=== PATIENT | female | born 1990 | race Caucasian/White ===

== ENCOUNTER → 2018-03-14 18:53 | Outpatient (CLI) | payer OTHER, SELFPAY ==
[2018-03-19 12:16] LABS: HPV Reflexed? NOT INDICATED
== END ==
PROVIDERS: Referring Provider Obstetrics & Gynecology; Visit Provider Obstetrics & Gynecology
DX: Z12.4 Encounter for screening for malignant neoplasm of cervix (principal)
CPT/HCPCS: 88175; G0145

== ENCOUNTER → 2019-03-18 11:25 | Outpatient (CLI) | payer OTHER, SELFPAY ==
--- NOTE | 2019-03-18 11:29 | RAD_ITS ---
STUDY: X-RAY - RIGHT SHOULDER REASON FOR EXAM: Female, 28 years old. Shoulder pain, no trauma TECHNIQUE: 4 view(s) of the shoulder. COMPARISON: None. FINDINGS: Normal glenohumeral articulation. Normal acromioclavicular joint. Normal acromion. Normal humeral head and visualized proximal humerus. The soft tissue structures are unremarkable. There is no demonstrated fracture. Normal visualized pulmonary apex. RAD/Shoulder min 2 Views IMPRESSION: Normal x-ray examination of the shoulder. Electronically Signed: Errol Ni MD at 23:02 EST , Service support ,
== END ==
PROVIDERS: Family Provider Family Medicine; PCP Family Medicine; Referring Provider Family Medicine; Visit Provider Family Medicine
DX: M25.511 Pain in right shoulder (principal)
CPT/HCPCS: 73030

== ENCOUNTER → 2020-12-25 | Outpatient (CLI) | payer OTHER, SELFPAY ==
[2020-12-31 16:53] LABS: HPV APTIMA, High Risk Negative (Negative)
== END | disposition home or self-care (01) ==
LOC: LABSPEC 14:07
PROVIDERS: PCP Family Medicine; Visit Provider Student in an Organized Health Care Education/Training Program
DX: Z12.4 Encounter for screening for malignant neoplasm of cervix (principal)
CPT/HCPCS: 87624; 88175; G0145

== ENCOUNTER → 2022-07-28 | Outpatient (CLI) | payer OTHER, SELFPAY ==
[2022-07-28 14:58] LABS: Hematocrit 35.5 % (37-47); Hemoglobin 12.5 g/dL (12.0-15.0); Mean Corp Hgb Conc 35.2 g/dL (32-36); Mean Corpuscular Hgb 32.9 pg (27.0-32.0); Mean Corpuscular Volume 93.4 fL (81-99); Mean Platelet Vol. 10.8 fl (6.2-12.0); Platelet Count 305 K/mm3 (150-450); RBC Distribution Width SD 41.3 fl (35.1-43.9)
[2022-07-28 15:16] LABS: Progesterone Level 0.27 ng/mL (See Comment)
[2022-07-28 16:12] LABS: Estradiol 137.7 pg/mL; Follicle Stimulating Hormone 2.7 mIU/mL; Luteinizing Hormone 5.7 mIU/mL; Prolactin 8.5 ng/mL; T4 Free Direct 0.91 ng/dL (0.76-1.46); Thyroid Stim Hormone (TSH) 1.77 uIU/mL (0.358-3.74)
[2022-08-04 12:09] LABS: Testosterone, % Free 1.46 % (0.50-2.80); Testosterone, Free 0.31 ng/dL (0.10-0.85); Testosterone, Total 21 ng/dL (8-60)
== END | disposition home or self-care (01) ==
LOC: WOBLAB 13:24
PROVIDERS: PCP Family Medicine; Visit Provider Student in an Organized Health Care Education/Training Program
DX: N92.6 Irregular menstruation, unspecified (principal)
CPT/HCPCS: 36415; 82627; 82670; 83001; 83002; 84144; 84146; 84402; 84403; 84439; 84443; 85027; 82626

== ENCOUNTER 2023-08-02 12:54 | Emergency (ER) | payer OTHER, SELFPAY ==
[2023-08-02 12:55] VITALS: BP 131/93; PULSE 66; RESP 14; TEMP 36.1; O2SAT 97; BMI 25.9
--- NOTE | 2023-08-02 13:22 | EKG12_ITS ---
Test Reason : CP Blood Pressure : / mmHG Vent. Rate : 070 BPM Atrial Rate : 070 BPM P-R Int : 162 ms QRS Dur : 072 ms QT Int : 382 ms P-R-T Axes : 017 045 050 degrees QTc Int : 412 ms Normal sinus rhythm with sinus arrhythmia Normal ECG No previous ECGs available Confirmed by DAVID DANIEL, SHERWIN ([id number]), purchase request editor SLY WAHL ([id number]) on 08/08/2023 6:13:25 AM Referred By: JESÚS/XAVIER Confirmed By:SHERWIN HERNANDEZ MD
[2023-08-02 13:29] VITALS: O2SAT 97
[2023-08-02] MEDS: Aspirin 81 MG TAB.CHEW 324 MG PO (13:32)
--- NOTE | 2023-08-02 13:39 | ED.VIS.CHEST ---
HPI History of Present Illness Chief Complaint: Chest Pain Informant: patient Onset/Context/Timing Onset: Today Activity at onset: sudden Timing: Continuous Quality: Positive for Sharp Location: Substernal Worsened By: Nothing Relieved By: - (Hot bath) Associated Symptoms: Positive for Nausea and Vomiting; Negative for Diaphoresis, Dyspnea, Cough, Fever, Lightheadedness, Acid Reflux or Palpitations Narrative Narrative: Patient presents with chest pain that began today. Patient states it began earlier this morning. Patient states it began rather suddenly. Patient describes it as sharp pain over her lower sternum and tightness around her lower chest. Patient states it got somewhat better after taking a hot bath. Patient admits to an episode of nausea and vomiting. Patient denies any shortness of breath or diaphoresis. Patient denies any lightheadedness or dizziness. Patient denies any cough or fever. CVD Risk Factors: Negative for Hypertension, Diabetes, Hypercholesterolemia, Family History 1' </=55 or Smoking PE Risk Factors: Negative for Recent Travel/Surgery, Recent Immobilization, Prior DVT or PE or Cancer PFSH PFSH Medical History no medical history no medical history Home Medications ?Medication ?Instructions ?Recorded ?Last Taken ?Type omeprazole 20 mg capsule,delayed 20 mg PO DAILY #30 CAPSULES 08/02/23 Unknown Rx release Allergy/AdvReac Type Severity Reaction Status Date / Time No Known Allergies Allergy Verified 08/02/23 12:57 Surgical History no surgical history no surgical history Social History Smoking Status: Never smoker ROS ROS ED Constitutional Constitutional ED: Reports chills; Denies fever(s) Eyes Eyes: Denies blurry vision or change in vision ENT ENT ED: Denies rhinorrhea or sore throat Cardiovascular Cardiovascular: Reports chest pain; Denies palpitations Respiratory/Chest Respiratory/Chest: Denies cough or dyspnea Gastrointestinal Gastrointestinal: Reports nausea and vomiting; Denies abdominal pain Genitourinary Genitourinary ED: Denies dysuria or hematuria Musculoskeletal Musculoskeletal: Reports back pain; Denies neck pain Integumentary Denies abscess or rash Neurologic Neurologic: Denies headache(s) or weakness Allergic/Immunologic Allergic/Immunologic ED: Denies mouth swelling or urticaria EXAM Physical Exam Const Vital Signs: 08/02/23 12:55 08/02/23 13:29 08/02/23 13:55 Temperature 96.9 F L Temperature Source Temporal Pulse Rate 66 74 Respiratory Rate 14 18 Blood Pressure 131/93 H 135/92 H Blood Pressure Mean 105 106 Pulse Ox 97 97 98 Oxygen Delivery Method Room Air Room Air Room Air 08/02/23 14:00 Temperature 97.8 F Temperature Source Temporal Pulse Rate 97 Respiratory Rate 16 Blood Pressure 135/92 H Blood Pressure Mean 106 Pulse Ox 96 Oxygen Delivery Method Room Air Positive well nourished and well developed General Appearance ED: well developed and NAD HEENT Reports moist mucous membranes Neck supple and no JVD Chest Wall Chest Narrative: There is reproducible tenderness over the lower sternum. There is no bony crepitance or step-off noted. There is no subcutaneous emphysema noted. Resp normal respiratory effort and clear to auscultation bilaterally Cardio regular rate and regular rhythm GI soft to palpation, non-tender and non-distended Extremity normal to inspection Neuro oriented x3, CN's II-XII intact bilaterally and no sensory deficits noted Sensorium / Orientation: awake and alert Motor Exam: strength 5/5 throughout Psych mental status grossly normal Heart Score History: Moderately Suspicious ECG: Normal Age: </= 45 years Risk Factors: No Risk Factors Troponin: </= Normal Limit Score: 1 MDM MDM MDM Narrative Medical decision making narrative: Differential diagnosis includes cardiac dysrhythmia, cardiac ischemia, pulmonary embolism, pneumonia, pneumothorax, electrolyte abnormality, GERD, and anxiety. EKG will be obtained to assess for cardiac dysrhythmia and cardiac ischemia. Chest x-ray will be obtained to assess for pneumonia and pneumothorax. CBC will be obtained to assess for leukocytosis and anemia. Basic metabolic profile will be obtained to assess for electrolyte abnormality and renal function. High-sensitivity troponin will be obtained to assess for cardiac ischemia. D-dimer will be obtained to assess for pulmonary embolism. Lab Data Attestation: I reviewed the patient's lab results. Lab results narrative: CBC was reviewed. There is a mild leukocytosis of 16.1. The remainder was within normal limits. Basic metabolic profile was reviewed and was within normal limits. High-sensitivity troponin was reviewed and was normal at 3. D-dimer was reviewed and was elevated at 0.65. Serum hCG was reviewed and was negative. Labs: Laboratory Results - last 24 hr 08/02/23 08/02/23 13:20 14:13 WBC 16.1 H RBC 4.29 Hgb 13.5 Hct 39.6 MCV 92.3 MCH 31.5 MCHC 34.1 RDW Std Deviation 40.5 RDW Coeff of Remigio 12.0 Plt Count 349 MPV 11.5 Immature Gran % (Auto) 0.600 Neut % (Auto) 82.6 H Lymph % (Auto) 9.8 L [place] % (Auto) 6.9 Eos % (Auto) 0.0 Baso % (Auto) 0.1 Absolute Neuts (auto) 13.3 H Absolute Lymphs (auto) 1.58 Nucleated RBC % 0 D-Dimer Quant (PE/DVT) 0.65 H* Sodium 135 L Potassium 3.8 Chloride 101 Carbon Dioxide 25.0 Anion Gap 9 BUN 11 Creatinine 0.79 Estim Creat Clear Calc 96.29 Est GFR (MDRD) Af Amer 108 Est GFR (MDRD) Non-Af 89 BUN/Creatinine Ratio 13.9 Glucose 115 H Calcium 9.7 Troponin I High Sens 3 Serum , Qual NEGATIVE Radiography Chest X-Ray - ED: 2 View, Read by ED Physician, Read by Radiologist and No Acute Disease Diagnostic Testing: Clinical Impression(s) from Imaging Studies Chest X-Ray 08/02/23 13:44 IMPRESSION: Scattered calcified granulomas. No acute abnormality is seen. Electronically Signed: Ryder Diamond MD at 14:01 EDT , Chest CTA 08/02/23 14:45 IMPRESSION: Normal CTA chest examination, without a demonstrated pulmonary embolism or arterial dissection. Electronically Signed: Ryder Diamond MD at 15:09 EDT , PA and lateral chest x-ray was obtained. There are 2 views. On my independent interpretation, lung hood are clear. There is normal cardiac silhouette. Bony thorax is normal. There is no acute process noted. Radiologist also interpreted the x-ray and agrees. Because of the elevated D-dimer, CTA of the chest was obtained. There is no evidence of pulmonary embolism or aortic dissection. Was interpreted by the radiologist was also independently reviewed by myself. EKG Initial EKG: Attestation: I personally reviewed and interpreted this EKG as follows: Interpretation: Sinus Rhythm (70) and No Acute Injury Pattern Comments: EKG was obtained. On my independent interpretation, it showed a normal sinus rhythm with a rate of 70. OH interval, QRS interval, and QTc intervals were all normal. [place] was normal. There are no acute ST or T wave changes. Prior EKG tracings: not available for review Prior: No Prior Treatment and Re-Evaluation :: Patient was given aspirin here. Patient was advised of her findings. Patient has a HEART score of 1. Patient was advised that this is low risk for acute cardiac event. Patient is feeling better on reevaluation. Patient was given a prescription for omeprazole. Patient was instructed to follow-up with her primary care physician in 5 to 7 days. Patient was instructed to return if worse in any way. Patient understood and was agreeable with the plan. All questions were answered. Discharge Plan Triage Chief Complaint: Chest Pain ED Provider: Mina Tate Dx/Rx/DC Orders Clinical Impression: Chest pain of uncertain etiology, GERD (gastroesophageal reflux disease) Instructions: ED Chest Pain, Uncertain Cause Prescriptions: New omeprazole 20 mg capsule,delayed release(DR/EC) 20 mg PO DAILY Qty: 30 0RF Primary Care Provider: Naman Wilkerson Referrals: Naman Wilkerson MD [Primary Care Provider] - 5-7 Days Print Language: Macedonian Disposition Disposition: Home, Self Care
[2023-08-02 13:41] LABS: Absolute Lymphocyte Count 1.58 X10^3/uL (0.83-4.51); Absolute Neutrophil Count 13.3 X10^3/uL (2.0-7.7); Basophil# 0.02 X10^3/uL; Basophil% 0.1 % (0-1); Hematocrit 39.6 % (37-47); Hemoglobin 13.5 g/dL (12.0-15.0); Lymphocyte # 1.58 X10^3/ul (0.83-4.51); Lymphocyte % 9.8 % (19-41); Mean Corp Hgb Conc 34.1 g/dL (32-36); Mean Corpuscular Hgb 31.5 pg (27.0-32.0); Mean Corpuscular Volume 92.3 fL (81-99); Mean Platelet Vol. 11.5 fl (6.2-12.0); Monocyte# 1.11 X10^3/uL; Monocyte% 6.9 % (0-10); NRBC Flagged by Analyzer 0 % (0-5); Neutrophil # 13.27 X10^3/uL (2.7-7.7); Neutrophil % 82.6 % (47-70); Platelet Count 349 K/mm3 (150-450); RBC Distribution Width SD 40.5 fl (35.1-43.9); Red Blood Count 4.29 M/mm3 (4.2-5.4); White Blood Count 16.1 K/mm3 (4.4-11.0)
--- NOTE | 2023-08-02 13:44 | RAD_ITS ---
STUDY: X-RAY CHEST REASON FOR EXAM: Female, 33 years old. Chest pain TECHNIQUE: PA and lateral views of the chest. COMPARISON: None. FINDINGS: EKG electrodes are seen. Scattered calcified granulomas. The lungs are clear. There is no demonstrated pleural abnormality. Normal size heart. Calcified bilateral hilar lymph nodes. Normal visualized pulmonary arteries. Normal visualized aortic arch and descending thoracic aorta. Normal visualized thoracic spine. Normal visualized ribs, clavicles, and shoulders. There is no demonstrated abnormality of the visualized soft tissue structures of the upper abdomen. RAD/Chest PA and Lateral IMPRESSION: Scattered calcified granulomas. No acute abnormality is seen. Electronically Signed: Ryder Diamond MD at 14:01 EDT ,
[2023-08-02 13:47] LABS: Anion Gap 9 (5-15); BUN 11 mg/dL (7-18); BUN/Creat Ratio 13.9 RATIO (10-20); Calcium,Total 9.7 mg/dL (8.5-10.1); Chloride 101 mmol/L (98-107); Creatinine, Serum 0.79 mg/dL (0.55-1.02); EST Glomerular Filtration Rate 89 mL/min (>60); Est Glom Filt Rate - Afr Amer 108 mL/min (>60); Estimated Creatinine Clearance 96.29 ml/min; Glucose 115 mg/dL (74-106); Potassium 3.8 mmol/L (3.5-5.1); Sodium Level 135 mmol/L (136-145); Troponin-I HS 3 pg/mL (3.0-54.0)
[2023-08-02 13:51] LABS: D-Dimer Quantitative (DVT/PE) 0.65 FEU/ug/m (0.27-0.49)
[2023-08-02 13:55] VITALS: BP 135/92; PULSE 74; RESP 18; O2SAT 98
[2023-08-02 14:00] VITALS: BP 135/92; PULSE 97; RESP 16; TEMP 36.6; O2SAT 96
[2023-08-02 14:35] LABS: Internal QC Validated? YES +Cl - CLEAR BKGD; Pregnancy, Serum, hCG Quali. NEGATIVE Negative
--- NOTE | 2023-08-02 14:45 | CT_ITS ---
STUDY: CTA CHEST REASON FOR EXAM: Female, 33 years old. Elevated D-dimer RADIATION DOSAGE (If Supplied By Facility): CTDIvol = ( 7.38 ) mGy, DLP = ( 260.84 ) mGycm TECHNIQUE: The examination was performed with the intravenous administration of IV 100mL Isovue-370. Post-processing of the angiographic images was performed, with multiplanar reformation and 3D reconstruction. Individualized dose optimization techniques were used for this CT. COMPARISON: Comparison is made with prior chest radiograph done earlier today. FINDINGS: Normal enhancement of the main pulmonary artery and right and left pulmonary arteries. Normal enhancement of the bilateral peripheral pulmonary arteries. There is no demonstrated pulmonary embolism. Normal thoracic aorta and visualized great vessels. There is no demonstrated aortic dissection. Normal heart and pericardium. Normal mediastinum. Normal hilar regions. Normal visualized trachea and bronchi. The lungs are well expanded. Normal pulmonary parenchyma. Normal pleura. Normal chest wall structures. Normal osseous structures. Normal visualized upper abdomen. CT/CTA Chest W/WO Contrast IMPRESSION: Normal CTA chest examination, without a demonstrated pulmonary embolism or arterial dissection. Electronically Signed: Ryder Diamond MD at 15:09 EDT ,
[2023-08-02 15:00] VITALS: BP 102/77; PULSE 72; RESP 18; O2SAT 98
[2023-08-02 15:30] VITALS: BP 102/77; PULSE 68; RESP 15; TEMP 36.3; O2SAT 100
== END 2023-08-02 15:30 | disposition home or self-care (01) ==
PROVIDERS: Emergency Provider Emergency Medicine; PCP Family Medicine; Visit Provider Emergency Medicine
DX: R07.9 Chest pain, unspecified (principal); K21.9 Gastro-esophageal reflux disease without esophagitis; R11.2 Nausea with vomiting, unspecified; M54.9 Dorsalgia, unspecified
CPT/HCPCS: 71046; 71275; 80048; 84484; 84703; 85025; 85379; 93005; 99284; Q9967; A4216

== ENCOUNTER 2023-12-13 13:55 | Inpatient (IN) | payer OTHER, SELFPAY ==
[2023-12-13] VITALS (7 sets, daily range): BP systolic 126–141; BP diastolic 84–99; PULSE 76–91; RESP 16–18; TEMP 36.7–36.9; O2SAT 97–100; BMI 24.5; BMI 28.9
--- NOTE | 2023-12-13 14:13 | CT_ITS ---
STUDY: CT ABDOMEN AND PELVIS WITH CONTRAST REASON FOR EXAM: Female, 33 years old. Upper abd pain RADIATION DOSAGE (If Supplied By Facility): CTDIvol = ( 15.80 ) mGy, DLP = ( 588.95 ) mGycm TECHNIQUE: Transaxial images were obtained from the dome of the diaphragm to the symphysis pubis without oral contrast. IV 75mL Isovue-370 was administered. Sagittal and coronal images were reconstructed. Individualized dose optimization techniques were used for this CT. COMPARISON: None. FINDINGS: The visualized lung bases are unremarkable. The visualized portions of the heart are within normal limits. Intrahepatic biliary ductal dilatation. The gallbladder is distended. Mild degree of bladder wall thickening. Dilatation of the common bile duct down to the head of the pancreas. No definite choledocholithiasis seen. Endoscopic correlation to rule out possible sphincter of Oddi abnormality recommend Normal spleen. Normal pancreas. Normal bilateral adrenal glands. Normal right kidney. Normal left kidney. Normal visualized stomach. Normal small intestine. Normal colon. The appendix is visualized and appears normal. Normal abdominal aorta. Normal inferior vena cava. Normal retroperitoneum. Normal urinary bladder. Normal abdominal wall. Normal osseous structures. Loss of the normal lumbar lordosis. CT/Abdomen/Pelvis W IV Cont ONLY IMPRESSION: Gallbladder is distended with dilated intrahepatic biliary ducts as well as dilated common bile duct down to the level of the ampulla of Vater. Correlation with ultrasound is recommended for further evaluation. A lesion in the region of the ampulla of Vater should be removed. Electronically Signed: Ryder Diamond MD at 14:54 EDT ,
--- NOTE | 2023-12-13 14:15 | ED.VIS.GI ---
HPI HPI - GI History of Present Illness Chief Complaint: Chest Pain Detail of Chief Complaint: Epigastric abdominal pain radiating in the chest. Informant: patient Abdominal Pain/Flank Pain Onset: Weeks Context: Gradual Onset Timing: Continuous Quality: Aching and Burning Location: Epigastric and See Diagram (Radiates into chest and back.) Current Severity: Mild Maximum Severity: Moderate Worsened by: Food Relieved by: Nothing Nausea/Vomiting/Emesis GI Symptom: Positive for Nausea and Vomiting Onset: Days Severity: Mild Diarrhea/Melena/Hematochezia GI Symptom: Negative for Diarrhea, Melena or Hematochezia Associated Symptoms Associated Symptoms: Negative for Dysuria, Frequency, Hematuria or Urgency LMP: 3 weeks ago Narrative Narrative: 33-year-old healthy female no seen past medical history. No seen prior abdominal surgeries. States 2 weeks ago started in epigastric Randy pain radiating her chest and back. Primary care physician's office started her on omeprazole twice a day, Carafate 4 times a day and Zofran. Sincerity she has had nausea vomiting with difficulty keeping anything down. No diarrhea. No dysuria. She has had low-grade fevers of 100 201. Denies any vaginal bleeding or discharge. Last menstrual period was about 3 weeks ago. She has had a recent workup for chest pain and it was negative. Prior similar symptoms: No Recent Illness/Hospitalization: No PFSH PFSH Medical History Gastric ulcer Medical History no medical history no medical history Home Medications ?Medication ?Instructions ?Recorded ?Last Taken ?Type omeprazole 20 mg capsule,delayed 20 mg PO DAILY #30 CAPSULES 08/02/23 12/13/23 Rx release norethin-ethinyl estradiol-iron 1 tab PO QDAY 12/13/23 12/12/23 History 0.8 mg-25 mcg(24)/75 mg(4) chew tablet ondansetron 8 mg disintegrating 8 mg PO Q8H PRN nausea 12/13/23 12/12/23 History tablet Allergy/AdvReac Type Severity Reaction Status Date / Time No Known Allergies Allergy Verified 12/13/23 13:59 Family History Other Hyperlipidemia Hypertension Social History Smoking Status: Never smoker alcohol intake: current alcohol intake frequency: a few times a week substance use type: does not use frequency: 1-2 times per week ROS ROS ED ROS Narrative Epigastric abdominal pain. Nausea and vomiting. Intermittent fever. Constitutional Constitutional ED: Reports chills and fever(s) ENT ENT ED: Denies ear pain Cardiovascular Cardiovascular: Reports chest pain Respiratory/Chest Respiratory/Chest: Denies cough or dyspnea Gastrointestinal Gastrointestinal: Reports abdominal pain, nausea and vomiting; Denies constipation, diarrhea or melena Genitourinary Genitourinary ED: Denies dysuria or hematuria Musculoskeletal Musculoskeletal: Reports back pain; Denies arthralgias Neurologic Neurologic: Denies headache(s) Psychiatric Psychiatric: Denies anxiety Endocrine Endocrinology: Denies polydipsia Hematologic/Lymphatic Hematologic/Lymphatic: Denies easy bleeding Allergic/Immunologic Allergic/Immunologic ED: Denies mouth swelling EXAM Physical Exam Narrative Exam Narrative: 33-year-old female vital signs stable afebrile. Pulse ox 9% on room air no hypoxia. No distress. Sitting upright in bed. Clinically looks well. H EENT exam unremarkable. Mytrex membranes. Neck nontender no lymphadenopathy. Lungs clear to auscultation bilateral. Heart regular rate and rhythm rate about 80 no murmur. Chest wall ribs nontender. Back nontender. No reproducible pain. Abdomen soft nondistended normal bowel sounds no peritoneal signs. Epigastric reproducible pain. Right upper or right lower quadrant unremarkable. No hernia or mass. No distention or obstruction. Soft. Flat abdomen. Moving all 4 extremities. Nontender no edema. She is awake and alert. No focal motor deficits. Const Vital Signs: 12/13/23 13:57 12/13/23 14:39 12/13/23 14:55 Temperature 98.1 F Temperature Source Oral Pulse Rate 81 76 Respiratory Rate 16 16 Respiratory Effort Normal Non-Labored Blood Pressure 141/94 H 131/85 H Blood Pressure Mean 109 100 Pulse Ox 100 97 Oxygen Delivery Method Room Air Room Air 12/13/23 15:34 Temperature 98.2 F Temperature Source Pulse Rate 91 Respiratory Rate 18 Respiratory Effort Blood Pressure 131/85 H Blood Pressure Mean 100 Pulse Ox 99 Oxygen Delivery Method Positive well nourished and well developed; Negative for obese, cachectic, contractures or unkempt General Appearance ED: well developed and NAD; Negative for unkempt, cachectic, contractures or pallor Nutritional Appearance: Negative for cachectic or obese HEENT Reports moist mucous membranes normocephalic and atraumatic; Negative for trauma or tenderness Eyes PERRL and EOMs intact bilaterally General Eye ED: Negative for pale conjunctiva or scleral icterus Neck no lymphadenopathy, supple and no JVD General: Negative for tenderness Carotids: Negative for other Lymph Lymphatic: Negative for other Resp normal respiratory effort and clear to auscultation bilaterally Auscultation: Negative for rales, rhonchi or wheezes Cardio regular rate, regular rhythm, S1 normal heart sound, S2 normal heart sound and no murmurs Rate: Negative for bradycardia or tachycardic Rhythm: Negative for abnormal rhythm GI non-distended and no masses; Negative for non-tender GI Narrative: Reproducible tenderness epigastric region only. No hernia or mass. No distention. Soft. Auscultation: normoactive bowel sounds Palpation: soft and tender; Negative for guarding, hepatomegaly, splenomegaly, hernia, mass, pulsatile mass or rebound tenderness present Back/Spine no CVA tenderness General Back: Negative for CVA tenderness Cervical Spine: Negative for cervical spine tenderness Thoracic Spine / Upper Back: Negative for thoracic spinal tenderness Lumbar Spine / Lower Back: Negative for lumbar spinal tenderness Coccyx: Negative for other Extremity full ROM General Extremety ED: Negative for edema or tenderness General Extremity: Negative for edema Neuro CN's II-XII intact bilaterally and moves all extremities Sensorium / Orientation: alert, oriented to person, oriented to place and oriented to time; Negative for orientation impaired, confused, lethargic or stuporous Motor Exam: strength 5/5 throughout; Negative for general weakness or strength abnormal Psych mental status grossly normal and thought process normal Appearance: Negative for unkempt Mood & Affect: Negative for depressed, anxious or tearful Skin no wounds General Skin Exam: Negative for jaundice or pallor Lesions: no lesions Rashes: no rashes Trauma: Negative for abrasion Nails: Negative for discolored MDM MDM MDM Narrative Medical decision making narrative: 33-year-old female with epigastric abdominal pain may be reflux versus gastritis versus ulcer or gallbladder disease. Possible bit less likely pancreatitis or gallbladder disease. Patient will be worked up using screening labs for abdominal diagnoses a CT of obtained due to the fever which does not really go along with the rest of that history. Should be treated with Zofran for nausea GI cocktail and Protonix. Repeat exam patient is doing well at 3:30 PM. I spoke to general surgery on-call. Ultrasound will be obtained. I have the hospitalist on page and also GI. Most likely the patient has a stone that is causing obstruction. Will need an ERCP and then decision will be made if needs a cholecystectomy. To be determined. The hospitalist admit the patient. Currently patient is doing well. Abdomen is benign. She and I discussed her test results. History & Record Review Discussion w/independent historian: Patient Additional record(s) reviewed:: Prior inpatient record, Prior outpatient record, Prior ED visit and Prior labs Lab Data Attestation: I reviewed the patient's lab results. Lab results narrative: CBC unremarkable. White count of 9. H&H 13 and 39. Platelets 416. Electrolytes sodium 135. Gap 11. Normal BUN and creatinine of 8 and 0.7. Liver enzymes are elevated including total bilirubin 9.7. AST at 318. ALT of 445. Alk phos of 253. Lipase normal at 70. Serum test negative. UA shows ketones. Positive nitrites but no white or red cells. Only 1+ bacteria. She is having no urinary symptoms. I will not treat that. CAT scan of the abdomen and pelvis shows a dilated gallbladder with dilated intrahepatic biliary ducts. As well as a common bile duct Labs: Laboratory Results - last 24 hr 12/13/23 12/13/23 14:11 14:34 WBC 9.1 RBC 4.19 L Hgb 13.1 Hct 39.3 MCV 93.8 MCH 31.3 MCHC 33.3 RDW Std Deviation 41.0 RDW Coeff of Remigio 11.9 Plt Count 416 MPV 10.8 Immature Gran % (Auto) 0.400 Neut % (Auto) 73.2 H Lymph % (Auto) 16.1 L [place] % (Auto) 9.8 Eos % (Auto) 0.3 Baso % (Auto) 0.2 Absolute Neuts (auto) 6.6 Absolute Lymphs (auto) 1.46 Nucleated RBC % 0 Sodium 135 L Potassium 3.8 Chloride 98 Carbon Dioxide 26.0 Anion Gap 11 BUN 8 Creatinine 0.71 Estim Creat Clear Calc 97.32 Est GFR (MDRD) Af Amer 122 Est GFR (MDRD) Non-Af 101 BUN/Creatinine Ratio 11.3 Glucose 80 Calcium 10.1 Total Bilirubin 9.70 H AST 318 H ALT 445 H Alkaline Phosphatase 253 H Total Protein 8.5 H Albumin 4.1 Globulin 4.4 H Albumin/Globulin Ratio 0.9 Lipase 70 Serum , Qual NEGATIVE Urine Color Yellow Urine Clarity Sl. Cloudy Urine pH 6.5 Ur Specific [place] 1.015 Urine Protein 30 H Urine Glucose (UA) Normal Urine Ketones 150 A* Urine Occult Blood Negative Urine Nitrite Positive H Urine Bilirubin 6 H Urine Urobilinogen 8 H Ur Leukocyte Esterase 25 H Urine RBC 0 SEEN Urine WBC 0-5 SEEN Ur Squamous Epith Cells 0-5 SEEN Urine Bacteria 1+ Urine Mucus 0 SEEN Radiography Diagnostic Testing: Clinical Impression(s) from Imaging Studies Abdomen/Pelvis CT 12/13/23 14:13 IMPRESSION: Gallbladder is distended with dilated intrahepatic biliary ducts as well as dilated common bile duct down to the level of the ampulla of Vater. Correlation with ultrasound is recommended for further evaluation. A lesion in the region of the ampulla of Vater should be removed. Electronically Signed: Ryder Diamond MD at 14:54 EDT , Discharge Plan Dx/Rx/DC Orders Clinical Impression: Abdominal pain, Biliary obstruction, Elevated liver enzymes, Cholelithiasis Disposition Disposition: Acute Care Hospital [facility] Discharge Date/Time: 12/13/23 16:13
[2023-12-13] MEDS: Lidocaine 2% Viscous15 ML UDC 15 ML PO (14:20)
[2023-12-13] MEDS: Ondansetron 4 MG/2 ML Vial IV ×2 (14:20→22:24)
[2023-12-13] MEDS: Mag Hydrox/Al Hydrox/Simeth 30 ML UDC PO (14:20)
[2023-12-13 14:26] LABS: Absolute Lymphocyte Count 1.46 X10^3/uL (0.83-4.51); Absolute Neutrophil Count 6.6 X10^3/uL (2.0-7.7); Basophil# 0.02 X10^3/uL; Basophil% 0.2 % (0-1); Eosinophil# 0.03 X10^3/uL; Eosinophils% 0.3 % (0-5); Hematocrit 39.3 % (37-47); Hemoglobin 13.1 g/dL (12.0-15.0); Lymphocyte # 1.46 X10^3/ul (0.83-4.51); Lymphocyte % 16.1 % (19-41); Mean Corp Hgb Conc 33.3 g/dL (32-36); Mean Corpuscular Hgb 31.3 pg (27.0-32.0); Mean Corpuscular Volume 93.8 fL (81-99); Mean Platelet Vol. 10.8 fl (6.2-12.0); Monocyte# 0.89 X10^3/uL; Monocyte% 9.8 % (0-10); NRBC Flagged by Analyzer 0 % (0-5); Neutrophil # 6.63 X10^3/uL (2.7-7.7); Neutrophil % 73.2 % (47-70); Platelet Count 416 K/mm3 (150-450); RBC Distribution Width CV 11.9 % (11.6-14.6); Red Blood Count 4.19 M/mm3 (4.2-5.4); White Blood Count 9.1 K/mm3 (4.4-11.0)
[2023-12-13 14:37] LABS: Mucous, Urine 0 SEEN /hpf (<or=2+); Red Blood Cells-Urine 0 SEEN /hpf (0-5)
[2023-12-13 14:37] LABS: Internal QC Validated? YES +Cl - CLEAR BKGD; Pregnancy, Serum, hCG Quali. NEGATIVE Negative
[2023-12-13 14:40] LABS: Color, Urine Yellow (Yellow); Glucose, Dipstick Normal (Normal); Leukocyte Esterase-Dipstick 25 /ul (Negative); Nitrite-Dipstick Positive (Negative); Occult Blood-Urine Negative /ul (Negative); Protein-Dipstick 30 mg/dl (Negative); Specific Gravity, Urine 1.015 (1.002-1.030); Urine Clarity Sl. Cloudy (Clear); Urine Urobilinogen 8 mg/dl (Normal); Urine pH 6.5 (5.0 - 8.0)
[2023-12-13 14:41] LABS: Urine Bilirubin Dipstick 6 mg/dL (Negative)
[2023-12-13 14:42] LABS: ALB/GLOB Ratio 0.9 RATIO (0.9-2.4); AST(SGOT) 318 U/L (15-37); Alanine Aminotransfer ALT/SGPT 445 U/L (13-56); Albumin, Serum 4.1 g/dL (3.2-5.0); Alkaline Phosphatase 253 U/L (45-117); Anion Gap 11 (5-15); BUN 8 mg/dL (7-18); BUN/Creat Ratio 11.3 RATIO (10-20); Calcium,Total 10.1 mg/dL (8.5-10.1); Chloride 98 mmol/L (98-107); Creatinine, Serum 0.71 mg/dL (0.55-1.02); EST Glomerular Filtration Rate 101 mL/min (>60); Est Glom Filt Rate - Afr Amer 122 mL/min (>60); Estimated Creatinine Clearance 97.32 ml/min; Globulin 4.4 g/dL (2.2-4.2); Glucose 80 mg/dL (74-106); Lipase 70 U/L (13-75); Potassium 3.8 mmol/L (3.5-5.1); Protein, Total 8.5 g/dL (6.4-8.2); Sodium Level 135 mmol/L (136-145)
[2023-12-13 14:43] LABS: Ketone-Dipstick 150 mg/dl (Negative)
[2023-12-13 14:45] LABS: Squamous Epithelial Cells - UA 0-5 SEEN /hpf (5-10)
[2023-12-13 14:46] LABS: Bacteria 1+ /hpf (None Seen); White Blood Cells 0-5 SEEN /hpf (0-5)
[2023-12-13] MEDS: Pantoprazole Sodium 40 MG in 0.9% Normal Saline (100mL MB+) 100 ML 330 MG IV (14:47)
--- NOTE | 2023-12-13 15:33 | HP.PCM.HOS_ITS ---
HPI - General General Date of Admission: 12/13/23 Date of Service: 12/13/23 Chief Complaint: Epigastric pain HPI Narrative KENNETH BEARDEN, is a 33 F with no significant medical history who presents emergency department with excruciating epigastric pain that radiated to her back. The pain is persistent. She describes the pain as sharp. The pain started about 2 weeks ago. Associated with her symptoms is nausea and vomiting. Also she reports a fever of 101 ?F at home. Patient was started on a PPI and Carafate at home. However his symptoms persisted. As her symptoms progressed she noticed yellowish discoloration of her skin in her eyes. Also her urine has been dark. [facility] Medical History Gastric ulcer Medical History no medical history Home Medications ?Medication ?Instructions ?Recorded ?Last Taken ?Type omeprazole 20 mg capsule,delayed 20 mg PO DAILY #30 CAPSULES 08/02/23 12/13/23 Rx release norethin-ethinyl estradiol-iron 1 tab PO QDAY 12/13/23 12/12/23 History 0.8 mg-25 mcg(24)/75 mg(4) chew tablet ondansetron 8 mg disintegrating 8 mg PO Q8H PRN nausea 12/13/23 12/12/23 History tablet Allergy/AdvReac Type Severity Reaction Status Date / Time No Known Allergies Allergy Verified 12/13/23 13:59 Family History Other Hyperlipidemia Hypertension no surgical history Social History Smoking Status: Never smoker alcohol intake: current alcohol intake frequency: a few times a week substance use type: does not use frequency: 1-2 times per week ROS ROS Narrative Pertinent positives and pertinent negatives as noted in HPI. All other systems were reviewed and are negative Vital Signs Vital Signs Vital Signs: 12/13/23 13:57 12/13/23 14:39 12/13/23 14:55 Temperature 98.1 F Temperature Source Oral Pulse Rate 81 76 Respiratory Rate 16 16 Respiratory Effort Normal Non-Labored Blood Pressure 141/94 H 131/85 H Blood Pressure Mean 109 100 Pulse Ox 100 97 Oxygen Delivery Method Room Air Room Air Weight Weight: 64.864 kg Body Mass Index (BMI) 24.5 Physical Exam Narrative Physical exam: General: Well-nourished, well-developed. Head: Normocephalic, atraumatic, no tenderness Eyes: Scleral icterus. Vision is grossly intact. EOMI ENT, no trauma, moist mucous membranes, no rhinorrhea Neck: Nontender, No thyromegaly. CVS: Regular rate and rhythm. S1-S2 present. No murmur, gallop or rub. Respiratory : clear to auscultation bilaterally, chest wall nontender Abdomen: Soft, nondistended, normal bowel sounds, no masses : Deferred Back: Nontender, no CVA tenderness, no midline spinal tenderness, deformities, step-offs Extremities: Nontender full range of motion, no trauma Skin: Jaundice, no trauma, abrasions Neuro: Alert, oriented, cranial nerves II through XII grossly intact. Psychiatry: Normal mood. Normal affect. Not depressed. Not anxious. Results Lab / Micro Data 12/13/23 14:11 12/13/23 14:11 Labs: Laboratory Results - last 24 hr 12/13/23 14:11: WBC 9.1, RBC 4.19 L, Hgb 13.1, Hct 39.3, MCV 93.8, MCH 31.3, MCHC 33.3, RDW Std Deviation 41.0, RDW Coeff of Remigio 11.9, Plt Count 416, MPV 10.8, Immature Gran % (Auto) 0.400, Neut % (Auto) 73.2 H, Lymph % (Auto) 16.1 L, [place] % (Auto) 9.8, Eos % (Auto) 0.3, Baso % (Auto) 0.2, Absolute Neuts (auto) 6.6, Absolute Lymphs (auto) 1.46, Nucleated RBC % 0, Sodium 135 L, Potassium 3.8, Chloride 98, Carbon Dioxide 26.0, Anion Gap 11, BUN 8, Creatinine 0.71, Estim Creat Clear Calc 97.32, Est GFR (MDRD) Af Amer 122, Est GFR (MDRD) Non-Af 101, BUN/Creatinine Ratio 11.3, Glucose 80, Calcium 10.1, Total Bilirubin 9.70 H , AST 318 H, ALT 445 H, Alkaline Phosphatase 253 H, Total Protein 8.5 H, Albumin 4.1, Globulin 4.4 H, Albumin/Globulin Ratio 0.9, Lipase 70, Serum , Qual NEGATIVE 12/13/23 14:34: Urine Color Yellow, Urine Clarity Sl. Cloudy, Urine pH 6.5, Ur Specific [place] 1.015, Urine Protein 30 H, Urine Glucose (UA) Normal, Urine Ketones 150 A*, Urine Occult Blood Negative, Urine Nitrite Positive H, Urine Bilirubin 6 H, Urine Urobilinogen 8 H, Ur Leukocyte Esterase 25 H, Urine RBC 0 SEEN, Urine WBC 0-5 SEEN, Ur Squamous Epith Cells 0-5 SEEN, Urine Bacteria 1+, Urine Mucus 0 SEEN Imaging Radiology Impression Abdomen/Pelvis CT 12/13/23 14:13 IMPRESSION: Gallbladder is distended with dilated intrahepatic biliary ducts as well as dilated common bile duct down to the level of the ampulla of Vater. Correlation with ultrasound is recommended for further evaluation. A lesion in the region of the ampulla of Vater should be removed. Electronically Signed: Ryder Diamond MD at 14:54 EDT , Assessment & Plan Assessment/Plan (1) Elevated liver enzymes: (2) Biliary obstruction: (3) Abdominal pain: QUALIFIERS: Abdominal location: epigastric Qualified Code(s): R 10.13 - Epigastric pain PLAN: Plan Abdomen and pelvis CT was independently interpreted. Results are : Agrees with delayed interpretation Symptomatic treatment with IV fluids. As needed Zofran for nausea and vomiting. Dilaudid IV as needed for pain NPV for ultrasound and n.p.o. after midnight. In between patient and have clear liquids We will hold off antibiotics for now. If patient has subjective fever consider antibiotics GI consult. General surgery consult. DVT prophylaxis: SCDs ordered Advance care planning: Discussed with patient and family advanced directives as well as CODE STATUS. Explained various CODE STATUS: FULL CODE, DNR CCA, DNR CCA with no intubation, and DNR CC- and what each meant. Patient elected to be a full code with CPR and intubation if warranted. Order was placed. Time spent on discussion 16 minutes. Time spent in the patient's overall evaluation,decision-making process, review of diagnostic data, adjustment of management, discussion with other providers, nursing and ancillary staff involved in patient's care documentation, 75 minutes. Charges/Coding Visit Charges Inpatient E&M: 58394 Init Hosp L3 Procedures Hospitalists Procedures: 40868 Advncd Care Plan 30 Min
--- NOTE | 2023-12-13 15:42 | US_ITS ---
INDICATION: biliary obstruction and pain EXAMINATION: Ultrasound US Abdomen RUQ (limited) TECHNIQUE: Galan-scale and color Doppler imaging was performed of the abdomen. COMPARISON: FINDINGS: LIVER: There is normal echotexture measuring 17.1 cm. No focal hepatic lesion. No intrahepatic biliary ductal dilatation. There is no free fluid. GALLBLADDER AND BILIARY TREE: Cholelithiasis and sludge. No pericholecystic fluid. Borderline gallbladder wall thickening is demonstrated. The proximal common bile duct measures 9 mm, which is dilated.. SONOGRAPHIC GERMAIN''S SIGN: Positive. PANCREAS: No focal abnormality is demonstrated in the pancreas. No pancreatic ductal dilatation. RIGHT KIDNEY: 11.0 x 5.7 x 5.0 cm. The cortex is 15 mm. There is no hydronephrosis. No shadowing calculus, focal lesion, or perinephric collection is demonstrated. VESSELS: Submitted longitudinal images of the intra-abdominal aorta demonstrate no gross abnormalities and are unremarkable. The IVC is patent. US/Gallbladder IMPRESSION: Cholelithiasis with borderline gallbladder wall thickness. Dilated common bile duct. Positive sonographic Germain''s sign. Electronically Signed: Dontrell Alcala DO at 18:28 EDT Reading Location ID and State: [facility] / [place] Tel [phone], Service support ,
--- NOTE | 2023-12-13 15:45 | NURSING ---
MED SURG AGYEPONG ABD PAIN, BILIARY OBSTRUCTION, ELEVATED LIVER ENZYMES
--- NOTE | 2023-12-13 18:29 | EX.PCM.CON.G ---
HPI Consult Data Date of Consult: 12/13/23 HPI Narrative Reason for Consultation: Jaundice, fever and hepatitis HPI Narrative: jorge SMITH as33 F with no significant medical history who presents emergency department with excruciating epigastric pain that radiated to her back. The pain is persistent. She describes the pain as sharp. The pain started about 2 weeks ago. Associated with her symptoms is nausea and vomiting. Also she reports a fever of 101 ?F at home. Patient was started on a PPI and Carafate at home. However his symptoms persisted. As her symptoms progressed she noticed yellowish discoloration of her skin in her eyes. Also her urine has been dark. She was seen in the gastrology clinic today and was told to come over to the ED. She was afebrile in the ED and normotensive with a blood pressure of 138/97 and a pulse of 86, respiratory rate of 18, temperature 98.2 and satting 98% on room air. Labs in the ED : WBC 9.1, RBC 4.19 L, Hgb 13.1, Hct 39.3, MCV 93.8, MCH 31.3, MCHC 33.3, RDW Std Deviation 41.0, RDW Coeff of Remigio 11.9, Plt Count 416 Sodium 135 L, Potassium 3.8, Chloride 98, Carbon Dioxide 26.0, Anion Gap 11, BUN 8, Creatinine 0.71, Glucose 80, Calcium 10.1, Total Bilirubin 9.70 H, AST 318 H, ALT 445 H, Alkaline Phosphatase 253 H, Total Protein 8.5 H, Albumin 4.1, Globulin 4.4 H, Urine Color Yellow, Urine Clarity Sl. Cloudy, Urine pH 6.5, Ur Specific [place] 1.015, Urine Protein 30 H, Urine Glucose (UA) Normal, Urine Ketones 150 A*, Urine Occult Blood Negative, Urine Nitrite Positive H, Urine Bilirubin 6 H, Urine Urobilinogen 8 H, Ur Leukocyte Esterase 25 H, Urine RBC 0 SEEN, Urine WBC 0-5 SEEN, Ur Squamous Epith Cells 0-5 SEEN, Urine Bacteria 1+, Urine Mucus 0 SEEN Ultrasound in the emergency room FINDINGS: LIVER: There is normal echotexture measuring 17.1 cm. No focal hepatic lesion. No intrahepatic biliary ductal dilatation. There is no free fluid. GALLBLADDER AND BILIARY TREE: Cholelithiasis and sludge. No pericholecystic fluid. Borderline gallbladder wall thickening is demonstrated. The proximal common bile duct measures 9 mm, which is dilated.. SONOGRAPHIC GERMAIN''S SIGN: Positive. PANCREAS: No focal abnormality is demonstrated in the pancreas. No pancreatic ductal dilatation. RIGHT KIDNEY: 11.0 x 5.7 x 5.0 cm. The cortex is 15 mm. There is no hydronephrosis. No shadowing calculus, focal lesion, or perinephric collection is demonstrated. VESSELS: Submitted longitudinal images of the intra-abdominal aorta demonstrate no gross abnormalities and are unremarkable. The IVC is patent. US/Gallbladder IMPRESSION: Cholelithiasis with borderline gallbladder wall thickness. Dilated common bile duct. Positive sonographic Germain''s sign. CT scan abdomen pelvis in the ED: FINDINGS: The visualized lung bases are unremarkable. The visualized portions of the heart are within normal limits. Intrahepatic biliary ductal dilatation. The gallbladder is distended. Mild degree of bladder wall thickening. Dilatation of the common bile duct down to the head of the pancreas. No definite choledocholithiasis seen. Endoscopic correlation to rule out possible sphincter of Oddi abnormality recommend Normal spleen. Normal pancreas. Normal bilateral adrenal glands. Normal right kidney. Normal left kidney. Normal visualized stomach. Normal small intestine. Normal colon. The appendix is visualized and appears normal. Normal abdominal aorta. Normal inferior vena cava. Normal retroperitoneum. Normal urinary bladder. Normal abdominal wall. Normal osseous structures. Loss of the normal lumbar lordosis. CT/Abdomen/Pelvis W IV Cont ONLY IMPRESSION: Gallbladder is distended with dilated intrahepatic biliary ducts as well as dilated common bile duct down to the level of the ampulla of Vater. Correlation with ultrasound is recommended for further evaluation. A lesion in the region of the ampulla of Vater should be removed. [facility] Medical History Gastric ulcer Medical History no medical history Home Medications ?Medication ?Instructions ?Recorded ?Last Taken ?Type omeprazole 20 mg capsule,delayed 20 mg PO DAILY #30 CAPSULES 08/02/23 12/13/23 Rx release norethin-ethinyl estradiol-iron 1 tab PO QDAY 12/13/23 12/12/23 History 0.8 mg-25 mcg(24)/75 mg(4) chew tablet ondansetron 8 mg disintegrating 8 mg PO Q8H PRN nausea 12/13/23 12/12/23 History tablet Allergy/AdvReac Type Severity Reaction Status Date / Time No Known Allergies Allergy Verified 12/13/23 13:59 Family History Other Hyperlipidemia Hypertension Surgical History no surgical history Social History Smoking Status: Never smoker alcohol intake: current alcohol intake frequency: a few times a week substance use type: does not use frequency: 1-2 times per week ROS Review of Systems ROS Unobtainable: other Constitutional Constitutional: Denies fatigue, fever(s), poor appetite, weight gain or weight loss ENT HEENT: Denies mouth lesions Cardiovascular Cardiovascular: Denies abdominal bloating, abdominal edema or abdominal pain Respiratory/Chest Respiratory/Chest: Denies change in mental status, change in phlegm color, chest congestion or chest tightness Gastrointestinal Gastrointestinal: Denies belching, bloating, change in bowel habits, change in stool character, chewing difficulty, coffee ground emesis, constipation, cramping, diarrhea, dyspepsia, dysphagia, early satiety, excessive flatus, fecal incontinence, heartburn, hematemesis, hematochezia, hemorrhoids, loose stools, melena, nausea, odynophagia, rectal bleeding, tenesmus, vomiting or weight changes Genitourinary Genitourinary: Denies abdominal discomfort, burning urination or itching Musculoskeletal Musculoskeletal: Reports as per HPI; Denies muscle weakness or myalgias Integumentary Integumentary: Denies jaundice Neurologic Neurologic: Denies lack of coordination or weakness Psychiatric Psychiatric: Denies confusion, depression, memory loss, mood swings, paranoia or suicidal ideation Endocrine Endocrinology: Denies systems reviewed and no addt'l complaints, except as documented Hematologic/Lymphatic Hematologic/Lymphatic: Denies anemia, easy bleeding, easy bruising or lymphadenopathy Allergic/Immunologic Allergic/Immunologic: Denies systems reviewed and no addt'l complaints, except as documented Physical Exam Narrative Physical exam: General: Well-nourished, well-developed. Head: Normocephalic, atraumatic, no tenderness Eyes: Scleral icterus. Vision is grossly intact. EOMI ENT, no trauma, moist mucous membranes, no rhinorrhea Neck: Nontender, No thyromegaly. CVS: Regular rate and rhythm. S1-S2 present. No murmur, gallop or rub. Respiratory : clear to auscultation bilaterally, chest wall nontender Abdomen: Soft, nondistended, normal bowel sounds, no masses : Deferred Back: Nontender, no CVA tenderness, no midline spinal tenderness, deformities, step-offs Extremities: Nontender full range of motion, no trauma Skin: Jaundice, no trauma, abrasions Neuro: Alert, oriented, cranial nerves II through XII grossly intact. Psychiatry: Normal mood. Normal affect. Not depressed. Not anxious. Lab / Micro Data 12/13/23 14:11 12/13/23 14:11 Labs: Laboratory Results - last 24 hr 12/13/23 14:11: WBC 9.1, RBC 4.19 L, Hgb 13.1, Hct 39.3, MCV 93.8, MCH 31.3, MCHC 33.3, RDW Std Deviation 41.0, RDW Coeff of Remigio 11.9, Plt Count 416, MPV 10.8, Immature Gran % (Auto) 0.400, Neut % (Auto) 73.2 H, Lymph % (Auto) 16.1 L, [place] % (Auto) 9.8, Eos % (Auto) 0.3, Baso % (Auto) 0.2, Absolute Neuts (auto) 6.6, Absolute Lymphs (auto) 1.46, Nucleated RBC % 0, Sodium 135 L, Potassium 3.8, Chloride 98, Carbon Dioxide 26.0, Anion Gap 11, BUN 8, Creatinine 0.71, Estim Creat Clear Calc 97.32, Est GFR (MDRD) Af Amer 122, Est GFR (MDRD) Non-Af 101, BUN/Creatinine Ratio 11.3, Glucose 80, Calcium 10.1, Total Bilirubin 9.70 H, AST 318 H, ALT 445 H, Alkaline Phosphatase 253 H, Total Protein 8.5 H, Albumin 4.1, Globulin 4.4 H, Albumin/Globulin Ratio 0.9, Lipase 70, Serum , Qual NEGATIVE 12/13/23 14:34: Urine Color Yellow, Urine Clarity Sl. Cloudy, Urine pH 6.5, Ur Specific [place] 1.015, Urine Protein 30 H, Urine Glucose (UA) Normal, Urine Ketones 150 A*, Urine Occult Blood Negative, Urine Nitrite Positive H, Urine Bilirubin 6 H, Urine Urobilinogen 8 H, Ur Leukocyte Esterase 25 H, Urine RBC 0 SEEN, Urine WBC 0-5 SEEN, Ur Squamous Epith Cells 0-5 SEEN, Urine Bacteria 1+, Urine Mucus 0 SEEN Imaging Radiology Impression Abdomen/Pelvis CT 12/13/23 14:13 IMPRESSION: Gallbladder is distended with dilated intrahepatic biliary ducts as well as dilated common bile duct down to the level of the ampulla of Vater. Correlation with ultrasound is recommended for further evaluation. A lesion in the region of the ampulla of Vater should be removed. Electronically Signed: Ryder Diamond MD at 14:54 EDT , Gallbladder Ultrasound 12/13/23 15:42 IMPRESSION: Cholelithiasis with borderline gallbladder wall thickness. Dilated common bile duct. Positive sonographic Germain''s sign. Electronically Signed: Dontrell Alcala DO at 18:28 EDT , Assessment & Plan Assessment/Plan (1) Elevated liver enzymes: (2) Biliary obstruction: (3) Abdominal pain: QUALIFIERS: Abdominal location: epigastric Qualified Code(s): R10.13 - Epigastric pain PLAN: Plan Very pleasant 33-year-old with no significant past medical history presents with abdominal pain : 1. Cholestatic hepatitis with jaundice likely secondary to choledocholithiasis causing significant hyperbilirubinemia and transaminitis along with increased LFTs. Recommend Zosyn therapy and ERCP because she had fever and severely obstructive jaundice. Abdomen and pelvis CT was independently interpreted. Results are : Agrees with delayed interpretation 2. Cholecystitis. She does not have any stones in her gallbladder but I think she should be seen for cholecystectomy. Charges/Coding Visit Charges Inpatient E&M: 06045 Init Hosp L3
[2023-12-13] MEDS: Piperacil/Tazobactam 3.375 GM in 0.9% Normal Saline (50mL MB+) 50 ML IV (21:59)
[2023-12-13] MEDS: HYDROmorphone 0.5 MG/0.5 ML SYRINGE IV (22:24)
[2023-12-14] VITALS (12 sets, daily range): BP systolic 106–149; BP diastolic 66–92; PULSE 6–110; RESP 16–18; TEMP 36.2–37.1; O2SAT 97–100; BMI 28.9
[2023-12-14] MEDS: 0.9% Normal Saline (1000mL) 1,000 ML 75 ML IV (04:44)
[2023-12-14 06:26] LABS: Absolute Lymphocyte Count 1.28 X10^3/uL (0.83-4.51); Absolute Neutrophil Count 4.3 X10^3/uL (2.0-7.7); Basophil# 0.03 X10^3/uL; Basophil% 0.5 % (0-1); Eosinophil# 0.09 X10^3/uL; Eosinophils% 1.4 % (0-5); Hematocrit 35.1 % (37-47); Hemoglobin 11.8 g/dL (12.0-15.0); Lymphocyte # 1.28 X10^3/ul (0.83-4.51); Lymphocyte % 19.4 % (19-41); Mean Corp Hgb Conc 33.6 g/dL (32-36); Mean Corpuscular Hgb 30.7 pg (27.0-32.0); Mean Corpuscular Volume 91.4 fL (81-99); Mean Platelet Vol. 10.4 fl (6.2-12.0); Monocyte# 0.88 X10^3/uL; Monocyte% 13.3 % (0-10); NRBC Flagged by Analyzer 0 % (0-5); Neutrophil % 64.9 % (47-70); Platelet Count 364 K/mm3 (150-450); RBC Distribution Width CV 11.9 % (11.6-14.6); RBC Distribution Width SD 39.8 fl (35.1-43.9); Red Blood Count 3.84 M/mm3 (4.2-5.4); White Blood Count 6.6 K/mm3 (4.4-11.0)
[2023-12-14 07:22] LABS: ALB/GLOB Ratio 0.9 RATIO (0.9-2.4); AST(SGOT) 427 U/L (15-37); Alanine Aminotransfer ALT/SGPT 573 U/L (13-56); Albumin, Serum 3.5 g/dL (3.2-5.0); Alkaline Phosphatase 235 U/L (45-117); Anion Gap 8 (5-15); BUN 8 mg/dL (7-18); BUN/Creat Ratio 12.4 RATIO (10-20); Calcium,Total 9.4 mg/dL (8.5-10.1); Chloride 102 mmol/L (98-107); Creatinine, Serum 0.64 mg/dL (0.55-1.02); EST Glomerular Filtration Rate 113 mL/min (>60); Est Glom Filt Rate - Afr Amer 136 mL/min (>60); Estimated Creatinine Clearance 106.88 ml/min; Globulin 3.8 g/dL (2.2-4.2); Glucose 97 mg/dL (74-106); Potassium 3.6 mmol/L (3.5-5.1); Protein, Total 7.3 g/dL (6.4-8.2); Sodium Level 137 mmol/L (136-145)
--- NOTE | 2023-12-14 08:18 | EX.PCM.CON.S ---
Assessment & Plan Assessment/Plan (1) Biliary obstruction: PLAN: Patient has biliary obstruction likely due to choledocholithiasis. She is having ERCP today. Dr. Pitt plans on placing a stent. This should preclude any further blockage in the interim and I will plan to remove her gallbladder next week. I discussed the procedure in detail with the patient. I discussed the risks, benefits, and alternatives of the procedure. I discussed the risks including but not limited to bleeding, infection, injury to surrounding organs such as the liver, bile duct, bowels. I did discuss the possibility of having to convert to an open procedure as well as the possibility that if any injuries occurred this may necessitate further surgery at a tertiary care center. Juan Pablo Chawla MD Pager: [facility] [address] [place] [address] [address] [place] [phone] Office: HPI Consult Data Date of Consult: 12/14/23 HPI Narrative HPI Narrative: jorge SMITH a 33 F who presents with fever and epigastric pain radiating to the back. Patient was having nausea and vomiting as well. [facility] Medical History Gastric ulcer Medical History no medical history Home Medications ?Medication ?Instructions ?Recorded ?Last Taken ?Type omeprazole 20 mg capsule,delayed 20 mg PO DAILY #30 CAPSULES 08/02/23 12/13/23 Rx release norethin-ethinyl estradiol-iron 1 tab PO QDAY 12/13/23 12/12/23 History 0.8 mg-25 mcg(24)/75 mg(4) chew tablet ondansetron 8 mg disintegrating 8 mg PO Q8H PRN nausea 12/13/23 12/12/23 History tablet Allergy/AdvReac Type Severity Reaction Status Date / Time No Known Allergies Allergy Verified 12/13/23 13:59 Family History Other Hyperlipidemia Hypertension Surgical History no surgical history Social History Smoking Status: Never smoker alcohol intake: current alcohol intake frequency: a few times a week substance use type: does not use frequency: 1-2 times per week ROS Constitutional Constitutional: Reports anorexia and fever(s); Denies chills or fatigue Eyes Eyes: Denies blurry vision ENT HEENT: Denies abnormal hearing or neck pain Cardiovascular Cardiovascular: Denies chest pain Respiratory/Chest Respiratory/Chest: Denies cough or dyspnea Gastrointestinal Gastrointestinal: Reports abdominal pain, nausea and vomiting; Denies diarrhea or dysphagia Genitourinary Genitourinary: Denies change in urinary stream Musculoskeletal Musculoskeletal: Denies abnormal gait Integumentary Integumentary: Denies jaundice Neurologic Neurologic: Denies abnormal gait Psychiatric Psychiatric: Denies anxiety Endocrine Endocrinology: Denies flushing Hematologic/Lymphatic Hematologic/Lymphatic: Denies easy bleeding Physical Exam Const alert and oriented x3 HEENT normocephalic Eyes PERRL Resp normal respiratory effort Cardio Rate: regular rate Rhythm: regular rhythm GI soft to palpation and non-distended Palpation: tender Extremity normal to inspection Lab / Micro Data 12/14/23 06:15 12/14/23 06:15 Labs: Laboratory Results - last 24 hr 12/13/23 14:11: WBC 9.1, RBC 4.19 L, Hgb 13.1, Hct 39.3, MCV 93.8, MCH 31.3, MCHC 33.3, RDW Std Deviation 41.0, RDW Coeff of Remigio 11.9, Plt Count 416, MPV 10.8, Immature Gran % (Auto) 0.400, Neut % (Auto) 73.2 H, Lymph % (Auto) 16.1 L, [place] % (Auto) 9.8, Eos % (Auto) 0.3, Baso % (Auto) 0.2, Absolute Neuts (auto) 6.6, Absolute Lymphs (auto) 1.46, Nucleated RBC % 0, Sodium 135 L, Potassium 3.8, Chloride 98, Carbon Dioxide 26.0, Anion Gap 11, BUN 8, Creatinine 0.71, Estim Creat Clear Calc 97.32, Est GFR (MDRD) Af Amer 122, Est GFR (MDRD) Non-Af 101, BUN/Creatinine Ratio 11.3, Glucose 80, Calcium 10.1, Total Bilirubin 9.70 H, AST 318 H, ALT 445 H, Alkaline Phosphatase 253 H, Total Protein 8.5 H, Albumin 4.1, Globulin 4.4 H, Albumin/Globulin Ratio 0.9, Lipase 70, Serum , Qual NEGATIVE 12/13/23 14:34: Urine Color Yellow, Urine Clarity Sl. Cloudy, Urine pH 6.5, Ur Specific [place] 1.015, Urine Protein 30 H, Urine Glucose (UA) Normal, Urine Ketones 150 A*, Urine Occult Blood Negative, Urine Nitrite Positive H, Urine Bilirubin 6 H, Urine Urobilinogen 8 H, Ur Leukocyte Esterase 25 H, Urine RBC 0 SEEN, Urine WBC 0-5 SEEN, Ur Squamous Epith Cells 0-5 SEEN, Urine Bacteria 1+, Urine Mucus 0 SEEN 12/14/23 06:15: WBC 6.6, RBC 3.84 L, Hgb 11.8 L, Hct 35.1 L, MCV 91.4, MCH 30.7, MCHC 33.6, RDW Std Deviation 39.8, RDW Coeff of Remigio 11.9, Plt Count 364, MPV 10.4, Immature Gran % (Auto) 0.500, Neut % (Auto) 64.9, Lymph % (Auto) 19.4, [place] % (Auto) 13.3 H, Eos % (Auto) 1.4, Baso % (Auto) 0.5, Absolute Neuts (auto) 4.3, Absolute Lymphs (auto) 1.28, Nucleated RBC % 0, Sodium 137, Potassium 3.6, Chloride 102, Carbon Dioxide 27.0, Anion Gap 8, BUN 8, Creatinine 0.64, Estim Creat Clear Calc 106.88, Est GFR (MDRD) Af Amer 136, Est GFR (MDRD) Non-Af 113, BUN/Creatinine Ratio 12.4, Glucose 97, Calcium 9.4, Total Bilirubin 8.30 H, AST 427 H, ALT 573 H, Alkaline Phosphatase 235 H, Total Protein 7.3, Albumin 3.5, Globulin 3.8, Albumin/Globulin Ratio 0.9 Imaging Radiology Impression Abdomen/Pelvis CT 12/13/23 14:13 IMPRESSION: Gallbladder is distended with dilated intrahepatic biliary ducts as well as dilated common bile duct down to the level of the ampulla of Vater. Correlation with ultrasound is recommended for further evaluation. A lesion in the region of the ampulla of Vater should be removed. Electronically Signed: Ryder Diamond MD at 14:54 EDT , Gallbladder Ultrasound 12/13/23 15:42 IMPRESSION: Cholelithiasis with borderline gallbladder wall thickness. Dilated common bile duct. Positive sonographic Germain''s sign. Electronically Signed: Dontrell Alcala DO at 18:28 EDT ,
[2023-12-14 08:40] LABS: Lipase 89 U/L (13-75)
--- NOTE | 2023-12-14 10:00 | PN.HOSP_ITS ---
Subjective Subjective Doing well, no major issues overnight, continues to have a little bit of central abdominal pain Objective Data Objective Data Vital Signs: Vital Signs Temp Pulse Resp BP Pulse Ox O2 Del Method 97.5 F L 82 16 129/81 H 97 Room Air 12/14/23 07:58 12/14/23 07:58 12/14/23 07:58 12/14/23 07:58 12/14/23 09:20 12/14/23 09:20 Oxygen Delivery Method Room Air Weight: 148 lb Body Mass Index (BMI) 28.9 Intake & Output: Intake and Output for Last 24 Hours 12/13/23 12/14/23 12/15/23 03:59 03:59 03:59 Intake Total 110 / 110 50 / 50 Balance 110 / 110 50 / 50 Lab / Micro Data 12/14/23 06:15 12/14/23 06:15 Labs: Laboratory Results - last 24 hr 12/13/23 14:11: WBC 9.1, RBC 4.19 L, Hgb 13.1, Hct 39.3, MCV 93.8, MCH 31.3, MCHC 33.3, RDW Std Deviation 41.0, RDW Coeff of Remigio 11.9, Plt Count 416, MPV 10.8, Immature Gran % (Auto) 0.400, Neut % (Auto) 73.2 H, Lymph % (Auto) 16.1 L, Calloway % (Auto) 9.8, Eos % (Auto) 0.3, Baso % (Auto) 0.2, Absolute Neuts (auto) 6.6, Absolute Lymphs (auto) 1.46, Nucleated RBC % 0, Sodium 135 L, Potassium 3.8, Chloride 98, Carbon Dioxide 26.0, Anion Gap 11, BUN 8, Creatinine 0.71, Estim Creat Clear Calc 97.32, Est GFR (MDRD) Af Amer 122, Est GFR (MDRD) Non-Af 101, BUN/Creatinine Ratio 11.3, Glucose 80, Calcium 10.1, Total Bilirubin 9.70 H , AST 318 H, ALT 445 H, Alkaline Phosphatase 253 H, Total Protein 8.5 H, Albumin 4.1, Globulin 4.4 H, Albumin/Globulin Ratio 0.9, Lipase 70, Serum , Qual NEGATIVE 12/13/23 14:34: Urine Color Yellow, Urine Clarity Sl. Cloudy, Urine pH 6.5, Ur Specific [place] 1.015, Urine Protein 30 H, Urine Glucose (UA) Normal, Urine Ketones 150 A*, Urine Occult Blood Negative, Urine Nitrite Positive H, Urine Bilirubin 6 H, Urine Urobilinogen 8 H, Ur Leukocyte Esterase 25 H, Urine RBC 0 SEEN, Urine WBC 0-5 SEEN, Ur Squamous Epith Cells 0-5 SEEN, Urine Bacteria 1+, Urine Mucus 0 SEEN 12/14/23 06:15: WBC 6.6, RBC 3.84 L, Hgb 11.8 L, Hct 35.1 L, MCV 91.4, MCH 30.7, MCHC 33.6, RDW Std Deviation 39.8, RDW Coeff of Remigio 11.9, Plt Count 364, MPV 10.4, Immature Gran % (Auto) 0.500, Neut % (Auto) 64.9, Lymph % (Auto) 19.4, M rene % (Auto) 13.3 H, Eos % (Auto) 1.4, Baso % (Auto) 0.5, Absolute Neuts (auto) 4.3, Absolute Lymphs (auto) 1.28, Nucleated RBC % 0, Sodium 137, Potassium 3.6, Chloride 102, Carbon Dioxide 27.0, Anion Gap 8, BUN 8, Creatinine 0.64, Estim Creat Clear Calc 106.88, Est GFR (MDRD) Af Amer 136, Est GFR (MDRD) Non-Af 113, BUN/Creatinine Ratio 12.4, Glucose 97, Calcium 9.4, Total Bilirubin 8.30 H, AST 427 H, ALT 573 H, Alkaline Phosphatase 235 H, Total Protein 7.3, Albumin 3.5, Globulin 3.8, Albumin/Globulin Ratio 0.9, Lipase 89 H Radiography Diagnostic Testing: Radiology Impression Abdomen/Pelvis CT 12/13/23 14:13 IMPRESSION: Gallbladder is distended with dilated intrahepatic biliary ducts as well as dilated common bile duct down to the level of the ampulla of Vater. Correlation with ultrasound is recommended for further evaluation. A lesion in the region of the ampulla of Vater should be removed. Electronically Signed: Ryder Diamond MD at 14:54 EDT , Gallbladder Ultrasound 12/13/23 15:42 IMPRESSION: Cholelithiasis with borderline gallbladder wall thickness. Dilated common bile duct. Positive sonographic Germain''s sign. Electronically Signed: Dontrell Alcala DO at 18:28 EDT Reading Location ID and State: [address] [place] [address] Tel [phone], Service support , Physical Exam Narrative General: Alert, Oriented x3, Cooperative, No apparent distress HEENT: Atraumatic, PERRLA, EOMI, Normocephalic, mild scleral icterus Oral: Moist Mucosa Neck: Supple, No JVD Lungs: Clear to auscultation, Normal air movement, No rhonchi, No wheeze, No rales Cardiovascular: Regular rate, Regular Rhythm, Normal S1, Normal S2, No murmurs Abdomen: Soft, minimally tender, Non-Distended, No Hepato-splenomegaly Extremities: No edema, Capillary Refill Less than 3 Seconds Skin: No rashes, No breakdown, jaundice Musculoskeletal: No Tenderness to Palpation of Joints or Extremities Neurological: No focal neurological deficits, Motor Exam 5/5 strength throughout, Sensory exam intact to light touch and pain Psych/Mental Status: Normal Affect, Appropriate Assessment & Plan Assessment/Plan (1) Elevated liver enzymes: (2) Biliary obstruction: (3) Abdominal pain: QUALIFIERS: Abdominal location: epigastric Qualified Code(s): R 10.13 - Epigastric pain PLAN: Plan 1. Choledocholithiasis with cholelithiasis and borderline gallbladder with hyperbilirubinemia/GERD ? Plan for ERCP today with stent ? Delayed cholecystectomy next week by general surgery ? If she tolerates the procedure well and is able to advance diet can potentially DC later this afternoon ? Continue with n.p.o. until ERCP ? Continue with PPI DVT: SCDs Charges/Coding Visit Charges Inpatient E&M: 26568 Subs Hosp L2
--- NOTE | 2023-12-14 10:35 | CASEMGMT ---
ALESHA BEJARANO Assessment: Face to Face with pt for initial transition planning/care coordination assessment. ALESHA BEJARANO introduced self and role at [facility], pt voices understanding and consents to assessment. Pt is A&O x4 and answers all questions appropriately at this time. Pt sitting up in bed in no distress with at bedside and mother came in in middle of assessment. Pt agreeable to continue with visitors. Care providers, pharmacy, and demographics verified/updated. Admitting Dx: choledocholithiasis Strata Score: 2 PCP:Linda Walden Specialists:Denies Preferred Pharmacy:[facility] Insurance: MMO Prescription Benefit: yes LNOK: Antonio Loo, ; Hillary Muñiz, mother Living Arrangements: Pt lives with and two children in a two story home with 4 steps to enter. Pt reports she is I in ADLs and denies concerns at home. Transportation: Pt drives self and denies concerns with transportation. DME:Denies HHC/SNF: Denies hx of Pt states no concerns with going home at time of dc. Pt states no further concerns/needs. CM to follow. Advised pt to ask CM if any further question/concerns/needs arise, voices understanding. Pt Goal: Home Plan: Home Jing EDUARDO CM
[2023-12-14] MEDS: Piperacil/Tazobactam 3.375 GM in 0.9% Normal Saline (50mL MB+) 50 ML IV (10:39)
--- NOTE | 2023-12-14 11:22 | EKG12_ITS ---
Test Reason : PREOP Blood Pressure : / mmHG Vent. Rate : 080 BPM Atrial Rate : 080 BPM P-R Int : 154 ms QRS Dur : 072 ms QT Int : 360 ms P-R-T Axes : 015 032 033 degrees QTc Int : 415 ms Normal sinus rhythm Normal ECG When compared with ECG of 02-AUG-2023 13:04, No significant change was found Confirmed by Jared Noel ([id number]), supervising film or videotape editor SLY WAHL ([id number]) on 12/20/2023 2:03:26 PM Referred By: Landen Pelaez Confirmed By:Jared Noel
--- NOTE | 2023-12-14 11:53 | PCM.PRE.AN2 ---
ASA Classification* ASA Classification ASA Classification: 2 and E Assessment & Plan Anesthesia* Anesthesia Assessment Anesthesia Assessment: Discussed sedation and/or anesthesia options, risks, benefits, and alternatives with patient/parents/legal guardian/POA. Questions invited. The patient/parents/legal guardian/POA seems to understand and agrees to proceed with anesthesia plan. Reviewed the physical assessment, medical history, allergy history and patient home medications list prior to surgery/procedure/anesthetic and documented any changes. Performed airway and anesthesia risk assessments. Anesthesia Type Anesthesia Type: General History Source History Obtained from:: Patient and Chart Anesthesia Focused Assessment* Temperature: 98.2 F Pulse Rate: 90 Blood Pressure: 149/92 Respiratory Rate: 18 Pulse Ox: 98 Airway Assessment Mouth opens: >3 cm Mallampati Score: II Teeth Condition: Intact Neck Range of motion (ROM): Full ROM Focused Labs Anesthesia Preop lab: CBC WBC 6.6 K/mm3 (4.4-11.0) 12/14/23 06:15 RBC 3.84 M/mm3 (4.2-5.4) L 12/14/23 06:15 Hgb 11.8 g/dL (12.0-15.0) L 12/14/23 06:15 Hct 35.1 % (37-47) L 12/14/23 06:15 Plt Count 364 K/mm3 (150-450) 12/14/23 06:15 CHEMISTRY Potassium 3.6 mmol/L (3.5-5.1) 12/14/23 06:15 Sodium 137 mmol/L (136-145) 12/14/23 06:15 BUN 8 mg/dL (7-18) 12/14/23 06:15 Creatinine 0.64 mg/dL (0.55-1.02) 12/14/23 06:15 Glucose 97 mg/dL (74-106) 12/14/23 06:15 TSH 1.77 uIU/mL (0.358-3.74) 07/28/22 13:26 COAG Pre-Assessment Diagnosis/Proposed Procedure Planned Operative Procedure(s): ERCP Anesthesia History 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 When Was Last Pacemaker Check QUESTION #4 FULL TEXT: You/Your Family Experience fever (hyperthermia) with Anesthesia Last Oral Intake Last Oral intake: Last Oral Intake NPO since 00:00 12/14/23 11:13 Meds taken in AM with sips of water? 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 employee: PONV - office employee Female HX of Motion Sickness HX of N/V After Surgery Non-Smoker Duration of Surgery greater than 60 minutes Number of Risk Factors PONV Score Height & Weight Height & Weight: Anesthesia: Height & Weight Height 5 ft 12/14/23 11:13 Weight: 67.132 kg 12/14/23 11:13 Body Mass Index (BMI) 28.9 12/14/23 11:13 Respiratory Assessment Respiratory Assessment - office employee: Respiratory Tract Infection Hx - office employee Hx Respiratory Tract Infection No 12/14/23 04:53 STOP Sleep Apnea STOP Sleep Apnea - office employee: STOP Sleep Apnea - office employee Hx Hypertension No 12/13/23 16:23 Hx Sleep Apnea No 12/13/23 16:23 CPAP BIPAP Do you snore loudly (louder No 12/13/23 16:23 than talking or can be heard Do you often feel tired/ Yes 12/13/23 16:23 fatigued/ sleepy during daytime? Has anyone observed you stop No 12/13/23 16:23 breathing during sleep? STOP Results Negative 12/13/23 16:23 QUESTION #5 FULL TEXT : Do you snore loudly (louder than talking or can be heard through closed doors)? 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 Specify any problems Hx of Preganancy in last 3 No 12/13/23 16:23 Months Nurse Filling Out Transfusion JOSE ALFREDO 12/13/23 16:23 & Questions: Date: 12/13/23 12/13/23 16:23 Time: 16:30 12/13/23 16:23 Patient unable to answer at this time (ie. confused, unrespo /Reproduction History /Reproductive History - office employee: /Reproductive Hx- office employee Hx Now No 12/14/23 04:53 Gestational Age (in weeks): EDC: Hx Hx Para Hx Section SAB No 12/14/23 04:53 Active Medications Active Medications: Current Medications Generic Name Dose Route Start Last Admin Trade Name Freq PRN Reason Stop Dose Admin Clarify Med Order 0 each 12/13/23 23:00 12/13/23 21:23 Clarify Order NOTE Not Given CLARIFY POWER Hydromorphone HCl 0.5 mg 12/13/23 17:19 12/13/23 22:24 Hydromorphone 0.5 Mg/0.5 Ml Syringe IV 0.5 mg Q3H PRN PRN Administration Pain Score 4-10 Piperacillin Sod/Tazobactam 50 mls @ 12.5 mls/hr 12/13/23 22:00 12/14/23 10:39 Sod 3.375 gm/ Sodium Chloride IV 12.5 mls/hr Q12 POWER Administration Melatonin 3 mg 12/13/23 17:19 Melatonin 3 Mg Tablet PO QHS PRN PRN INSOMNIA Non-Formulary Medication 1 tablet 12/13/23 17:19 Noreth-Ethinyl Estradiol-Iron PO QDAY POWER Ondansetron HCl 4 mg 12/13/23 17:19 12/13/23 22:24 Ondansetron 4 Mg/2 Ml Vial IV 4 mg Q8H PRN PRN Administration NAUSEA/VOMITING Sodium Chloride 10 - 40 ml 12/13/23 16:33 0.9% Saline Lock 10 Ml Syringe IV UD PRN SALINE FLUSH PFSH Medical History Gastric ulcer Medical History no medical history Home Medications ?Medication ?Instructions ?Recorded ?Last Taken ?Type omeprazole 20 mg capsule,delayed 20 mg PO DAILY #30 CAPSULES 08/02/23 12/13/23 Rx release norethin-ethinyl estradiol-iron 1 tab PO QDAY 12/13/23 12/12/23 History 0.8 mg-25 mcg(24)/75 mg(4) chew tablet ondansetron 8 mg disintegrating 8 mg PO Q8H PRN nausea 12/13/23 12/12/23 History tablet Allergy/AdvReac Type Severity Reaction Status Date / Time No Known Allergies Allergy Verified 12/13/23 13:59 Family History Other Hyperlipidemia Hypertension Surgical History no surgical history Social History Smoking Status: Never smoker alcohol intake: current alcohol intake frequency: a few times a week substance use type: does not use frequency: 1-2 times per week Review of Systems (Anesthesia) ROS Narrative System reviewed and no additional complaints, except as documented.
--- NOTE | 2023-12-14 12:35 | RAD_ITS ---
EXAM: FL FLUOROSCOPY < 1 HOUR CLINICAL INDICATION: ERCP TECHNIQUE: 9 images fluoroscopic spot images were obtained. Fluoroscopic guidance was provided. COMPARISON: Abdominal ultrasound 12/13/2023. FINDINGS: Contrast injected into the biliary tree via cannulation of the common bile duct during ERCP. Balloon catheter utilized for removal of any common bile duct stones. Ultimately endobiliary stent catheter was left in place. See operative note for additional information. Total radiation dose of 14.34 mGy. A total of 111 seconds of fluoroscopy utilized. RAD/ERCP Biliary/Pancreas IMPRESSION: As above. Electronically Signed: Cheng Barnett MD at 14:04 EDT ,
--- NOTE | 2023-12-14 13:04 | OP.ERCP_ITS ---
Patient Name: Libby Cinda Procedure Date: 12/14/2023 11:26 AM Date of : 1990 Age: 33 Procedure: ERCP Indications: Abdominal pain of suspected biliary origin, Jaundice, Elevated liver enzymes Providers: Pete Ptit DO Referring MD: David Pelaez MD Medicines: Monitored Anesthesia Care Patient Profile: This is a 33 year old female. Refer to note in patient chart for documentation of history and physical. Patient has symptoms of acute abdominal cramping, acute right upper quadrant abdominal pain and acute jaundice. Complications: No immediate complications. Procedure: Pre-Anesthesia Assessment: - Prior to the procedure, a History and Physical was performed, and patient medications and allergies were reviewed. The patient is competent. The risks and benefits of the procedure and the sedation options and risks were discussed with the patient. All questions were answered and informed consent was obtained. Patient identification and proposed procedure were verified by the physician in the pre-procedure area. Mental Status Examination: alert and oriented. Airway Examination: normal oropharyngeal airway and neck mobility. Respiratory Examination: clear to auscultation. CV Examination: normal. Prophylactic Antibiotics: The patient does not require prophylactic antibiotics. Prior Anticoagulants: The patient has taken no anticoagulant or antiplatelet agents except for NSAID medication. ASA Grade Assessment: II - A patient with mild systemic disease. After reviewing the risks and benefits, the patient was deemed in satisfactory condition to undergo the procedure. The anesthesia plan was to use general anesthesia. Immediately prior to administration of medications, the patient was re-assessed for adequacy to receive sedatives. The heart rate, respiratory rate, oxygen saturations, blood pressure, adequacy of pulmonary ventilation, and response to care were monitored throughout the procedure. The physical status of the patient was re-assessed after the procedure. After obtaining informed consent, the scope was passed under direct vision. Throughout the procedure, the patient's blood pressure, pulse, and oxygen saturations were monitored continuously. The Duodenoscope was introduced through the mouth, and advanced to the duodenum and used to inject contrast into the bile duct and ventral pancreatic duct. The ERCP was accomplished without difficulty. The patient tolerated the procedure well. Scope In: 12:29:30 PM Scope Out: 12:46:48 PM Total Procedure Duration Time 0 hours 17 minutes 18 seconds Findings: The neuropsychiatric aide film was normal. The esophagus was successfully intubated under direct vision. The scope was advanced to a normal major papilla in the descending duodenum without detailed examination of the pharynx, larynx and associated structures, and upper GI tract. The upper GI tract was grossly normal. A long 0.025 inch Jagwire was passed into the biliary tree. The short-nosed traction sphincterotome was passed over the guidewire and the bile duct was then deeply cannulated. Contrast was injected. I personally interpreted the pancreatic duct images. There was brisk flow of contrast through the ducts. Image quality was adequate. Contrast extended to the pancreatic duct. Opacification of the entire opacified area was successful. The maximum diameter of the ducts was 2 mm. The biliary pancreatic junction contained a single localized stenosis 2 mm in length. A 5 mm ventral pancreatic sphincterotomy was made with a traction (standard) sphincterotome using ERBE electrocautery. There was no post-sphincterotomy bleeding. To find object(s) the ventral pancreatic duct was swept with a 6 mm balloon starting at the pancreatic duct in the body of the pancreas. Nothing was found. A long 0.025 inch Jagwire was passed into the biliary tree. The short-nosed traction sphincterotome was passed over the guidewire and the bile duct was then deeply cannulated. Contrast was injected. The lower third of the main bile duct was completely obstructed by what appeared to be a stone. Opacification of the entire biliary tree was successful. The maximum diameter of the ducts was 9 mm. The lower third of the main bile duct contained one stone, which was 6 mm in diameter. The entire biliary tree was diffusely dilated, with a stone causing an obstruction. The largest diameter was 10 mm. A 5 mm biliary sphincterotomy was made with a monofilament traction (standard) sphincterotome using ERBE electrocautery. There was no post-sphincterotomy bleeding. The biliary tree was swept with a 12 mm balloon starting at the bifurcation, left main hepatic duct and right main hepatic duct. One stone was removed. No stones remained. One 10 Fr by 5 cm temporary stent was placed 5 cm into the common bile duct. Bile flowed through the stent. The stent was in good position. Impression: - A single localized biliary stricture was found. The stricture was inflammatory. - The entire biliary tree was dilated, with a stone causing an obstruction. - Choledocholithiasis with an obstruction was found. Complete removal was accomplished by biliary sphincterotomy and balloon extraction. - A pancreatic sphincterotomy was performed. - The ventral pancreatic duct was swept and nothing was found. - A biliary sphincterotomy was performed. - The biliary tree was swept. - One temporary stent was placed into the common bile duct. Procedure Code(s): --- Professional --- 24994, Endoscopic retrograde cholangiopancreatography (ERCP); with placement of endoscopic stent into biliary or pancreatic duct, including pre- and post-dilation and guide wire passage, when performed, including sphincterotomy, when performed, each stent 36270, 51, Endoscopic retrograde cholangiopancreatography (ERCP); with removal of calculi/debris from biliary/pancreatic duct(s) 23177, 59, Endoscopic retrograde cholangiopancreatography (ERCP); with sphincterotomy/papillotomy 66506, 26, Endoscopic catheterization of the pancreatic ductal system, radiological supervision and interpretation CPT copyright 2021 [employer]. All rights reserved. The codes documented in this report are preliminary and upon manager lvn review may be revised to meet current compliance requirements. Pete Pitt DO 12/14/2023 1:04:21 PM This report has been signed electronically. Number of Addenda: 0 Note Initiated On: 12/14/2023 11:26 AM
--- NOTE | 2023-12-14 13:04 | OP.CCLET_ITS ---
12/14/2023 Linda Walden Md Re : ERCP procedure for June [place]s [place] This procedure was performed on December. My impressions and recommendations are as follows: Impressions : - A single localized biliary stricture was found. The stricture was inflammatory. - The entire biliary tree was dilated, with a stone causing an obstruction. - Choledocholithiasis with an obstruction was found. Complete removal was accomplished by biliary sphincterotomy and balloon extraction. - A pancreatic sphincterotomy was performed. - The ventral pancreatic duct was swept and nothing was found. - A biliary sphincterotomy was performed. - The biliary tree was swept. - One temporary stent was placed into the common bile duct. Recommendations : My findings are described in the full procedure note, which is enclosed. If I can be of further assistance, please feel free to contact me at . Sincerely, Pete Pitt, 12/14/2023 1:04:21 PM This report has been signed electronically.
--- NOTE | 2023-12-14 13:04 | PCM.POST.ANE ---
Anesthesia: Postop Eval I Current Vital Signs Temperature: 97.3 F Pulse Rate: 104 Blood Pressure: 113/76 Respiratory Rate: 16 Pulse Ox: 99 Oxygen Delivery Method: Room Air Assessment Airway patent: Yes Spontaneous unlabored respirations: Yes Mental status: Awake and Calm nausea: No Vomiting: No Anesthesia Complication: No Fluid Hydration Crystalloid volume administer (ml): 700 Total IV fluid infused: 700 Progress Note Anesthesia document: Postop Eval 1 completed: Yes
--- NOTE | 2023-12-14 13:57 | PCM.POSTANE2 ---
Anesthesia Postop Eval I Sum Postop Eval Completion status Anesthesia document: Postop Eval 1 completed: Yes Anesthesia Postop Eval I Summary Anesthesia Postop Eval I Summary: Anesthesia Postop Eval I: Assessment Summary Airway patent Yes 12/14/23 13:05 [email or web address] Spontaneous unlabored Yes 12/14/23 13:05 [email or web address] respirations Mental status Awake,Calm 12/14/23 13:05 [email or web address] nausea No 12/14/23 13:05 [email or web address] Vomiting No 12/14/23 13:05 [email or web address] Anesthesia Postop Eval I: Fluid Summary Crystalloid volume administer 700 12/14/23 13:05 [email or web address] (ml) Colloids volume administered ( ml) Blood Product volume administered (ml) Total IV fluid infused 700 12/14/23 13:05 [email or web address] Anesthesia Postop Eval I: Summary Notes Anesthesia Complication No 12/14/23 13:05 [email or web address] Anesthesia Complication Comment: Post-operative progress note Anesthesia: Postop Eval II Evaluation Mental status: Awake Pain Level: 0 nausea: No Vomiting: No
--- NOTE | 2023-12-14 15:47 | DCINST_ITS ---
Discharge Instructions Diet Discharge Diet: No restrictions Activity Discharge Activity: Return to Normal Activity Dressing / Incision Call your doctor if you observe: Fever of 101 or Higher, Shortness of breath, Dizziness, Fainting spells, Swelling in the ankles, Chest pain and Increased palpitations (irregular heartbeat) Follow Up Care Test Results: Test results from this visit will be discussed in further detail at your follow- up appointment, if applicable. Discharge Plan Admission Admit Date/Time: 12/13/23 15:40 Attending Provider: Yang Fink Primary Care Provider: Linda Walden Consulting Providers: Juan Pablo Chawla; Mike Morley Instructions Additional Instructions / Restrictions: Contact your PCP foot to evaluate your liver functions as well as her bilirubin with a CMP in the next couple of days. Discharge Orders/Prescriptions Prescriptions: New amoxicillin-pot clavulanate 875-125 mg tablet 1 tab PO BID Qty: 14 0RF Continued noreth-ethinyl estradiol-iron 0.8mg-25mcg(24) and 75 mg (4) tablet,chewable 1 tab PO QDAY ondansetron 8 mg tablet,disintegrating 8 mg PO Q8H PRN (Reason: nausea) 3 Days Qty: 10 0RF omeprazole 20 mg capsule,delayed release(DR/EC) 20 mg PO DAILY Qty: 30 0RF Referrals / Follow Up: Juan Pablo Chalwa MD [Med Staff - Active Staff] - 12/21/23 1:45 pm (For surgery) Linda Walden MD [Primary Care Provider] - Within 1 Week Naman Wilkerson MD [Med Staff - Active Staff] - Pete Pitt DO [Med Staff - Active Staff] - Within 3 Months (6 weeks) Disposition Disposition (needs filled in before D/C Order can be placed): Home, Self Care
--- NOTE | 2023-12-14 15:56 | DS.PCM_ITS ---
Providers Date of Admission: 12/13/23 Primary Care Physician: Linda Walden MD Consultations 12/13/23 17:19 Consult: Gastroenterology Routine Consulting Provider: [facility] Reason for Consult: Choledocholithiasis EMERGENT Consult: No Notified: Yes Date Notified: 12/13/23 Time Notified: 15:47 Method of Notification: ED Physician Initiated Consult: General Surgery Routine Consulting Provider: Juan Pablo Chawla Reason for Consult: Choledocholithiasis EMERGENT Consult: No Notified: Yes Date Notified: 12/13/23 Time Notified: 15:47 Method of Notification: ED Physician Initiated Reason For Visit: CHOLEDOCHOLITHIASIS Diagnosis Discharge Diagnosis (1) Elevated liver enzymes: Status: Acute Code(s): R74.8 - Abnormal levels of other serum enzymes (2) Biliary obstruction: Status: Acute Code(s): K83.1 - Obstruction of bile duct (3) Abdominal pain: Status: Acute Code(s): R10.9 - Unspecified abdominal pain Qualifiers: Abdominal location: epigastric Qualified Code(s): R10.13 - Epigastric pain Medications at Discharge Home Medications omeprazole 20 mg capsule,delayed release 20 mg PO DAILY #30 CAPSULES 08/02/23 norethin-ethinyl estradiol-iron 0.8 mg-25 mcg(24)/75 mg(4) chew tablet 1 tab PO QDAY 12/13/23 amoxicillin 875 mg-potassium clavulanate 125 mg tablet 1 tab PO BID #14 tabs 12/14/23 ondansetron 8 mg disintegrating tablet 8 mg PO Q8H PRN nausea 3 days #10 tabs 12/14/23 Hospital Course Operations ERCP Procedures None Summary of Care Provided Minutes Spent on Discharge: 33 Hospital Course: Per HPI: KENNETH SULEIMAN, jorge a 33 F with no significant medical history who presents emergency department with excruciating epigastric pain that radiated to her back. The pain is persistent. She describes the pain as sharp. The pain started about 2 weeks ago. Associated with her symptoms is nausea and vomiting. Also she reports a fever of 101 ?F at home. Patient was started on a PPI and Carafate at home. However his symptoms persisted. As her symptoms progressed she noticed yellowish discoloration of her skin in her eyes. Also her urine has been dark. Hospital Course: 1. Choledocholithiasis with cholelithiasis and borderline gallbladder with hyperbilirubinemia/GERD?33-year-old female presented to the hospital with several months of epigastric abdominal pain. Initially thought that it was GERD she was started on a PPI however she had some spiral icterus and jaundice and her bilirubin was elevated on evaluation in the ER here. She was found to have biliary dilatation on imaging and she had an ERCP today that demonstrated choledocholithiasis with inflammatory stricture. The ducts were swept and a stent was placed and she is feeling significantly better this afternoon. I discussed the case with gastroenterology who felt that she would be safe for discharge today, I discussed with her the plan for possible discharge today she expressed understanding of the risks and benefits to going home and would like to go home today. She will be given 7 days of Augmentin and she will follow-up on , 12/21/2023 for cholecystectomy. In the meantime I recommended she follow-up with her PCP in 3 to 5 days and obtain a CMP to monitor her bilirubin and her liver function test. Will provide her with some Zofran as well and I recommend probiotic on discharge given the antibiotics that she will be prescribed. Weight / BMI Weight Weight: 148 lb Body Mass Index (BMI) 28.9 ABG / Lab / Microbiology Data 12/14/23 06:15 12/14/23 06:15 Laboratory: Laboratory Results - last 24 hr 12/14/23 06:15: WBC 6.6, RBC 3.84 L, Hgb 11.8 L, Hct 35.1 L, MCV 91.4, MCH 30.7, MCHC 33.6, RDW Std Deviation 39.8, RDW Coeff of Remigio 11.9, Plt Count 364, MPV 10.4, Immature Gran % (Auto) 0.500, Neut % (Auto) 64.9, Lymph % (Auto) 19.4, M rene % (Auto) 13.3 H, Eos % (Auto) 1.4, Baso % (Auto) 0.5, Absolute Neuts (auto) 4.3, Absolute Lymphs (auto) 1.28, Nucleated RBC % 0, Sodium 137, Potassium 3.6, Chloride 102, Carbon Dioxide 27.0, Anion Gap 8, BUN 8, Creatinine 0.64, Estim Creat Clear Calc 106.88, Est GFR (MDRD) Af Amer 136, Est GFR (MDRD) Non-Af 113, BUN/Creatinine Ratio 12.4, Glucose 97, Calcium 9.4, Total Bilirubin 8.30 H, AST 427 H, ALT 573 H, Alkaline Phosphatase 235 H, Total Protein 7.3, Albumin 3.5, Globulin 3.8, Albumin/Globulin Ratio 0.9, Lipase 89 H Radiography Diagnostic Testing: Radiology Impression Gallbladder Ultrasound 12/13/23 15:42 IMPRESSION: Cholelithiasis with borderline gallbladder wall thickness. Dilated common bile duct. Positive sonographic Germain''s sign. Electronically Signed: Dontrell Alcala DO at 18:28 EDT , Endo Retro Cholangiopancreatogram 12/14/23 12:35 IMPRESSION: As above. Electronically Signed: Cheng Barnett MD at 14:04 EDT , D/C Instructions Discharge Diet: No restrictions Call your doctor if you observe: Fever of 101 or Higher, Shortness of breath, Dizziness, Fainting spells, Swelling in the ankles, Chest pain and Increased palpitations (irregular heartbeat) Meaningful Use Info Meaningful Use Meaningful Use Diagnoses (Choose all that apply): None applicable Ischemic Stroke Statin Dosing Therapy Reference: STATIN DOSE THERAPY REFERENCE: * Patients > 75 years receive moderate or high dose statin therapy. * Patients 75 years or YOUNGER should receive HIGH intensity statin dose unless contraindicated. You will be required to document reason for non-treatment if statin daily dose does not meet guidelines. HIGH DOSE STATIN THERAPY DAILY Atorvastatin > than or = to 40 mg Rosuvastatin > than or = to 20 mg Amlodipine + Atorvastatin > than or = to 2.5/40 mg Ezetimibe + Simvastatin 10/80 mg Simvastatin 80mg Discharge Plan Admission Admit Date/Time: 12/13/23 15:40 Attending Provider: Yang Fink Primary Care Provider: Linda Walden Consulting Providers: Juan Pablo Chawla; Mike Morley Instructions Additional Instructions / Restrictions: Contact your PCP foot to evaluate your liver functions as well as her bilirubin with a CMP in the next couple of days. Discharge Orders/Prescriptions Prescriptions: New amoxicillin-pot clavulanate 875-125 mg tablet 1 tab PO BID Qty: 14 0RF Continued noreth-ethinyl estradiol-iron 0.8mg-25mcg(24) and 75 mg (4) tablet,chewable 1 tab PO QDAY ondansetron 8 mg tablet,disintegrating 8 mg PO Q8H PRN (Reason: nausea) 3 Days Qty: 10 0RF omeprazole 20 mg capsule,delayed release(DR/EC) 20 mg PO DAILY Qty: 30 0RF Referrals / Follow Up: Juan Pablo Chawla MD [Med Staff - Active Staff] - 12/21/23 1:45 pm (For surgery) Linda Walden MD [Primary Care Provider] - Within 1 Week Naman Wilkerson MD [Med Staff - Active Staff] - Pete Pitt DO [Med Staff - Active Staff] - Within 3 Months (6 weeks) Disposition Disposition (needs filled in before D/C Order can be placed): Home, Self Care Charges/Coding Visit Charges Inpatient E&M: 15415 Disch Hosp >30min
== END 2023-12-14 16:40 | disposition home or self-care (01) | DRG 446 ==
LOC: ED 15:32 → MS3 15:51
PROVIDERS: Internal Medicine Gastroenterology; Surgery; Admitting Provider Hospitalist; Emergency Provider Emergency Medicine; PCP Family Medicine; Referring Provider Emergency Medicine; Visit Provider Family Medicine
PROC: 0FC98ZZ Extirpation of Matter from Common Bile Duct, Via Natural or Artificial Opening Endoscopic (ICD-10-PCS; CPT 43260; principal; 2023-12-14 11:10)
DX: K80.61 Calculus of gallbladder and bile duct with cholecystitis, unspecified, with obstruction (principal); K21.9 Gastro-esophageal reflux disease without esophagitis; K75.89 Other specified inflammatory liver diseases; Z79.899 Other long term (current) drug therapy
CPT/HCPCS: 36415; 74177; 74330; 76000; 76705; 80053; 81001; 83690; 84703; 85025; 93005; 97802; 99284; J7030; Q9967; A4216; J2405

== ENCOUNTER → 2023-12-15 | Outpatient (CLI) | payer OTHER, SELFPAY ==
[2023-12-15 16:28] LABS: ALB/GLOB Ratio 0.9 RATIO (0.9-2.4); AST(SGOT) 384 U/L (15-37); Alanine Aminotransfer ALT/SGPT 750 U/L (13-56); Albumin, Serum 3.4 g/dL (3.2-5.0); Alkaline Phosphatase 204 U/L (45-117); Anion Gap 5 (5-15); BUN 12 mg/dL (7-18); BUN/Creat Ratio 15.3 RATIO (10-20); Calcium,Total 9.2 mg/dL (8.5-10.1); Chloride 104 mmol/L (98-107); Creatinine, Serum 0.78 mg/dL (0.55-1.02); EST Glomerular Filtration Rate 90 mL/min (>60); Est Glom Filt Rate - Afr Amer 108 mL/min (>60); Globulin 3.9 g/dL (2.2-4.2); Glucose 103 mg/dL (74-106); Potassium 3.6 mmol/L (3.5-5.1); Protein, Total 7.3 g/dL (6.4-8.2); Sodium Level 138 mmol/L (136-145)
== END | disposition home or self-care (01) ==
LOC: LAB.FUTURE 15:53
PROVIDERS: PCP Family Medicine; Referring Provider Family Medicine; Visit Provider Family Medicine
DX: K80.50 Calculus of bile duct without cholangitis or cholecystitis without obstruction (principal)
CPT/HCPCS: 36415; 80053

== ENCOUNTER 2023-12-21 10:36 | Day surgery (SDC) | payer OTHER, SELFPAY ==
[2023-12-21] VITALS (9 sets, daily range): BP systolic 94–125; BP diastolic 59–85; PULSE 59–92; RESP 16–18; TEMP 36.2–37.5; O2SAT 97–100; BMI 28.8
--- NOTE | 2023-12-21 10:53 | EKG12_ITS ---
Test Reason : pre-op Blood Pressure : / mmHG Vent. Rate : 080 BPM Atrial Rate : 080 BPM P-R Int : 148 ms QRS Dur : 074 ms QT Int : 350 ms P-R-T Axes : 024 052 051 degrees QTc Int : 403 ms Normal sinus rhythm Normal ECG When compared with ECG of 14-DEC-2023 11:25, No significant change was found Confirmed by Jared Noel ([id number]), greeting card editor SLY WAHL ([id number]) on 12/25/2023 12:11:21 PM Referred By: Juan Pablo Chawla Confirmed By:Jared Noel
[2023-12-21 11:03] LABS: Internal QC Validated? YES +Cl - CLEAR BKGD; Pregnancy, Urine Negative Negative
--- NOTE | 2023-12-21 11:05 | HP.PCM_ITS ---
History and Physical Date of Admission: 12/21/23 Assessment & Plan Assessment/Plan (1) Biliary obstruction: PLAN: Patient has biliary obstruction likely due to choledocholithiasis. She is having ERCP today. Dr. Pitt plans on placing a stent. This should preclude any further blockage in the interim and I will plan to remove her gallbladder next week. I discussed the procedure in detail with the patient. I discussed the risks, benefits, and alternatives of the procedure. I discussed the risks including but not limited to bleeding, infection, injury to surrounding organs such as the liver, bile duct, bowels. I did discuss the possibility of having to convert to an open procedure as well as the possibility that if any injuries occurred this may necessitate further surgery at a tertiary care center. Juan Pablo Chawla MD Pager: [facility] [address] [place] [address], [address] [place] [address] Office: HPI Consult Data Date of Consult: 12/14/23 HPI Narrative HPI Narrative: KENNETH BEARDEN, is a 33 F who presents with fever and epigastric pain radiating to the back. Patient was having nausea and vomiting as well. [facility] Medical History Gastric ulcer Medical History no medical history Home Medications ?Medication ?Instructions ?Recorded ?Last Taken ?Type omeprazole 20 mg capsule,delayed 20 mg PO DAILY #30 CAPSULES 08/02/23 12/13/23 Rx release norethin-ethinyl estradiol-iron 1 tab PO QDAY 12/13/23 12/12/23 History 0.8 mg-25 mcg(24)/75 mg(4) chew tablet ondansetron 8 mg disintegrating 8 mg PO Q8H PRN nausea 12/13/23 12/12/23 History tablet Allergy/AdvReac Type Severity Reaction Status Date / Time No Known Allergies Allergy Verified 12/13/23 13:59 Family History Other Hyperlipidemia Hypertension Surgical History no surgical history Social History Smoking Status: Never smoker alcohol intake: current alcohol intake frequency: a few times a week substance use type: does not use frequency: 1-2 times per week ROS Constitutional Constitutional: Reports anorexia and fever(s); Denies chills or fatigue Eyes Eyes: Denies blurry vision ENT HEENT: Denies abnormal hearing or neck pain Cardiovascular Cardiovascular: Denies chest pain Respiratory/Chest Respiratory/Chest: Denies cough or dyspnea Gastrointestinal Gastrointestinal: Reports abdominal pain, nausea and vomiting; Denies diarrhea or dysphagia Genitourinary Genitourinary: Denies change in urinary stream Musculoskeletal Musculoskeletal: Denies abnormal gait Integumentary Integumentary: Denies jaundice Neurologic Neurologic: Denies abnormal gait Psychiatric Psychiatric: Denies anxiety Endocrine Endocrinology: Denies flushing Hematologic/Lymphatic Hematologic/Lymphatic: Denies easy bleeding Physical Exam Const alert and oriented x3 HEENT normocephalic Eyes PERRL Resp normal respiratory effort Cardio Rate: regular rate Rhythm: regular rhythm GI soft to palpation and non-distended Palpation: tender Extremity normal to inspection Lab / Micro Data 12/14/23 06:15 12/14/23 06:15 Labs: Laboratory Results - last 24 hr 12/13/23 14:11: WBC 9.1, RBC 4.19 L, Hgb 13.1, Hct 39.3, MCV 93.8, MCH 31.3, MCHC 33.3, RDW Std Deviation 41.0, RDW Coeff of Remigio 11.9, Plt Count 416, MPV 10.8, Immature Gran % (Auto) 0.400, Neut % (Auto) 73.2 H, Lymph % (Auto) 16.1 L, Burke % (Auto) 9.8, Eos % (Auto) 0.3, Baso % (Auto) 0.2, Absolute Neuts (auto) 6.6, Absolute Lymphs (auto) 1.46, Nucleated RBC % 0, Sodium 135 L, Potassium 3.8, Chloride 98, Carbon Dioxide 26.0, Anion Gap 11, BUN 8, Creatinine 0.71, Estim Creat Clear Calc 97.32, Est GFR (MDRD) Af Amer 122, Est GFR (MDRD) Non-Af 101, BUN/Creatinine Ratio 11.3, Glucose 80, Calcium 10.1, Total Bilirubin 9.70 H , AST 318 H, ALT 445 H, Alkaline Phosphatase 253 H, Total Protein 8.5 H, Albumin 4.1, Globulin 4.4 H, Albumin/Globulin Ratio 0.9, Lipase 70, Serum , Qual NEGATIVE 12/13/23 14:34: Urine Color Yellow, Urine Clarity Sl. Cloudy, Urine pH 6.5, Ur Specific [place] 1.015, Urine Protein 30 H, Urine Glucose (UA) Normal, Urine Ketones 150 A*, Urine Occult Blood Negative, Urine Nitrite Positive H, Urine Bilirubin 6 H, Urine Urobilinogen 8 H, Ur Leukocyte Esterase 25 H, Urine RBC 0 SEEN, Urine WBC 0-5 SEEN, Ur Squamous Epith Cells 0-5 SEEN, Urine Bacteria 1+, Urine Mucus 0 SEEN 12/14/23 06:15: WBC 6.6, RBC 3.84 L, Hgb 11.8 L, Hct 35.1 L, MCV 91.4, MCH 30.7, MCHC 33.6, RDW Std Deviation 39.8, RDW Coeff of Remigio 11.9, Plt Count 364, MPV 10.4, Immature Gran % (Auto) 0.500, Neut % (Auto) 64.9, Lymph % (Auto) 19.4, Burke % (Auto) 13.3 H, Eos % (Auto) 1.4, Baso % (Auto) 0.5, Absolute Neuts (auto) 4.3, Absolute Lymphs (auto) 1.28, Nucleated RBC % 0, Sodium 137, Potassium 3.6, Chloride 102, Carbon Dioxide 27.0, Anion Gap 8, BUN 8, Creatinine 0.64, Estim Creat Clear Calc 106.88, Est GFR (MDRD) Af Amer 136, Est GFR (MDRD) Non-Af 113, BUN/Creatinine Ratio 12.4, Glucose 97, Calcium 9.4, Total Bilirubin 8.30 H, AST 427 H, ALT 573 H, Alkaline Phosphatase 235 H, Total Protein 7.3, Albumin 3.5, Globulin 3.8, Albumin/Globulin Ratio 0.9 Imaging Radiology Impression Abdomen/Pelvis CT 12/13/23 14:13 IMPRESSION: Gallbladder is distended with dilated intrahepatic biliary ducts as well as dilated common bile duct down to the level of the ampulla of Vater. Correlation with ultrasound is recommended for further evaluation. A lesion in the region of the ampulla of Vater should be removed. Electronically Signed: Ryder Diamond MD at 14:54 EDT , Gallbladder Ultrasound 12/13/23 15:42 IMPRESSION: Cholelithiasis with borderline gallbladder wall thickness. Dilated common bile duct. Positive sonographic Germain''s sign. Electronically Signed: Dontrell Alcala DO at 18:28 EDT , 12/14/23 0827 <Electronically signed by Juan Pablo Chawla MD> I have examined the patient and the H&P has been reviewed. There are no clinical changes since date of exam. The patient had a ERCP with stent placement and is now here for follow-up of cholecystectomy. I discussed the procedure in detail with the patient. I discussed the risks, benefits, and alternatives of the procedure. I discussed the risks including but not limited to bleeding, infection, injury to surrounding organs such as the liver, bile duct, bowels. I did discuss the possibility of having to convert to an open procedure as well as the possibility that if any injuries occurred this may necessitate further nayeli yaquelin at a tertiary care center. Juan Pablo Chawla MD Pager: [facility] [address] [place] [address], [address] [place] [address] Office:
[2023-12-21] MEDS: Lactated Ringers 1,000 ML 15 ML IV (11:24)
--- NOTE | 2023-12-21 11:41 | PRE.ANES_ITS ---
ASA Classification* ASA Classification ASA Classification: 2 Assessment & Plan Anesthesia* Anesthesia Assessment Anesthesia Assessment: Discussed sedation and/or anesthesia options, risks, benefits, and alternatives with patient/parents/legal guardian/POA. Questions invited. The patient/parents/legal guardian/POA seems to understand and agrees to proceed with anesthesia plan. Reviewed the physical assessment, medical history, allergy history and patient home medications list prior to surgery/procedure/anesthetic and documented any changes. Performed airway and anesthesia risk assessments. Anesthesia Type Anesthesia Type: General (see written pre anesthesia record for full assessment) Anesthesia Focused Assessment* Temperature: 99.0 F Pulse Rate: 75 Blood Pressure: 116/85 Respiratory Rate: 16 Pulse Ox: 100 Airway Assessment Mouth opens: >3 cm Mallampati Score: II Focused Labs Anesthesia Preop lab: CBC WBC 6.6 K/mm3 (4.4-11.0) 12/14/23 06:15 RBC 3.84 M/mm3 (4.2-5.4) L 12/14/23 06:15 Hgb 11.8 g/dL (12.0-15.0) L 12/14/23 06:15 Hct 35.1 % (37-47) L 12/14/23 06:15 Plt Count 364 K/mm3 (150-450) 12/14/23 06:15 CHEMISTRY Potassium 3.6 mmol/L (3.5-5.1) 12/15/23 15:58 Sodium 138 mmol/L (136-145) 12/15/23 15:58 BUN 12 mg/dL (7-18) 12/15/23 15:58 Creatinine 0.78 mg/dL (0.55-1.02) 12/15/23 15:58 Glucose 103 mg/dL (74-106) 12/15/23 15:58 TSH 1.77 uIU/mL (0.358-3.74) 07/28/22 13:26 COAG Urine Test Negative Negative 12/21/23 10:50 Pre-Assessment Diagnosis/Proposed Procedure Planned Operative Procedure(s): LAP LAURI WITH GRAMS Anesthesia History 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 When Was Last Pacemaker Check QUESTION #4 FULL TEXT: You/Your Family Experience fever (hyperthermia) with Anesthesia Last Oral Intake Last Oral intake: Last Oral Intake NPO since 21:00 12/21/23 11:02 Meds taken in AM with sips of Yes 12/21/23 11:02 water? 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 Female Yes 12/20/23 08:17 HX of Motion Sickness No 12/20/23 08:17 HX of N/V After Surgery No 12/20/23 08:17 Non-Smoker Yes 12/20/23 08:17 Duration of Surgery greater No 12/20/23 08:17 than 60 minutes Number of Risk Factors 2 12/20/23 08:17 PONV Score Moderate Risk 12/20/23 08:17 Height & Weight Height & Weight: Anesthesia: Height & Weight Height 5 ft 12/21/23 11:02 Weight: 67 kg 12/21/23 11:02 Body Mass Index (BMI) 28.8 12/21/23 11:02 Respiratory Assessment Respiratory Assessment - board hammer operator: Respiratory Tract Infection Hx - board hammer operator Hx Respiratory Tract Infection No 12/20/23 08:17 STOP Sleep Apnea STOP Sleep Apnea - board hammer operator: STOP Sleep Apnea - board hammer operator Hx Hypertension No 12/20/23 08:17 Hx Sleep Apnea No 12/20/23 08:17 CPAP BIPAP Do you snore loudly (louder No 12/20/23 08:17 than talking or can be heard Do you often feel tired/ No 12/20/23 08:17 fatigued/ sleepy during daytime? Has anyone observed you stop No 12/20/23 08:17 breathing during sleep? STOP Results Negative 12/20/23 08:17 QUESTION #5 FULL TEXT : Do you snore loudly (louder than talking or can be heard through closed doors)? 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 Specify any problems Hx of Preganancy in last 3 No 12/20/23 08:17 Months Nurse Filling Out Transfusion DSCHRIBER 12/20/23 08:17 & Questions: Date: 12/20/23 12/20/23 08:17 Time: 08:18 12/20/23 08:17 Patient unable to answer at this time (ie. confused, unrespo /Reproduction History /Reproductive History - board hammer operator: /Reproductive Hx- board hammer operator Hx Now Gestational Age (in weeks): EDC: Hx Hx Para Hx Section SAB No 12/20/23 08:17 Active Medications Active Medications: Current Medications Generic Name Dose Route Start Last Admin Trade Name Freq PRN Reason Stop Dose Admin Cefotetan Disodium 2 gm/ 100 mls @ 200 mls/hr 12/21/23 12:15 Sodium Chloride IV 12/21/23 12:44 PREOP ONE Lactated Ringer's 1,000 mls @ 15 mls/hr 12/21/23 11:30 12/21/23 11:24 IV 12/24/23 06:09 15 mls/hr .Q48H POWER Administration Protocol [facility] Medical History Wears contact lenses Non-smoker Gastric ulcer Home Medications ?Medication ?Instructions ?Recorded ?Last Taken ?Type norethin-ethinyl estradiol-iron 1 tab PO QDAY 12/13/23 12/12/23 History 0.8 mg-25 mcg(24)/75 mg(4) chew tablet amoxicillin 875 mg-potassium 1 tab PO BID #14 tabs 12/14/23 Unknown Rx clavulanate 125 mg tablet ondansetron 8 mg disintegrating 8 mg PO Q8H PRN nausea 3 days #10 12/14/23 Unknown Rx tablet tabs omeprazole 20 mg capsule,delayed 20 mg PO BID 12/20/23 Unknown History release Allergy/AdvReac Type Severity Reaction Status Date / Time No Known Allergies Allergy Verified 12/20/23 08:15 Family History Other Hyperlipidemia Hypertension Surgical History Hx of tonsillectomy S/P ERCP Social History Smoking Status: Never smoker alcohol intake: current alcohol intake frequency: a few times a week substance use type: does not use frequency: 1-2 times per week Review of Systems (Anesthesia) ROS Narrative System reviewed and no additional complaints, except as documented.
--- NOTE | 2023-12-21 11:44 | PRE.ANES_ITS ---
ASA Classification* ASA Classification ASA Classification: 2 Assessment & Plan Anesthesia* Anesthesia Assessment Anesthesia Assessment: Discussed sedation and/or anesthesia options, risks, benefits, and alternatives with patient/parents/legal guardian/POA. Questions invited. The patient/parents/legal guardian/POA seems to understand and agrees to proceed with anesthesia plan. Reviewed the physical assessment, medical history, allergy history and patient home medications list prior to surgery/procedure/anesthetic and documented any changes. Performed airway and anesthesia risk assessments. Anesthesia Type Anesthesia Type: General (see written pre anesthesia record for full assessment) Anesthesia Focused Assessment* Temperature: 99.0 F Pulse Rate: 75 Blood Pressure: 116/85 Respiratory Rate: 16 Pulse Ox: 100 Airway Assessment Mouth opens: >3 cm Mallampati Score: II Focused Labs Anesthesia Preop lab: CBC WBC 6.6 K/mm3 (4.4-11.0) 12/14/23 06:15 RBC 3.84 M/mm3 (4.2-5.4) L 12/14/23 06:15 Hgb 11.8 g/dL (12.0-15.0) L 12/14/23 06:15 Hct 35.1 % (37-47) L 12/14/23 06:15 Plt Count 364 K/mm3 (150-450) 12/14/23 06:15 CHEMISTRY Potassium 3.6 mmol/L (3.5-5.1) 12/15/23 15:58 Sodium 138 mmol/L (136-145) 12/15/23 15:58 BUN 12 mg/dL (7-18) 12/15/23 15:58 Creatinine 0.78 mg/dL (0.55-1.02) 12/15/23 15:58 Glucose 103 mg/dL (74-106) 12/15/23 15:58 TSH 1.77 uIU/mL (0.358-3.74) 07/28/22 13:26 COAG Urine Test Negative Negative 12/21/23 10:50 Pre-Assessment Diagnosis/Proposed Procedure Planned Operative Procedure(s): LAP LAURI WITH GRAMS Anesthesia History Anesthesia History - premium 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 When Was Last Pacemaker Check QUESTION #4 FULL TEXT: You/Your Family Experience fever (hyperthermia) with Anesthesia Last Oral Intake Last Oral intake: Last Oral Intake NPO since 21:00 12/21/23 11:02 Meds taken in AM with sips of Yes 12/21/23 11:02 water? Meds patient instructed to take am of surgery PONV PONV - premium note interest calculator clerk: PONV - premium note interest calculator clerk Female Yes 12/20/23 08:17 HX of Motion Sickness No 12/20/23 08:17 HX of N/V After Surgery No 12/20/23 08:17 Non-Smoker Yes 12/20/23 08:17 Duration of Surgery greater No 12/20/23 08:17 than 60 minutes Number of Risk Factors 2 12/20/23 08:17 PONV Score Moderate Risk 12/20/23 08:17 Height & Weight Height & Weight: Anesthesia: Height & Weight Height 5 ft 12/21/23 11:02 Weight: 67 kg 12/21/23 11:02 Body Mass Index (BMI) 28.8 12/21/23 11:02 Respiratory Assessment Respiratory Assessment - premium note interest calculator clerk: Respiratory Tract Infection Hx - premium note interest calculator clerk Hx Respiratory Tract Infection No 12/20/23 08:17 STOP Sleep Apnea STOP Sleep Apnea - premium note interest calculator clerk: STOP Sleep Apnea - premium note interest calculator clerk Hx Hypertension No 12/20/23 08:17 Hx Sleep Apnea No 12/20/23 08:17 CPAP BIPAP Do you snore loudly (louder No 12/20/23 08:17 than talking or can be heard Do you often feel tired/ No 12/20/23 08:17 fatigued/ sleepy during daytime? Has anyone observed you stop No 12/20/23 08:17 breathing during sleep? STOP Results Negative 12/20/23 08:17 QUESTION #5 FULL TEXT : Do you snore loudly (louder than talking or can be heard through closed doors)? Tobacco Use History Tobacco Use History - premium note interest calculator clerk: Tobacco Use History - premium note interest calculator clerk Tobacco Use Smoking Status Never smoker 12/20/23 08:17 Hx Tobacco Use No 12/20/23 08:17 Years Smoking Packs Smoked per Day Smoking Cessation Date was within the last 15 years Hx Smoking Cessation Date Hx Smoking Cessation Counseling Hematologic Medial History Hematologic Hx - premium note interest calculator clerk: Hematologic Medical Hx - documentation coordinator Hx of Blood Transfusion No 12/20/23 08:17 Hx of Transfusion in last 3 No 12/20/23 08:17 Months Date of Last Transfusion (if within last 3 months) Ever experience any problems No 12/20/23 08:17 with transfusion(s)? Specify any problems Hx of Preganancy in last 3 No 12/20/23 08:17 Months Nurse Filling Out Transfusion DSCHRIBER 12/20/23 08:17 & Questions: Date: 12/20/23 12/20/23 08:17 Time: 08:18 12/20/23 08:17 Patient unable to answer at this time (ie. confused, unrespo /Reproduction History /Reproductive History - premium note interest calculator clerk: /Reproductive Hx- premium note interest calculator clerk Hx Now Gestational Age (in weeks): EDC: Hx Hx Para Hx Section SAB No 12/20/23 08:17 Active Medications Active Medications: Current Medications Generic Name Dose Route Start Last Admin Trade Name Freq PRN Reason Stop Dose Admin Cefotetan Disodium 2 gm/ 100 mls @ 200 mls/hr 12/21/23 12:15 Sodium Chloride IV 12/21/23 12:44 PREOP ONE Lactated Ringer's 1,000 mls @ 15 mls/hr 12/21/23 11:30 12/21/23 11:24 IV 12/24/23 06:09 15 mls/hr .Q48H POWER Administration Protocol [facility] Medical History Wears contact lenses Non-smoker Gastric ulcer Home Medications ?Medication ?Instructions ?Recorded ?Last Taken ?Type norethin-ethinyl estradiol-iron 1 tab PO QDAY 12/13/23 12/12/23 History 0.8 mg-25 mcg(24)/75 mg(4) chew tablet ondansetron 8 mg disintegrating 8 mg PO Q8H PRN nausea 3 days #10 12/14/23 Unknown Rx tablet tabs omeprazole 20 mg capsule,delayed 20 mg PO BID 12/20/23 Unknown History release oxycodone 5 mg tablet 5 - 10 mg (1 - 2 x 5 mg) PO Q4H 12/21/23 Unknown Rx PRN PRN Pain Score 4-10 5 days #15 tabs Allergy/AdvReac Type Severity Reaction Status Date / Time No Known Allergies Allergy Verified 12/20/23 08:15 Family History Other Hyperlipidemia Hypertension Surgical History Hx of tonsillectomy S/P ERCP Social History Smoking Status: Never smoker alcohol intake: current alcohol intake frequency: a few times a week substance use type: does not use frequency: 1-2 times per week Review of Systems (Anesthesia) ROS Narrative System reviewed and no additional complaints, except as documented.
[2023-12-21] MEDS: Cefotetan 2 GM in 0.9% Normal Saline (100mL MB+) 100 ML IV (11:48)
--- NOTE | 2023-12-21 12:05 | RAD_ITS ---
PROCEDURE: FLUOROSCOPIC GUIDED CHOLANGIOGRAM/PANCREATOGRAPHY DATE OF EXAMINATION: December 21, 2023 INDICATION: Female, 33 years old. LAURI W/ IOC, PAIN, 22 seconds, 5.71 mgy, 1 cine run PHYSICIAN: Juan Pablo Chawla MD FLUOROSCOPY TIME (if supplied): 22 seconds RADIATION DOSAGE (If Supplied By Facility): CTDIvol = ( ) mGy, DLP = ( ) mGycm CONSENT: The risks, benefits and alternatives to the procedure were explained to the patient, and the patient agreed to the procedure and signed the consent. PROCEDURE/TECHNIQUE: (All elements of maximal sterile barrier technique followed, including US elements as applicable) The risks, benefits, and alternatives to the procedure were explained to patient, and the patient agreed to the procedure and signed a consent form for the procedure. Comparison study: Right upper quadrant ultrasound dated December 13, 2023 FINDINGS: Intraoperative surgical instrumentation seen in the jagdish hepatis region and overlying the liver. Contrast outlines the common bile duct and the main right and left intrahepatic biliary ducts. Contrast opacification of the cystic duct and gallbladder. No filling defects are identified. There is no biliary ductal dilatation. There is free passage into the duodenum. No extraluminal leakage of contrast is seen outside of the biliary ducts or bowel. RAD/Cholangiogram/ O R,Initial IMPRESSION: 1. Intraoperative cholangiogram Electronically Signed: Adam Arthur MD at 17:47 EDT ,
--- NOTE | 2023-12-21 12:15 | GALL_PTH ---
PATIENT: SULEIMANJUNE [place] [facility] [place][id number] AGE/SX: 33/F ROOM: RE12/21/[address]: Dr. Juan Pablo Chawla MD : 1990 BED: DIS: 12/21/2023 SPEC #: [id number] RECD: 12/21/23 18:02 STATUS: NEGAR REChano #: [id number] ROGE: 12/21/23 12:[address]: Juan Pablo Chawla DEPT: SURGICAL PATHOLOGY RECD BY: Lorrie Dang ENTERED: 12/22/23 10:05 SP TYPE: GRACE KAPOOR DR: Linda Walden MD Tissues: Gallbladder, NOS Procedures: Surgery Specimen Level III HEADER OPERATION: Laparoscopic, cholecystectomy with IOC PRE-OP DIAGNOSIS: Biliary obstruction, cholecystitis TISSUE SUBMITTED: Gallbladder MICROSCOPIC DIAGNOSIS Gallbladder, cholecystectomy: Cholesterolosis, chronic cholecystitis and cholelithiasis. AM. 12/25/2023 MICROSCOPIC DESCRIPTION Slides are reviewed. GROSS DESCRIPTION Received is one container labeled with the patient's name and designated gallbladder. The specimen consists of a gallbladder measuring 6.5 cm in length and up to 3.0 cm in diameter. The external surface is pink-reyes, smooth and glistening for the most part. Focally it is granular, hemorrhagic and contains cautery artifact. The gallbladder contains reyes mucoid bile and multiple yellow mulberry stones measuring in aggregate 2.5 x 1.2 x 0.5 cm and 0.4 to 0.5 cm in greatest dimension. The mucosa is bile-stained and without any mass lesions. The gallbladder wall measures up to 0.5 cm in thickness. Photoengraving Finisher sections from the gallbladder and the cystic duct are submitted in one cassette. / SJ:mr 12/22/2023 :3 CPT: 73048
[2023-12-21] MEDS: Bupiv/Epi 0.25% 30 ML Vial (12:45)
--- NOTE | 2023-12-21 12:49 | PCM.OPRPT ---
Report of Operation Date of Procedure: 12/21/23 Pre-Operative Diagnosis: Choledocholithiasis Post-Operative Diagnosis: History of choledocholithiasis with acute cholecystitis Surgery/Procedure Performed:: Laparoscopic cholecystectomy with cholangiograms Description of Surgical Findings:: Inflammation of the gallbladder with normal IOC's and stent in normal position Type of Anesthesia: General/Regional Specimen's removed: Gallbladder Estimated Blood Loss (mL): 20 Description of Procedure: After obtaining informed consent patient was brought back to the operating room. General anesthesia was induced. The abdomen was prepped and draped in usual sterile fashion. A small midline incision was made superior to the umbilicus and deepened to the level of fascia. The fascia was elevated and incised. Next the peritoneum was elevated and incised in the same fashion. Finger sweep was performed and the Patrick trocar was placed into the abdomen. The balloon was inflated. The abdomen was inflated to 15 mmHg. Next a camera was introduced into the abdomen and the abdomen was inspected. Next under direct visualization three 5-mm ports were placed one subxiphoid and 2 subcostal. Next the gallbladder was elevated and retracted toward the right shoulder. The peritoneum was stripped from the gallbladder. The infundibulum was located and retracted laterally. Next the triangle of Calot was dissected and the cystic duct and cystic artery were identified. Cholangiograms were performed. The Pond clamp was used to clamp across the infundibulum and the catheter needle was inserted into the gallbladder. Under fluoroscopy contrast was instilled into the gallbladder and the common duct, cystic duct as well as proximal hepatic ducts were identified. There was good filling of the duodenum. There were no filling defects noted in the common bile duct. The clamp was removed as well as the needle and the infundibulum was grasped once more. Three hemolock clips were placed across the cystic duct. The cystic duct was then divided leaving 2 clips on the stump. The cystic artery was clipped and divided in the same fashion. The hook cautery was then used to take the gallbladder off of the gallbladder bed. Hemostasis was obtained. Gallbladder fossa was irrigated and no active bleeding or bile leakage was noted. Next the camera was introduced in the subxiphoid port. An Endopouch bag was placed through the umbilical port and the gallbladder was placed into it. The gallbladder was then removed through the umbilical incision. The camera was then reinserted through the umbilical port. The gallbladder fossa was inspected once more and noted to be hemostatic with no leaking bile. The abdomen was suctioned dry. The 5 mm ports were removed under direct visualization. The umbilical port was then removed and the air was removed from the abdomen. Next using an 0 Vicryl suture the umbilical fascia was closed in a [id number] fashion. The umbilical port site was irrigated local anesthetic was administered to all the incisions. All the incisions were closed with interrupted subcuticular 4-0 Monocryl sutures followed by Steri-Strips and dressings. The patient was awoken and taken to PACU in stable condition. Admit VTE Documentation VTE Mechan Device Prophylaxis: SCD's
--- NOTE | 2023-12-21 12:50 | DCINST_ITS ---
Discharge Instructions Procedure Gallbladder Diet Discharge Diet: Light diet - advance as tolerated Activity Discharge Activity: May Not Drive (for 2-3 days or while taking narcotic pain medications.) and - (Do not drive, work heavy equipment or sign legal documents for 24 hours.) May shower in (days): 1 Lifting Restrictions: 20 lbs for 2 weeks Additional Activity Instructions:: Pain medication may cause nausea. You should typically eat light foods as you take your pain medications. Pain medication may also cause constipation. If this is a problem for you, please discuss with your doctor. Alternate ibuprofen and Tylenol for pain control, oxycodone for breakthrough pain. Dressing / Incision Call your doctor if your incision/area has: Continuous Slow Oozing, Sudden Increased Bleeding, Increased Pain/ Swelling, Increased Redness and Foul Smelling Discharge Call your doctor if you observe: Fever of 101 or Higher Suture Line Care: Avoid Pulling/Pushing and Avoid Pinching/Bending Remove Dressing in: 2 days Additional Dressing/Incision Instructions:: Leave operative bandaids on for 2 days. When you remove dressing, leave Steri-Strips on until your follow-up appointment, or until the Steri-Strips fall off on their own. Follow Up Care Please Follow Up With: Juan Pablo Chawla MD When: Please call to schedule 2 week follow up appointment. [phone] Test Results: Test results from this visit will be discussed in further detail at your follow- up appointment, if applicable. Discharge Plan Admission Attending Provider: Juan Pablo Chawla Primary Care Provider: Linda Walden Instructions Print Language: Gambian Discharge Orders/Prescriptions Prescriptions: New oxycodone 5 mg Tablet 5 - 10 mg PO Q4H PRN PRN (Reason: Pain Score 4-10) 5 Days Qty: 15 0RF Discontinued amoxicillin-pot clavulanate 875-125 mg tablet 1 tab PO BID Qty: 14 0RF No Action noreth-ethinyl estradiol-iron 0.8mg-25mcg(24) and 75 mg (4) tablet,chewable 1 tab PO QDAY ondansetron 8 mg tablet,disintegrating 8 mg PO Q8H PRN (Reason: nausea) 3 Days Qty: 10 0RF omeprazole 20 mg capsule,delayed release(DR/EC) 20 mg PO BID Referrals / Follow Up: Linda Walden MD [Primary Care Provider] - Disposition Disposition (needs filled in before D/C Order can be placed): Home, Self Care
--- NOTE | 2023-12-21 13:02 | PCM.POST.ANE ---
Anesthesia: Postop Eval I Current Vital Signs Temperature: 97.2 F Pulse Rate: 88 Blood Pressure: 115/75 Respiratory Rate: 18 Pulse Ox: 98 Assessment Airway patent: Yes Spontaneous unlabored respirations: Yes nausea: No Vomiting: No Anesthesia Complication: No Fluid Hydration Crystalloid volume administer (ml): 1,000 Total IV fluid infused: 1,000 Progress Note Anesthesia document: Postop Eval 1 completed: Yes
--- NOTE | 2023-12-21 13:23 | POSTOPAN2_ITS ---
Anesthesia Postop Eval I Sum Postop Eval Completion status Anesthesia document: Postop Eval 1 completed: Yes Anesthesia Postop Eval I Summary Anesthesia Postop Eval I Summary: Anesthesia Postop Eval I: Assessment Summary Airway patent Yes 12/21/23 13:02 CLINICAL TEAM MANAGER.[email or web address] Spontaneous unlabored Yes 12/21/23 13:02 CLINICAL TEAM MANAGER.CSIR respirations Mental status nausea No 12/21/23 13:02 CLINICAL TEAM MANAGER.CSIR Vomiting No 12/21/23 13:02 CLINICAL TEAM MANAGER.CSIR Anesthesia Postop Eval I: Fluid Summary Crystalloid volume administer 1,000 12/21/23 13:02 CLINICAL TEAM MANAGER.CSIR (ml) Colloids volume administered ( ml) Blood Product volume administered (ml) Total IV fluid infused 1,000 12/21/23 13:02 CLINICAL TEAM MANAGER.CSIR Anesthesia Postop Eval I: Summary Notes Anesthesia Complication No 12/21/23 13:02 CLINICAL TEAM MANAGER.CSIR Anesthesia Complication Comment: Post-operative progress note Anesthesia: Postop Eval II Evaluation Mental status: Awake Pain Level: 0 nausea: No Vomiting: No
--- NOTE | 2023-12-21 13:23 | PCM.POSTANE2 ---
Anesthesia Postop Eval I Sum Postop Eval Completion status Anesthesia document: Postop Eval 1 completed: Yes Anesthesia Postop Eval I Summary Anesthesia Postop Eval I Summary: Anesthesia Postop Eval I: Assessment Summary Airway patent Yes 12/21/23 13:02 ANIMAL SITTER.CSIR Spontaneous unlabored Yes 12/21/23 13:02 ANIMAL SITTER.CSIR respirations Mental status nausea No 12/21/23 13:02 ANIMAL SITTER.CSIR Vomiting No 12/21/23 13:02 ANIMAL SITTER.CSIR Anesthesia Postop Eval I: Fluid Summary Crystalloid volume administer 1,000 12/21/23 13:02 ANIMAL SITTER.CSIR (ml) Colloids volume administered ( ml) Blood Product volume administered (ml) Total IV fluid infused 1,000 12/21/23 13:02 ANIMAL SITTER.CSIR Anesthesia Postop Eval I: Summary Notes Anesthesia Complication No 12/21/23 13:02 ANIMAL SITTER.CSIR Anesthesia Complication Comment: Post-operative progress note Anesthesia: Postop Eval II Evaluation Mental status: Awake Pain Level: 0 nausea: No Vomiting: No
[2023-12-22 06:54] VITALS: BP 116/85; PULSE 75; RESP 16; TEMP 37.2; O2SAT 100
== END 2023-12-21 15:13 | disposition home or self-care (01) ==
LOC: SDC 10:42 → AC 10:42
PROVIDERS: Anesthesiology; PCP Family Medicine; Referring Provider Surgery; Visit Provider Surgery
PROC: (CPT 47610; principal; 2023-12-21 11:55)
DX: K80.67 Calculus of gallbladder and bile duct with acute and chronic cholecystitis with obstruction (principal)
CPT/HCPCS: 47563; 00790; 74300; 76000; 81025; 88304; 93005; J7120; J2405

== ENCOUNTER 2024-02-22 10:02 | Day surgery (SDC) | payer OTHER, SELFPAY ==
[2024-02-22] VITALS (7 sets, daily range): BP systolic 107–123; BP diastolic 70–80; PULSE 71–97; RESP 16–18; TEMP 36.3–37.2; O2SAT 98–99; BMI 26.6
--- NOTE | 2024-02-22 10:15 | EKG12_ITS ---
Test Reason : PRE OP Blood Pressure : */* mmHG Vent. Rate : 64 BPM Atrial Rate : 64 BPM P-R Int : 160 ms QRS Dur : 70 ms QT Int : 374 ms P-R-T Axes : 9 52 36 degrees QTcB Int : 385 ms Normal sinus rhythm Normal ECG When compared with ECG of 21-Dec-2023 11:04, No significant change was found Confirmed by DAVID DANIEL, SHERWIN ([id number]), supervising editor news reel LAURY BUNN ([id number]) on 02/26/2024 6:41:45 AM Referred By: Linda Walden Confirmed By: SHERWIN HERNANDEZ MD
[2024-02-22 10:30] LABS: Internal QC Validated? YES +Cl - CLEAR BKGD; Pregnancy, Urine Negative Negative
--- NOTE | 2024-02-22 11:00 | FLU_PTH ---
PATIENT: SULEIMANJUNE [place] LOC: [facility] U#:[id number] AGE/SX: 33/F ROOM: RE02/22/[address]: Dr. Pete Pitt DO : 1990 BED: DIS: 02/22/2024 SPEC #: [id number] RECD: 02/22/24 12:22 STATUS: NEGAR MARTINA #: [id number] ROGE: 02/22/24 11:[address]: Pete Pitt DEPT: CYTOLOGY RECD BY: Marva Aparicio ENTERED: 02/22/24 12:50 SP TYPE: Fluid OTHR DR: Linda Walden MD Tissues: Bile duct, NOS Procedures: Special Stain Group II Surgery Specimen Level III Surgery Specimen Level IV Cytospin Fluid HEADER OPERATION: Stent removal, balloon choliangiogram PRE-OP DIAGNOSIS: Status post ERCP, status post cholecystectomy, cholielithiasis, biliary obstruction TISSUE SUBMITTED: Biliary stent fluid for cytology DIAGNOSIS CYTOLOGY Biliary stent fluid for cytology (cytospins and cellblock): Negative for malignant cells. See comment. AMTeena 02/23/2024 COMMENT The specimen is virtually acellular. Clinical correlation is suggested. CYTOLOGY STUDY Slides are reviewed. CYTOLOGY GROSS Received is one 8cm blue stent with 0.2 ml of yellow thick material labeled with the patient's name and and designated per the requisition as Biliary stent. Submitted for cytology preparation including cell block. Mr 02/22/2024 TC:5 CPT: 88120,14640
--- NOTE | 2024-02-22 11:01 | PCM.HP.STD ---
HPI - General General Date of Admission: 02/22/24 Date of Service: 02/22/24 Chief Complaint: Stent removal HPI Narrative KENNETH SULEIMAN, is a 33 y/o F I am following s/p laparoscopic cholecystectomy with intraoperative cholangiogram by Dr. Chawla on 12/21/23. Patient also had an ERCP with stent placement and stone removal on 12/14/23. Patient tolerated the procedure well. Patient denies any abdominal pain/discomfort. She denies any nausea, vomiting, fever. She notes appetite has returned to normal. She notes bowel habits have returned to normal. She continues to duct stent removal. [facility] Medical History Wears contact lenses Non-smoker Gastric ulcer Home Medications ?Medication ?Instructions ?Recorded ?Last Taken ?Type norethin-ethinyl estradiol-iron 1 tab PO QDAY 12/13/23 12/12/23 History 0.8 mg-25 mcg(24)/75 mg(4) chew tablet omeprazole 20 mg capsule,delayed 20 mg PO BID 12/20/23 Unknown History release Allergy/AdvReac Type Severity Reaction Status Date / Time No Known Allergies Allergy Verified 02/22/24 10:26 Family History Other Hyperlipidemia Hypertension Surgical History S/P cholecystectomy Hx of tonsillectomy S/P ERCP Social History Smoking Status: Never smoker alcohol intake: current alcohol intake frequency: a few times a week substance use type: does not use frequency: 1-2 times per week ROS Constitutional Constitutional: Reports anorexia and fever(s); Denies chills or fatigue Eyes Eyes: Denies blurry vision ENT HEENT: Denies abnormal hearing or neck pain Cardiovascular Cardiovascular: Denies chest pain Respiratory/Chest Respiratory/Chest: Denies cough or dyspnea Gastrointestinal Gastrointestinal: Reports abdominal pain, nausea and vomiting; Denies diarrhea or dysphagia Genitourinary Genitourinary: Denies change in urinary stream Musculoskeletal Musculoskeletal: Denies abnormal gait Integumentary Integumentary: Denies jaundice Neurologic Neurologic: Denies abnormal gait Psychiatric Psychiatric: Denies anxiety Endocrine Endocrinology: Denies flushing Hematologic/Lymphatic Hematologic/Lymphatic: Denies easy bleeding Vital Signs Vital Signs Vital Signs: 02/22/24 10:28 02/22/24 10:30 Temperature 99 F Temperature Source Temporal Pulse Rate 80 Respiratory Rate 16 Respiratory Pattern Normal Blood Pressure 123/78 H Blood Pressure Mean 93 Blood Pressure Source Monitor Blood Pressure Position Semi-Fowlers Blood Pressure Location Right Arm Pulse Ox 99 Oxygen Delivery Method Room Air Weight Weight: 155 lb 3.287 oz Body Mass Index (BMI) 26.6 Physical Exam Narrative General: Alert, Oriented x3, Cooperative, No apparent distress HEENT: Atraumatic, PERRLA, EOMI, Normocephalic, mild scleral icterus Oral: Moist Mucosa Neck: Supple, No JVD Lungs: Clear to auscultation, Normal air movement, No rhonchi, No wheeze, No rales Cardiovascular: Regular rate, Regular Rhythm, Normal S1, Normal S2, No murmurs Abdomen: Soft, minimally tender, Non-Distended, No Hepato-splenomegaly Extremities: No edema, Capillary Refill Less than 3 Seconds Skin: No rashes, No breakdown, jaundice Musculoskeletal: No Tenderness to Palpation of Joints or Extremities Neurological: No focal neurological deficits, Motor Exam 5/5 strength throughout, Sensory exam intact to light touch and pain Psych/Mental Status: Normal Affect, Appropriate Results Lab / Micro Data Labs: Laboratory Results - last 24 hr 02/22/24 10:20: Urine Test Negative Assessment & Plan Assessment/Plan (1) S/P ERCP: (2) S/P cholecystectomy: (3) Cholelithiasis: (4) Elevated liver enzymes: (5) Biliary obstruction: PLAN: Plan 33-year-old presenting with right upper quadrant pain and discovered to have cholestatic hepatitis with jaundice secondary to biliary obstruction. Continue with cholecystectomy and ERCP with stone removal and stent placement. She comes in today for stent removal or replacement. She was explained alternatives, risk, benefits, understanding bleeding, infection, sepsis, perforation, need for return to . She will have an ASA of 3
--- NOTE | 2024-02-22 11:19 | PRE.ANES_ITS ---
ASA Classification* ASA Classification ASA Classification: 1 Assessment & Plan Anesthesia* Anesthesia Assessment Anesthesia Assessment: Discussed sedation and/or anesthesia options, risks, benefits, and alternatives with patient/parents/legal guardian/POA. Questions invited. The patient/parents/legal guardian/POA seems to understand and agrees to proceed with anesthesia plan. Reviewed the physical assessment, medical history, allergy history and patient home medications list prior to surgery/procedure/anesthetic and documented any changes. Performed airway and anesthesia risk assessments. Anesthesia Type Anesthesia Type: MAC History Source History Obtained from:: Patient and Chart Anesthesia Focused Assessment* Temperature: 99 F Pulse Rate: 80 Blood Pressure: 123/78 Respiratory Rate: 16 Pulse Ox: 99 Oxygen Delivery Method: Room Air Airway Assessment Mouth opens: >3 cm Mallampati Score: IV Teeth Condition: Caps/Crowns (Patient has a couple crowns. On molars right lower and left upper. They are tight.) Neck Range of motion (ROM): Full ROM Focused Labs Anesthesia Preop lab: CBC WBC 6.6 K/mm3 (4.4-11.0) 12/14/23 06:15 RBC 3.84 M/mm3 (4.2-5.4) L 12/14/23 06:15 Hgb 11.8 g/dL (12.0-15.0) L 12/14/23 06:15 Hct 35.1 % (37-47) L 12/14/23 06:15 Plt Count 364 K/mm3 (150-450) 12/14/23 06:15 CHEMISTRY Potassium 3.6 mmol/L (3.5-5.1) 12/15/23 15:58 Sodium 138 mmol/L (136-145) 12/15/23 15:58 BUN 12 mg/dL (7-18) 12/15/23 15:58 Creatinine 0.78 mg/dL (0.55-1.02) 12/15/23 15:58 Glucose 103 mg/dL (74-106) 12/15/23 15:58 TSH 1.77 uIU/mL (0.358-3.74) 07/28/22 13:26 COAG Urine Test Negative Negative 02/22/24 10:20 Pre-Assessment Diagnosis/Proposed Procedure Planned Operative Procedure(s): ERCP Anesthesia History Anesthesia History - vp ad products and planning: Anesthesia History - vp ad products and planning Hx Hospitalization Yes: 12/2023 - ERCP/ 02/21/24 10:33 GALLBLADDER Any Problems With Anesthesia No 02/21/24 10:33 Cholinesterase deficiency No 02/21/24 10:33 You/Your Family Experience No 02/21/24 10:33 fever (hyperthermia) with Relationship Recent Exposure to Contagious No 02/22/24 10:30 Disease Does patient have nerve No 02/21/24 10:33 stimulator Patient instructed to have device shut off --Does patient have Pacemaker No 02/22/24 10:28 or ICD? When Was Last Pacemaker Check QUESTION #4 FULL TEXT: You/Your Family Experience fever (hyperthermia) with Anesthesia Last Oral Intake Last Oral intake: Last Oral Intake NPO since 22:00 02/22/24 10:28 Meds taken in AM with sips of No 02/22/24 10:28 water? Meds patient instructed to take am of surgery PONV PONV - vp ad products and planning: PONV - vp ad products and planning Female Yes 02/21/24 10:33 HX of Motion Sickness No 02/21/24 10:33 HX of N/V After Surgery No 02/21/24 10:33 Non-Smoker Yes 02/21/24 10:33 Duration of Surgery greater No 02/21/24 10:33 than 60 minutes Number of Risk Factors 2 02/21/24 10:33 PONV Score Moderate Risk 02/21/24 10:33 Height & Weight Height & Weight: Anesthesia: Height & Weight Height 5 ft 4 in 02/22/24 10:28 Weight: 70.4 kg 02/22/24 10:28 Body Mass Index (BMI) 26.6 02/22/24 10:28 Respiratory Assessment Respiratory Assessment - vp ad products and planning: Respiratory Tract Infection Hx - vp ad products and planning Hx Respiratory Tract Infection No 02/21/24 10:33 STOP Sleep Apnea STOP Sleep Apnea - vp ad products and planning: STOP Sleep Apnea - vp ad products and planning Hx Hypertension No 02/21/24 10:33 Hx Sleep Apnea No 02/21/24 10:33 CPAP BIPAP Do you snore loudly (louder No 02/21/24 10:33 than talking or can be heard Do you often feel tired/ No 02/21/24 10:33 fatigued/ sleepy during daytime? Has anyone observed you stop No 02/21/24 10:33 breathing during sleep? STOP Results Negative 02/21/24 10:33 QUESTION #5 FULL TEXT : Do you snore loudly (louder than talking or can be heard through closed doors)? 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 Specify any problems Hx of Preganancy in last 3 N/A 02/21/24 10:33 Months Nurse Filling Out Transfusion NBUCHER 02/21/24 10:33 & Questions: Date: 02/21/24 02/21/24 10:33 Time: 10:35 02/21/24 10:33 Patient unable to answer at this time (ie. confused, unrespo /Reproduction History /Reproductive History - vp ad products and planning: /Reproductive Hx- vp ad products and planning Hx Now No 02/21/24 10:33 Gestational Age (in weeks): EDC: Hx Hx Para Hx Section SAB No 02/21/24 10:33 [facility] Medical History Wears contact lenses Non-smoker Gastric ulcer Home Medications ?Medication ?Instructions ?Recorded ?Last Taken ?Type norethin-ethinyl estradiol-iron 1 tab PO QDAY 12/13/23 12/12/23 History 0.8 mg-25 mcg(24)/75 mg(4) chew tablet omeprazole 20 mg capsule,delayed 20 mg PO BID 12/20/23 Unknown History release Allergy/AdvReac Type Severity Reaction Status Date / Time No Known Allergies Allergy Verified 02/22/24 10:26 Family History Other Hyperlipidemia Hypertension Surgical History S/P cholecystectomy Hx of tonsillectomy S/P ERCP Social History Smoking Status: Never smoker alcohol intake: current alcohol intake frequency: a few times a week substance use type: does not use frequency: 1-2 times per week Review of Systems (Anesthesia) ROS Narrative System reviewed and no additional complaints, except as documented.
--- NOTE | 2024-02-22 11:45 | RAD_ITS ---
STUDY: ERCP REASON FOR EXAM: Female, 33 years old. ERCP FLUOROSCOPY TIME (if supplied): ( 1 minute and 37 seconds ) minutes/seconds. 27.28 mGy. 10 fluoroscopic images were obtained. TECHNIQUE: Fluoroscopic services provided for ERCP. COMPARISON: Comparison is made with prior study December 14, 2023. RAD/ERCP Biliary/Pancreas IMPRESSION: Fluoroscopic services provided for ERCP. Electronically Signed: Ryder Diamond MD at 8:21 EST ,
--- NOTE | 2024-02-22 12:21 | OP.CCLET_ITS ---
02/22/2024 Linda Walden Md Re : ERCP procedure for [place] This procedure was performed on February. My impressions and recommendations are as follows: Impressions : - A filling defect consistent with a stone was seen on the cholangiogram. - Choledocholithiasis was found. Complete removal was accomplished by biliary sphincterotomy and balloon extraction. - A biliary sphincterotomy was performed. - The biliary tree was swept. - One stent was removed from the biliary tree. Recommendations : My findings are described in the full procedure note, which is enclosed. If I can be of further assistance, please feel free to contact me at . Sincerely, Pete Pitt, 02/22/2024 12:21:13 PM This report has been signed electronically.
--- NOTE | 2024-02-22 12:21 | OP.ERCP_ITS ---
Patient Name: June Cinda Procedure Date: 02/22/2024 11:35 AM Date of : 1990 Age: 33 Procedure: ERCP Indications: Jaundice, Elevated liver enzymes, Biliary stent removal Providers: Pete Pitt DO Referring MD: Linda Walden Md Medicines: Monitored Anesthesia Care Patient Profile: This is a 33 year old female. Refer to note in patient chart for documentation of history and physical. Patient has symptoms of chronic right upper quadrant abdominal pain and acute jaundice. Complications: No immediate complications. Procedure: Pre-Anesthesia Assessment: - Prior to the procedure, a History and Physical was performed, and patient medications and allergies were reviewed. The patient is competent. The risks and benefits of the procedure and the sedation options and risks were discussed with the patient. All questions were answered and informed consent was obtained. Patient identification and proposed procedure were verified by the physician in the pre-procedure area. Mental Status Examination: alert and oriented. Airway Examination: normal oropharyngeal airway and neck mobility. Respiratory Examination: clear to auscultation. CV Examination: normal. Prophylactic Antibiotics: The patient does not require prophylactic antibiotics. Prior Anticoagulants: The patient has taken no anticoagulant or antiplatelet agents. ASA Grade Assessment: II - A patient with mild systemic disease. After reviewing the risks and benefits, the patient was deemed in satisfactory condition to undergo the procedure. The anesthesia plan was to use monitored anesthesia care (MAC). Immediately prior to administration of medications, the patient was re-assessed for adequacy to receive sedatives. The heart rate, respiratory rate, oxygen saturations, blood pressure, adequacy of pulmonary ventilation, and response to care were monitored throughout the procedure. The physical status of the patient was re-assessed after the procedure. After obtaining informed consent, the scope was passed under direct vision. Throughout the procedure, the patient's blood pressure, pulse, and oxygen saturations were monitored continuously. The Duodenoscope was introduced through the mouth, and advanced to the duodenum and used to inject contrast into the bile duct. The ERCP was accomplished without difficulty. The patient tolerated the procedure well. Scope In: 11:56:03 AM Scope Out: 12:06:04 PM Total Procedure Duration Time 0 hours 10 minutes 1 second Findings: The street light servicer supervisor film was normal. The esophagus was successfully intubated under direct vision. The scope was advanced to a normal major papilla in the descending duodenum without detailed examination of the pharynx, larynx and associated structures, and upper GI tract. The upper GI tract was grossly normal. The bile duct was deeply cannulated with the short-nosed traction sphincterotome. Contrast was injected. I personally interpreted the bile duct images. There was brisk flow of contrast through the ducts. Image quality was adequate. Contrast extended to the main bile duct. Contrast extended to the cystic duct. Contrast extended to the bifurcation. Contrast extended to the hepatic ducts. Contrast extended to the entire biliary tree. The lower third of the main bile duct contained filling defect(s) thought to be a stone. A long 0.025 inch Jagwire passed successfully into the left main hepatic duct, the right main hepatic duct and the left and right hepatic ducts and all intrahepatic branches. A 5 mm biliary sphincterotomy was made with a traction (standard) sphincterotome using ERBE electrocautery. The sphincterotomy oozed blood. The biliary tree was swept with a 12 mm balloon starting at the bifurcation, left intrahepatic duct(s), left main hepatic duct, right intrahepatic duct(s) and right main hepatic duct. Sludge was swept from the duct. All stones were removed. One stent was removed from the biliary tree using a snare and sent for cytology. The stent was found to be patent via the water column test. Impression: - A filling defect consistent with a stone was seen on the cholangiogram. - Choledocholithiasis was found. Complete removal was accomplished by biliary sphincterotomy and balloon extraction. - A biliary sphincterotomy was performed. - The biliary tree was swept. - One stent was removed from the biliary tree. Procedure Code(s): --- Professional --- 46462, Endoscopic retrograde cholangiopancreatography (ERCP); with removal of foreign body(s) or stent(s) from biliary/pancreatic duct(s) 77070, Endoscopic retrograde cholangiopancreatography (ERCP); with removal of calculi/debris from biliary/pancreatic duct(s) 30274, Endoscopic retrograde cholangiopancreatography (ERCP); with sphincterotomy/papillotomy 62823, 26, Endoscopic catheterization of the biliary ductal system, radiological supervision and interpretation CPT copyright 2021 [employer]. All rights reserved. The codes documented in this report are preliminary and upon frame table operator review may be revised to meet current compliance requirements. Pete Pitt DO 02/22/2024 12:21:13 PM This report has been signed electronically. Number of Addenda: 0 Note Initiated On: 02/22/2024 11:35 AM
--- NOTE | 2024-02-22 12:21 | PCM.POST.ANE ---
Anesthesia: Postop Eval I Current Vital Signs Temperature: 98 F Pulse Rate: 86 Blood Pressure: 111/80 Respiratory Rate: 16 Pulse Ox: 98 Oxygen Delivery Method: Room Air Assessment Airway patent: Yes Spontaneous unlabored respirations: Yes Mental status: Awake and Calm nausea: No Vomiting: No Anesthesia Complication: No Fluid Hydration Crystalloid volume administer (ml): 60 Total IV fluid infused: 60 Progress Note Anesthesia document: Postop Eval 1 completed: Yes
--- NOTE | 2024-02-23 07:36 | PCM.POSTANE2 ---
Anesthesia Postop Eval I Sum Postop Eval Completion status Anesthesia document: Postop Eval 1 completed: Yes Anesthesia Postop Eval I Summary Anesthesia Postop Eval I Summary: Anesthesia Postop Eval I: Assessment Summary Airway patent Yes 02/22/24 12:22 [email or web address] Spontaneous unlabored Yes 02/22/24 12:22 [email or web address] respirations Mental status Awake,Calm 02/22/24 12:22 [email or web address] nausea No 02/22/24 12:22 [email or web address] Vomiting No 02/22/24 12:22 [email or web address] Anesthesia Postop Eval I: Fluid Summary Crystalloid volume administer 60 02/22/24 12:22 [email or web address] (ml) Colloids volume administered ( ml) Blood Product volume administered (ml) Total IV fluid infused 60 02/22/24 12:22 [email or web address] Anesthesia Postop Eval I: Summary Notes Anesthesia Complication No 02/22/24 12:22 [email or web address] Anesthesia Complication Comment: Post-operative progress note Anesthesia: Postop Eval II Evaluation Mental status: Awake Pain Level: 1 nausea: Yes Vomiting: No
== END 2024-02-22 12:45 | disposition home or self-care (01) ==
LOC: EN 10:02 → AC 10:03
PROVIDERS: Anesthesiology; PCP Family Medicine; Referring Provider Family Medicine; Visit Provider Internal Medicine Gastroenterology
PROC: (CPT 43260; principal; 2024-02-22 10:40)
DX: K80.51 Calculus of bile duct without cholangitis or cholecystitis with obstruction (principal); Z90.49 Acquired absence of other specified parts of digestive tract; K75.89 Other specified inflammatory liver diseases; Z46.59 Encounter for fitting and adjustment of other gastrointestinal appliance and device
CPT/HCPCS: 43262; 43275; 43264; 74330; 76000; 81025; 88108; 88304; 88305; 88313; 93005; A4216; J2405

== ENCOUNTER → 2024-02-27 | Outpatient (CLI) | payer OTHER, SELFPAY ==
--- NOTE | 2024-02-27 09:58 | US_ITS ---
STUDY: ABDOMINAL ULTRASOUND - RIGHT UPPER QUADRANT REASON FOR VISIT: Female, 33 years old RUQ pain, hx ERCP with stent removal -- cholecystectomy dec 2023 TECHNIQUE: Ultrasound evaluation of the right upper quadrant was performed with real-time and static flannery-scale imaging. TECHNICAL QUALITY: Adequate. COMPARISON: 12/13/2023 FINDINGS: Liver: The liver measures 18.1 cm. There is normal echogenicity of the liver. The bile ducts are within normal limits. There is hepatic color flow. The direction of portal flow is hepatopetal. There is no demonstrated mass lesion. Gallbladder: The patient is status post cholecystectomy.. Common Bile Duct (C.B.D.): The common bile duct measures 4 mm. Pancreas: Normal size of the head, body and tail of the pancreas. There is normal echogenicity of the pancreas. There is no demonstrated pancreatic mass or cyst. Right Kidney: Normal size of the right kidney. The right kidney measures 10.9 cm. Normal renal cortex. The right cortex measures 1.3 cm. There is no demonstrated renal mass or cyst. There is no right hydronephrosis. US/Abdomen Limited IMPRESSION: Normal right upper quadrant ultrasound examination. Electronically Signed: Kunal Mcbride MD at 11:17 EST ,
[2024-02-27 10:20] LABS: Absolute Lymphocyte Count 2.05 X10^3/uL (0.83-4.51); Absolute Neutrophil Count 6.1 X10^3/uL (2.0-7.7); Basophil# 0.03 X10^3/uL; Basophil% 0.3 % (0-1); Eosinophil# 0.05 X10^3/uL; Eosinophils% 0.6 % (0-5); Hematocrit 34.3 % (37-47); Hemoglobin 11.5 g/dL (12.0-15.0); Lymphocyte # 2.05 X10^3/ul (0.83-4.51); Lymphocyte % 23.1 % (19-41); Mean Corp Hgb Conc 33.5 g/dL (32-36); Mean Corpuscular Volume 92.5 fL (81-99); Mean Platelet Vol. 10.5 fl (6.2-12.0); Monocyte# 0.67 X10^3/uL; Monocyte% 7.5 % (0-10); NRBC Flagged by Analyzer 0 % (0-5); Neutrophil # 6.05 X10^3/uL (2.7-7.7); Neutrophil % 68.1 % (47-70); Platelet Count 342 K/mm3 (150-450); RBC Distribution Width CV 12.1 % (11.6-14.6); RBC Distribution Width SD 41.5 fl (35.1-43.9); Red Blood Count 3.71 M/mm3 (4.2-5.4); White Blood Count 8.9 K/mm3 (4.4-11.0)
[2024-02-27 11:13] LABS: ALB/GLOB Ratio 0.9 RATIO (0.9-2.4); AST(SGOT) 10 U/L (15-37); Alanine Aminotransfer ALT/SGPT 13 U/L (13-56); Albumin, Serum 3.6 g/dL (3.2-5.0); Alkaline Phosphatase 61 U/L (45-117); Anion Gap 3 (5-15); BUN 10 mg/dL (7-18); BUN/Creat Ratio 14.9 RATIO (10-20); Calcium,Total 9.2 mg/dL (8.5-10.1); Chloride 105 mmol/L (98-107); Creatinine, Serum 0.67 mg/dL (0.55-1.02); EST Glomerular Filtration Rate 108 mL/min (>60); Est Glom Filt Rate - Afr Amer 130 mL/min (>60); Globulin 4.1 g/dL (2.2-4.2); Glucose 90 mg/dL (74-106); Potassium 4.1 mmol/L (3.5-5.1); Protein, Total 7.7 g/dL (6.4-8.2); Sodium Level 135 mmol/L (136-145)
== END | disposition home or self-care (01) ==
LOC: US 09:47
PROVIDERS: PCP Family Medicine; Referring Provider Internal Medicine Gastroenterology; Visit Provider Internal Medicine Gastroenterology
DX: R10.11 Right upper quadrant pain (principal); K80.20 Calculus of gallbladder without cholecystitis without obstruction
CPT/HCPCS: 36415; 76705; 80053; 85025

== ENCOUNTER → 2024-10-03 | Outpatient (CLI) | payer OTHER, SELFPAY ==
--- OUTSIDE RECORDS SUMMARY | 2024-10-03 08:35 | XMS RPT_ITS | CCD ---
Author Organization [facility] Care Team Providers Care Long Chain Beamer Name Role Phone Tsering Castorena Attending Unavailable Linda Walden Referring Unavailable Walden, Linda Primary Care Unavailable Agyepong, Mike Admitting Unavailable Pelaez, Landen Referring Unavailable Calabrbenson, Juan Pablo Consulting Unavailable Yang Fink Attending Unavailable Walden, Linda Primary Care Unavailable Agyepong, Mike Consulting Unavailable Tsering Castorena Attending Unavailable Naman Wilkerson Referring Unavailable Wilkerson, Naman Primary Care Unavailable Walden, Linda Referring Unavailable Sly Galvez Attending Unavailable Walden, Linda Primary Care Unavailable Jared Noel Referring Unavailable Jared Noel Attending Unavailable Walden, Linda Primary Care Unavailable FriendPete Consulting Unavailable Friend, Pete Attending Unavailable WaldenLinda hale Referring Unavailable Walden, Linda Primary Care Unavailable Calmartha, Juan Pablo Consulting Unavailable Denton, Juan Pablo Referring Unavailable Calabrbenson, Juan Pablo Attending Unavailable Iram, Linda Primary Care Unavailable Agyepong, Mike Admitting Unavailable Pelaez, Landen Referring Unavailable Calabrbenson, Juan Pablo Consulting Unavailable Denton, Juan Pablo Attending Unavailable Iram, Linda Primary Care Unavailable Agyepong, Mike Consulting Unavailable Yang Fink Consulting Unavailable Agyepong, Mike Admitting Unavailable Pelaez, Landen Referring Unavailable Calabretta, Juan Pablo Consulting Unavailable Walden, Linda Primary Care Unavailable Katia Finks F Attending Unavailable Agyepong, Mike Consulting Unavailable Yang Fink F Consulting Unavailable Agyepong, Mike Admitting Unavailable Agyepong, Mike Attending Unavailable Agyepong, Mike Consulting Unavailable Benigno, Landen Referring Unavailable Waldne, Linda Primary Care Unavailable Agyepong, Mike Admitting Unavailable Friend, Pete Attending Unavailable PelaezLanden Referring Unavailable Calabrbenson, Juan Pablo Consulting Unavailable Walden, Linda Primary Care Unavailable Agyepong, Mike Consulting Unavailable Yang Fink Consulting Unavailable Juan Pablo Chawla Referring Unavailable Jared Noel Attending Unavailable Linda Walden Primary Care Unavailable Friend, Pete Referring Unavailable Walden, Linda Primary Care Unavailable Asher Pepper Attending Unavailable Friend, Pete Attending Unavailable Yang Fink Referring Unavailable Walden, Linda Primary Care Unavailable Friend, Pete Attending Unavailable Linda Walden Referring Unavailable Iram, Linda Primary Care Unavailable Juan Pablo Chawla Referring Unavailable Juan Pablo Chawla Attending Unavailable Iram, Linda Primary Care Unavailable Friend, Pete Referring Unavailable Friend, Pete Attending Unavailable Linda Walden Primary Care Unavailable Linda Walden Attending Unavailable Walden, Linda Primary Care Unavailable Walden, Linda Referring Unavailable Iram DANIEL, Linda Primary Care Provider Linda Walden MD Referring Provider Tsering Bernardo Attending Provider [phone] Medications Current Medications Medication Drug Class(es) Dates Sig (Normalized) Sig (Original) Noreth-Ethinyl Estradiol-Iron (1 source) Estrogen Start: 12-13-2023 take 1 tablet by mouth once daily Noreth-Ethinyl Estradiol-Iron 0.8mg-25mcg(24) and 75 mg (4) tablet,chewable Active 1 {tbl} PO daily December 13, 2023 12:00am omeprazole 20 mg delayed release oral capsule (3 sources) Proton Pump Inhibitor Start: 10-03-2024 take 2 capsules by mouth twice daily Omeprazole 20 mg capsule,delayed release(DR/EC) Active 40 mg PO TWICE A DAY October 03, 2024 7:37am Start: 12-20-2023 End: 10-03-2024 take 1 capsule by mouth twice daily Omeprazole 20 mg capsule,delayed release(DR/EC) Discontinued 20 mg PO TWICE A DAY December 20, 2023 12:00am October 03, 2024 7:37am Start: 08-02-2023 End: 12-20-2023 take 1 capsule by mouth once daily Omeprazole 20 mg capsule,delayed release(DR/EC) Discontinued 20 mg PO DAILY August 02, 2023 12:00am December 20, 2023 8:16am ondansetron 8 mg disintegrating oral tablet (3 sources) Serotonin-3 Receptor Antagonist Start: 10-03-2024 take 1 tablet by mouth three times daily Ondansetron 8 mg tablet,disintegrating Active 8 mg PO THREE TIMES A DAY October 03, 2024 12:00am Start: 12-13-2023 End: 01-03-2024 take 1 tablet by mouth every eight hours as needed for nausea Ondansetron 8 mg tablet,disintegrating Discontinued 8 mg PO Q8H as needed for nausea 10 3 0 December 14, 2023 3:49pm January 03, 2024 8:45am sucralfate 1000 mg oral tablet (2 sources) Aluminum Complex Start: 10-03-2024 take 1 tablet by mouth twice daily Sucralfate 1 gram tablet Active 1 g PO TWICE A DAY 30 2 October 03, 2024 12:00am Start: 12-13-2023 End: 12-13-2023 take 1 tablet by mouth four times daily Sucralfate 1 gram tablet Discontinued 1 g PO 4 TIMES DAILY December 13, 2023 12:00am December 13, 2023 3:33pm Completed/Discontinued Medications Medication Drug Class(es) Dates Sig (Normalized) Sig (Original) amoxicillin 875 mg / clavulanate 125 mg oral tablet (1 source) Penicillin-class Antibacterial Start: 12-14-2023 End: 12-21-2023 Amoxicillin-Pot Clavulanate 875-125 mg tablet Discontinued 1 {tbl} PO TWICE A DAY 14 0 December 14, 2023 12:00am December 21, 2023 12:51pm oxyCODONE hydrochloride 5 mg oral tablet (1 source) Opioid Agonist Start: 12-21-2023 End: 01-03-2024 take 5-10 mg by mouth every four hours as needed for pain Oxycodone 5 mg Tablet Discontinued 5 - 10 mg PO EVERY 4 HOURS NEEDED as needed for Pain Score 4-10 15 5 0 December 21, 2023 January 03, 2024 8:45am Cholelithiasis Calculus of gallbladder without cholecystitis without obstruction Problems Active Problems Problem Classification Problem Date Documented Date Episodic/Chronic Abdominal pain (6 sources) Right upper quadrant pain; Translations: [Epigastric pain] Onset: 12-28-2023 12-13-2023 Episodic Biliary tract disease (2 sources) Obstruction of bile duct; Translations: [Obstruction of biliary tree] Onset: 03-25-2024 12-13-2023 Chronic Biliary tract disease (6 sources) Calculus of gallbladder without cholecystitis without obstruction; Translations: [Calculus of bile duct without cholangitis or cholecystitis with obstruction] Onset: 01-09-2024 12-13-2023 Episodic Esophageal disorders (1 source) Gastroesophageal reflux disease; Translations: [Gastro-esophageal reflux disease without esophagitis] 08-10-2023 Chronic Nonspecific chest pain (1 source) Chest pain; Translations: [Chest pain, unspecified] 08-10-2023 Episodic Other liver diseases (2 sources) Elevated liver enzymes level; Translations: [Abnormal levels of other serum enzymes] 12-13-2023 Episodic Residual codes; unclassified (1 source) Past history of procedure; Translations: [Other specified postprocedural states] 01-03-2024 Episodic Comment on above: WITH STENT 12/2023 Past or Other Problems Problem Classification Problem Date Documented Date Episodic/Chronic Other liver diseases (1 source) Abnormal levels of other serum enzymes; Translations: [Abnormal levels of other serum enzymes] Onset: 03-25-2024 Episodic Residual codes; unclassified (1 source) Other specified postprocedural states; Translations: [Other specified postprocedural states] Onset: 03-25-2024 Episodic Residual codes; unclassified (1 source) Acquired absence of other specified parts of digestive tract; Translations: [Acquired absence of other specified parts of digestive tract] Onset: 03-25-2024 Episodic Results Test Name Value Interpretation Reference Range Facility Abdomen Limitedon 02-27-[address] [facility] Imaging Services [address] [place] [address] Abdomen Limited MR#: [id number] Acct: [id number] Name: LIBBY BEARDEN Rep #: [id number] : 1990 F 33 From: Kunal Mcbride MD PCP: Linda Walden MD Status: REG CLI Study: Abdomen Limited Date of Exam: 02/27/24 Exam# [id number] Ordering Dr: Pete Pitt DO [id number] STUDY: ABDOMINAL ULTRASOUND - RIGHT UPPER QUADRANT REASON FOR VISIT: Female, 33 years old RUQ pain, hx ERCP with stent removal -- cholecystectomy dec 2023 TECHNIQUE: Ultrasound evaluation of the right upper quadrant was performed with real-time and static galan-scale imaging. TECHNICAL QUALITY: Adequate. COMPARISON: 12/13/2023 FINDINGS: Liver: The liver measures 18.1 cm. There is normal echogenicity of the liver. The bile ducts are within normal limits. There is hepatic color flow. The direction of portal flow is hepatopetal. There is no demonstrated mass lesion. Gallbladder: The patient is status post cholecystectomy.. Common Bile Duct (C.B.D.): The common bile duct measures 4 mm. Pancreas: Normal size of the head, body and tail of the pancreas. There is normal echogenicity of the pancreas. There is no demonstrated pancreatic mass or cyst. Right Kidney: Normal size of the right kidney. The right kidney measures 10.9 cm. Normal renal cortex. The right cortex measures 1.3 cm. There is no demonstrated renal mass or cyst. There is no right hydronephrosis. US/Abdomen Limited IMPRESSION: Normal right upper quadrant ultrasound examination. Electronically Signed: Kunal Mcbride MD at 11:17 EST , CC: Linda Walden MD; Pete Pitt, Clinic Lpn: Signed Normal [facility] CBC W/Diff, Automatedon 12-2 Absolute Lymph 2.05 X10 3/uL Normal 0.83-4.51 [facility] Comment on above: Performed By: #### L 500.4050, L100.0100 ####[facility] [address] [place], [address] Absolute Neut 6.1 X10 3/uL Normal 2.0-7.7 [facility] Comment on above: Performed By: #### L 500.4050, L100.0100 ####[facility] [address] [place], [address] Basophils/100 WBC (Bld) 0.3 % Normal 0-1 [facility] Comment on above: Performed By: #### L 500.4050, L100.0100 ####[facility] [address] [place], [address] Eosinophils/100 WBC (Bld) 0.6 % Normal 0-5 [facility] Comment on above: Performed By: #### L 500.4050, L100.0100 ####[facility] [address] [place], [address] Erythrocyte distribution width (RBC) [Ratio] 12.1 % Normal 11.6-14.6 [facility] Comment on above: Performed By: #### L 500.4050, L100.0100 ####[facility] [address] [place], [address] Hematocrit (Bld) [Volume fraction] 34.3 % Low 37-47 [facility] Comment on above: Performed By: #### L 500.4050, L100.0100 ####[facility] [address] [place], [address] Hemoglobin (Bld) [Mass/Vol] 11.5 g/dL Low 12.0-15.0 [facility] Comment on above: Performed By: #### L 500.4050, L100.0100 ####[facility] [address] [place], [address] IG% 0.400 Normal 0.0-0.9 [facility] Comment on above: Result Comment: IG% - Immature Granulocytes (promyelocytes, myelocytes and metamyelocytes) > 1% indicates that a LEFT SHIFT is Present. Performed By: #### L 500.4050, L100.0100 ####[facility] [address] [place], [address] Lymphocytes/100 WBC (Bld) 23.1 % Normal 19-41 [facility] Comment on above: Performed By: #### L 500.4050, L100.0100 ####[facility] [address] [place], [address] MCH (RBC) [Entitic mass] 31.0 pg Normal 27.0-32.0 [facility] Comment on above: Performed By: #### L 500.4050, L100.0100 ####[facility] [address] [place], [address] MCHC (RBC) [Mass/Vol] 33.5 g/dL Normal 32-36 [facility] Comment on above: Performed By: #### L 500.4050, L100.0100 ####[facility] [address] [place], [address] MCV (RBC) [Entitic vol] 92.5 fL Normal 81-99 [facility] Comment on above: Performed By: #### L 500.4050, L100.0100 ####[facility] [address] [place], [address] Monocytes/100 WBC (Bld) 7.5 % Normal 0-10 [facility] Comment on above: Performed By: #### L 500.4050, L100.0100 ####[facility] [address] [place], [address] Neutrophils/100 WBC (Bld) 68.1 % Normal 47-70 [facility] Comment on above: Performed By: #### L 500.4050, L100.0100 ####[facility] [address] [place], [address] Nucleated RBC (Bld) [#/Vol] 0 10*3/uL Normal 0-5 [facility] Comment on above: Performed By: #### L 500.4050, L100.0100 ####[facility] [address] [place], [address] Platelet mean volume (Bld) [Entitic vol] 10.5 fL Normal 6.2-12.0 [facility] Comment on above: Performed By: #### L 500.4050, L100.0100 ####[facility] [address] [place], [address] Platelets (Bld) [#/Vol] 342 10*3/uL Normal 150-450 [facility] Comment on above: Performed By: #### L 500.4050, L100.0100 ####[facility] [address] [place], [address] RBC (Bld) [#/Vol] 3.71 10*6/uL Low 4.2-5.4 [facility] Comment on above: Performed By: #### L 500.4050, L100.0100 ####[facility] [address] [place], [address] RDW SD 41.5 fl Normal 35.1-43.9 [facility] Comment on above: Performed By: #### L 500.4050, L100.0100 ####[facility] [address] [place], [address] WBC (Bld) [#/Vol] 8.9 10*3/uL Normal 4.4-11.0 [facility] Comment on above: Performed By: #### L 500.4050, L100.0100 ####[facility] [address] [place], [address] Comprehensive Metabolic Prof ilon 12-24-2024 Albumin [Mass/Vol] 3.6 g/dL Normal 3.2-5.0 [facility] Comment on above: Performed By: #### L 500.4050, L100.0100 ####[facility] [address] [place], [address] Albumin/Globulin [Mass ratio] 0.9 {ratio} Normal 0.9-2.4 [facility] Comment on above: Performed By: #### L 500.4050, L100.0100 ####[facility] [address] [place], [address] ALK P 61 U/L Normal 45-117 [facility] Comment on above: Performed By: #### L 500.4050, L100.0100 ####[facility] [address] [place], [address] ALT [Catalytic activity/Vol] 13 U/L Normal 13-56 [facility] Comment on above: Performed By: #### L 500.4050, L100.0100 ####[facility] [address] [place], [address] AST [Catalytic activity/Vol] 10 U/L Low 15-37 [facility] Comment on above: Performed By: #### L 500.4050, L100.0100 ####[facility] [address] [place], [address] Bilirubin [Mass/Vol] 0.50 mg/dL Normal 0.20-1.00 [facility] Comment on above: Result Comment: For patients on eltrombopag therapy, use of Dimension Carmine TBIL is not recommended. Performed By: #### L 500.4050, L100.0100 ####[facility] [address] [place], [address] BUN/CRE 14.9 RATIO Normal 10-20 [facility] Comment on above: Performed By: #### L 500.4050, L100.0100 ####[facility] [address] [place], [address] CA,Total 9.2 mg/dL Normal 8.5-10.1 [facility] Comment on above: Performed By: #### L 500.4050, L100.0100 ####[facility] [address] [place], [address] Chloride [Moles/Vol] 105 mmol/L Normal 98-107 [facility] Comment on above: Performed By: #### L 500.4050, L100.0100 ####[facility] [address] [place], [address] CO2 [Moles/Vol] 27.0 mmol/L Normal 21.0-32.0 [facility] Comment on above: Performed By: #### L 500.4050, L100.0100 ####[facility] [address] [place], [address] Creatinine [Mass/Vol] 0.67 mg/dL Normal 0.55-1.02 [facility] Comment on above: Result Comment: The validity of the calculated GFR GFRAA in patients over 70 years has not been determined. Clinical correlation is essential. Performed By: #### L 500.4050, L100.0100 ####[facility] [address] [place], [address] EST GFR - AA 130 mL/min Normal >60 [facility] Comment on above: Result Comment: Afri can Citizen Of [place] GFR Calc Performed By: #### L 500.4050, L100.0100 ####[facility] [address] [place], [address] GAP 3 Low 5-15 [facility] Comment on above: Performed By: #### L 500.4050, L100.0100 ####[facility] [address] [place], [address] GFR/1.73 sq M.predicted among non-blacks MDRD (S/P/Bld) [Vol rate/Area] 108 mL/min/{1.73_m2} Normal >60 [facility] Comment on above: Result Comment: Non- GFR Calc Performed By: #### L 500.4050, L100.0100 ####[facility] [address] [place], [address] Globulin (S) [Mass/Vol] 4.1 g/dL Normal 2.2-4.2 [facility] Comment on above: Performed By: #### L 500.4050, L100.0100 ####[facility] [address] [place], [address] Glucose [Mass/Vol] 90 mg/dL Normal 74-106 [facility] Comment on above: Performed By: #### L 500.4050, L100.0100 ####[facility] [address] [place], [address] Potassium [Moles/Vol] 4.1 mmol/L Normal 3.5-5.1 [facility] Comment on above: Performed By: #### L 500.4050, L100.0100 ####[facility] [address] [place], [address] Sodium [Moles/Vol] 135 mmol/L Low 136-145 [facility] Comment on above: Performed By: #### L 500.4050, L100.0100 ####[facility] [address] [place], [address] T PROT 7.7 g/dL Normal 6.4-8.2 [facility] Comment on above: Performed By: #### L 500.4050, L100.0100 ####[facility] [address] [place], [address] Urea nitrogen [Mass/Vol] 10 mg/dL Normal 7-18 [facility] Comment on above: Performed By: #### L 500.4050, L100.0100 ####[facility] [address] [place], [address] MR/[id number] 02-23-2024 MR/POSTOPAN2 [facility] Medical Records Department [address] [place] [address] Anesthesia Postop Eval II 02/23/24 0736 MR#: [id number] Acct: [id number] Name: LIBBY BEARDEN Rep #: [id number] : 1990 33 From: Thierry Watson MD PCP: Linda Walden MD Status:DEP [facility] Y Race: C Location: EN Anesthesia Postop Eval I Sum Postop Eval Completion status Anesthesia document: Postop Eval 1 completed: Yes Anesthesia Postop Eval I Summary Anesthesia Postop Eval I Summary: Anesthesia Postop Eval I: Assessment Summary Airway patent Yes 02/22/24 12:22 [email or web address] Spontaneous unlabored Yes 02/22/24 12:22 [email or web address] respirations Mental status Awake,Calm 02/22/24 12:22 [email or web address] nausea No 02/22/24 12:22 [email or web address] Vomiting No 02/22/24 12:22 [email or web address] Anesthesia Postop Eval I: Fluid Summary Crystalloid volume administer 60 02/22/24 12:22 [email or web address] (ml) Colloids volume administered ( ml) Blood Product volume administered (ml) Total IV fluid infused 60 02/22/24 12:22 [email or web address] Anesthesia Postop Eval I: Summary Notes Anesthesia Complication No 02/22/24 12:22 [email or web address] Anesthesia Complication Comment: Post-operative progress note Anesthesia: Postop Eval II Evaluation Mental status: Awake Pain Level: 1 nausea: Yes Vomiting: No 02/23/24 0736 Date Thierry Watson MD Cosigner Signature: Date CC: Signed Normal [facility] 12 Lead EKGon 02-22-[address] [facility] Cardiovascular Services [address] [facility] [place] [address] 12 Lead EKG 02/22/24 1025 MR#: [id number] Acct: [id number] Name: LIBBY BEARDEN Rep #: [id number] : 1990 33 From: Ashre Pepper MD Attending Dr: Pete Pitt DO Status: DEP JEFF C Ordering Dr: Thierry Watson MD Date: 02/22/24 Location: Sex: F C Admitted: Test Reason : PRE OP Blood Pressure : */* mmHG Vent. Rate : 64 BPM Atrial Rate : 64 BPM P-R Int : 160 ms QRS Dur : 70 ms QT Int : 374 ms P-R-T Axes : 9 52 36 degrees QTcB Int : 385 ms Normal sinus rhythm Normal ECG When compared with ECG of 21-Dec-2023 11:04, No significant change was found Confirmed by DAVID DANIEL, ASHER ([id number]), book or script editor LAURY BUNN ([id number]) on 02/26/2024 6:41:45 AM Referred By: Linda Walden Confirmed By: ASHER PEPPER MD 02/26/24 0641 Date Asher Pepper MD CC: Dr. Thierry Watson MD; Linda Walden MD; Pete Pitt DO Signed [facility] ERCP Biliary/Pancreason 02-03 ERCP Biliary/Pancreas [facility] Imaging Services [address] [place], [place] [id number] ERCP Biliary/Pancreas MR#: [id number] Acct: [id number] Name: LIBBY BEARDEN Rep #: [id number] : 1990 F 33 From: Ryder leblanc MD PCP: Linda Walden MD Status: [facility] Study: ERCP Biliary/Pancreas Date of Exam: 02/22/24 Exam# [id number] Ordering Dr: Pete Pitt DO [id number] STUDY: ERCP REASON FOR EXAM: Female, 33 years old. ERCP FLUOROSCOPY TIME (if supplied): ( 1 minute and 37 seconds ) minutes/seconds. 27.28 mGy. 10 fluoroscopic images were obtained. TECHNIQUE: Fluoroscopic services provided for ERCP. COMPARISON: Comparison is made with prior study December 14, 2023. RAD/ERCP Biliary/Pancreas IMPRESSION: Fluoroscopic services provided for ERCP. Electronically Signed: Ryder Diamond MD at 8:21 EST , CC: Linda Walden MD; Pete Pitt DO Clinic Lpn: Signed Normal [facility] ERCP Reporton 02-22-[address] [facility] Medical Records Department [address] [place] [address] ERCP Report MR#: [id number] Acct: [id number] Name: LIBBY BEARDEN Rep #: [id number] : 1990 33 From: Pete Pitt DO PCP: Linda Walden MD Status:[facility] Patient Name: Libby Bearden Procedure Date: 02/22/2024 11:35 AM Date of : 1990 Age: 33 Procedure: ERCP Indications: Jaundice, Elevated liver enzymes, Biliary stent removal Providers: Pete Pitt DO Referring MD: Linda Walden Md Medicines: Monitored Anesthesia Care Patient Profile: This is a 33 year old female. Refer to note in patient chart for documentation of history and physical. Patient has symptoms of chronic right upper quadrant abdominal pain and acute jaundice. Complications: No immediate complications. Procedure: Pre-Anesthesia Assessment: - Prior to the procedure, a History and Physical was performed, and patient medications and allergies were reviewed. The patient is competent. The risks and benefits of the procedure and the sedation options and risks were discussed with the patient. All questions were answered and informed consent was obtained. Patient identification and proposed procedure were verified by the physician in the pre-procedure area. Mental Status Examination: alert and oriented. Airway Examination: normal oropharyngeal airway and neck mobility. Respiratory Examination: clear to auscultation. CV Examination: normal. Prophylactic Antibiotics: The patient does not require prophylactic antibiotics. Prior Anticoagulants: The patient has taken no anticoagulant or antiplatelet agents. ASA Grade Assessment: II - A patient with mild systemic disease. After reviewing the risks and benefits, the patient was deemed in satisfactory condition to undergo the procedure. The anesthesia plan was to use monitored anesthesia care (MAC). Immediately prior to administration of medications, the patient was re-assessed for adequacy to receive sedatives. The heart rate, respiratory rate, oxygen saturations, blood pressure, adequacy of pulmonary ventilation, and response to care were monitored throughout the procedure. The physical status of the patient was re-assessed after the procedure. After obtaining informed consent, the scope was passed under direct vision. Throughout the procedure, the patient's blood pressure, pulse, and oxygen saturations were monitored continuously. The Duodenoscope was introduced through the mouth, and advanced to the duodenum and used to inject contrast into the bile duct. The ERCP was accomplished without difficulty. The patient tolerated the procedure well. Scope In: 11:56:03 AM Scope Out: 12:06:04 PM Total Procedure Duration Time 0 hours 10 minutes 1 second Findings: The senior scrum master film was normal. The esophagus was successfully intubated under direct vision. The scope was advanced to a normal major papilla in the descending duodenum without detailed examination of the pharynx, larynx and associated structures, and upper GI tract. The upper GI tract was grossly normal. The bile duct was deeply cannulated with the short-nosed traction sphincterotome. Contrast was injected. I personally interpreted the bile duct images. There was brisk flow of contrast through the ducts. Image quality was adequate. Contrast extended to the main bile duct. Contrast extended to the cystic duct. Contrast extended to the bifurcation. Contrast extended to the hepatic ducts. Contrast extended to the entire biliary tree. The lower third of the main bile duct contained filling defect(s) thought to be a stone. A long 0.025 inch Jagwire passed successfully into the left main hepatic duct, the right main hepatic duct and the left and right hepatic ducts and all intrahepatic branches. A 5 mm biliary sphincterotomy was made with a traction (standard) sphincterotome using ERBE electrocautery. The sphincterotomy oozed blood. The biliary tree was swept with a 12 mm balloon starting at the bifurcation, left intrahepatic duct(s), left main hepatic duct, right intrahepatic duct(s) and right main hepatic duct. Sludge was swept from the duct. All stones were removed. One stent was removed from the biliary tree using a snare and sent for cytology. The stent was found to be patent via the water column test. Impression: - A filling defect consistent with a stone was seen on the cholangiogram. - Choledocholithiasis was found. Complete removal was accomplished by biliary sphincterotomy and balloon extraction. - A biliary sphincterotomy was performed. - The biliary tree was swept. - One stent was removed from the biliary tree. Procedure Code(s): --- Professional --- 03912, Endoscopic retrograde cholangiopancreatography (ERCP); with removal of foreign body(s) or stent(s) from biliary/pancreatic duct(s) (more content not included)... Normal [facility] MR/POSTOP.[facility] 02-22-2024 MR/POSTOP.[facility] Medical Records Department [address] [place] [address] Anesthesia Postop Eval I 02/22/24 1221 MR#: [id number] Acct: [id number] Name: LIBBY BEARDEN Rep #: [id number] : 1990 33 From: Sage Pastrana PCP: Linda Walden MD Status:REG SDC Y Race: C Location: [place] [address] Anesthesia: Postop Eval I Current Vital Signs Temperature: 98 F Pulse Rate: 86 Blood Pressure: 111/80 Respiratory Rate: 16 Pulse Ox: 98 Oxygen Delivery Method: Room Air Assessment Airway patent: Yes Spontaneous unlabored respirations: Yes Mental status: Awake and Calm nausea: No Vomiting: No Anesthesia Complication: No Fluid Hydration Crystalloid volume administer (ml): 60 Total IV fluid infused: 60 Progress Note Anesthesia document: Postop Eval 1 completed: Yes 02/22/24 1222 Date Sage Crook Signature: Date CC: Signed Normal [facility] ,Urineon 02-22-2024 Beta HCG ( test) Ql (U) Negative Normal [facility] Comment on above: Result Comment: Very dilute urine specimens, as indicated by a low specific gravity, may not contain access representative levels of hCG. If is still suspected, a first morning urine specimen should be collected 48 hours later and tested. Performed By: #### L 400.7600 #### [facility] [place], [address] Special Stain Group IIon Special Stain Group II Patient Age/Sex Location Account Attending Physician LIBBY BEARDEN 33/F EN [id number] Pete Pitt DO Specimen: [id number] Received: 02/22/24-1222 Status: NEGAR Kebede Num: [id number] Spec Type: Fluid Subm Dr: Pete Pitt DO HEADER OPERATION: Stent removal, balloon choliangiogram PRE-OP DIAGNOSIS: Status post ERCP, status post cholecystectomy, cholielithiasis, biliary obstruction TISSUE SUBMITTED: Biliary stent fluid for cytology DIAGNOSIS CYTOLOGY Biliary stent fluid for cytology (cytospins and cellblock): Negative for malignant cells. See comment. AM. 02/23/2024 COMMENT The specimen is virtually acellular. Clinical correlation is suggested. CYTOLOGY STUDY Slides are reviewed. CYTOLOGY GROSS Received is one 8cm blue stent with 0.2 ml of yellow thick material labeled with the patient's name and and designated per the requisition as Biliary stent. Submitted for cytology preparation including cell block. 02/22/2024 TC:5 CPT: 54873,06944 Signed (signature on file) Dr. Jian Hinojosa, 02/23/24 1203 Normal [facility] Comment on above: Performed By: #### P SSII #### [facility] [address] [place], [address] Surgery Visit Reporton 01-02 Surgery Visit Report [facility] [address] [place] [address] OFFICE VISIT Date of Service: 01/03/24 MR#: [id number] Acct: [id number] Name: LIBBY BEARDEN Rep #: [id number] : 1990 Provider: MARYSOL porter Age/Sex: 33/F Location: [facility] Status: Signed Intake Vital Signs 12/21/23 11:02 Height 5 ft Intake Visit Reasons: S/P LAP LAURI 12-20 Chief Complaint: s/p lab lauri 12-20 Is patient in pain?: No Allergies No Known Allergies Allergy (Verified 01/03/24 08:44) Medications ???Medication ???Instructions ???Recorded ???Confirmed ???Type norethin-ethinyl estradiol-iron 1 tab PO QDAY 12/13/23 12/20/23 History 0.8 mg-25 mcg(24)/75 mg(4) chew tablet omeprazole 20 mg capsule,delayed 20 mg PO BID 12/20/23 12/20/23 History release Subjective Details: Patient is a 33 y/o F I am following s/p laparoscopic cholecystectomy with intraoperative cholangiogram by Dr. Chawla on 12/21/23. Patient also had an ERCP with stent placement and stone removal by Dr. Pitt on 12/14/23. Patient tolerated the procedure well. Patient denies any abdominal pain/discomfort. She denies any nausea, vomiting, fever. She notes appetite has returned to normal. She notes bowel habits have returned to normal. Pathology demonstrated chronic cholecystitis and cholelithiasis Objective Details: Abdomen- soft, nontender. Incisions c/d/i. No erythema or infection noted. Coding Level of Care Code Global Post Op Diagnoses S/P cholecystectomy Z90.49 S/P ERCP Z98.890 [facility] Medical History Wears contact lenses Non-smoker Gastric ulcer Surgical History (Updated 01/03/24 @ 14:39 by Sly OLIVER PA-C) S/P cholecystectomy Hx of tonsillectomy S/P ERCP Family History Other Hyperlipidemia Hypertension Social History Smoking Status: Never smoker alcohol intake: current alcohol intake frequency: a few times a week substance use type: does not use frequency: 1-2 times per week Assessment and Plan (No Qualifiers) Assessment and Plan (1) S/P cholecystectomy: Status: Acute Plan: Recommend no strenuous activity for an additional 2 weeks Follow-up as needed (2) S/P ERCP: Status: Acute Comment: WITH STENT 12/2023 Plan: Contact Dr. Hernandez office to schedule an ERCP with stent removal Office contact card was provided 01/03/24 1440 Date Sly OLIVER PA-C Cosigner Signature: Date (if applicable) CC: Linda Walden MD [facility] 12 Lead EKGon 12-21-[address] [facility] Cardiovascular Services [address] [place] [address] 12 Lead EKG 12/21/23 1104 MR#: [id number] Acct: [id number] Name: LIBBY BEARDEN Rep #: [id number] : 1990 33 From: Jared Noel MD Attending Dr: Dr. Juan Pablo Chawla MD Status: [facility] Ordering Dr: Mina Hernandez MD Date: 12/21/23 Location: [facility] Sex: F C Admitted: Test Reason : pre-op Blood Pressure : / mmHG Vent. Rate : 080 BPM Atrial Rate : 080 BPM P-R Int : 148 ms QRS Dur : 074 ms QT Int : 350 ms P-R-T Axes : 024 052 051 degrees QTc Int : 403 ms Normal sinus rhythm Normal ECG When compared with ECG of 14-DEC-2023 11:25, No significant change was found Confirmed by Jared Noel ([id number]), book or script editor SLY WAHL ([id number]) on 12/25/2023 12:11:21 PM Referred By: Juan Pablo Chawla Confirmed By:Jared Noel 12/25/23 1211 Date Jared Noel MD CC: Dr. Juan Pablo Chawla MD; Dr. Mina Hernandez MD; Linda Walden MD Signed Normal [facility] Cholangiogram/ O R,Initialon 12-21-2023 Cholangiogram/ O R,Initial [facility] Imaging Services [address] [place], [place] [address] Cholangiogram/ O R,Initial MR#: [id number] Acct: [id number] Name: LIBBY BEARDEN Rep #: [id number] : 1990 F 33 From: Adam cummins MD PCP: Linda Walden MD Status: [facility] Study: Cholangiogram/ O R,Initial Date of Exam: 12/20 Exam# [id number] Ordering Dr: Juan Pablo Chawla [id number] PROCEDURE: FLUOROSCOPIC GUIDED CHOLANGIOGRAM/PANCREATOGRA PHY DATE OF EXAMINATION: December 21, 2023 INDICATION: Female, 33 years old. LAURI W/ IOC, PAIN, 22 seconds, 5.71 mgy, 1 cine run PHYSICIAN: Juan Pablo Chawla MD FLUOROSCOPY TIME (if supplied): 22 seconds RADIATION DOSAGE (If Supplied By Facility): CTDIvol = ( ) mGy, DLP = ( ) mGycm CONSENT: The risks, benefits and alternatives to the procedure were explained to the patient, and the patient agreed to the procedure and signed the consent. PROCEDURE/TECHNIQUE: (All elements of maximal sterile barrier technique followed, including US elements as applicable) The risks, benefits, and alternatives to the procedure were explained to patient, and the patient agreed to the procedure and signed a consent form for the procedure. Comparison study: Right upper quadrant ultrasound dated December 13, 2023 FINDINGS: Intraoperative surgical instrumentation seen in the jagdish hepatis region and overlying the liver. Contrast outlines the common bile duct and the main right and left intrahepatic biliary ducts. Contrast opacification of the cystic duct and gallbladder. No filling defects are identified. There is no biliary ductal dilatation. There is free passage into the duodenum. No extraluminal leakage of contrast is seen outside of the biliary ducts or bowel. RAD/Cholangiogram/ O R,Initial IMPRESSION: 1. Intraoperative cholangiogram Electronically Signed: Adam Arthur MD at 17:47 EDT Reading Location ID and State: [address] [place] [address] , Service support , CC: Dr. Juan Pablo Chawla MD; Linda Walden MD Clinic Lpn: Signed Normal [facility] Discharge Instructionon 12-04 Discharge Instruction [facility] Medical Records Department [address] [place] [address] Instructions for Home/Discharge Instructions 12/21/23 1250 MR#: [id number] Acct: [id number] Name: LIBBY BEARDEN Rep #: [id number] : 1990 33 From: Juan Pablo Chawla MD PCP: Linda Walden MD Status:REG [facility] Discharge Instructions Procedure Gallbladder Diet Discharge Diet: Light diet - advance as tolerated Activity Discharge Activity: May Not Drive (for 2-3 days or while taking narcotic pain medications.) and - (Do not drive, work heavy equipment or sign legal documents for 24 hours.) May shower in (days): 1 Lifting Restrictions: 20 lbs for 2 weeks Additional Activity Instructions:: Pain medication may cause nausea. You should typically eat light foods as you take your pain medications. Pain medication may also cause constipation. If this is a problem for you, please discuss with your doctor. Alternate ibuprofen and Tylenol for pain control, oxycodone for breakthrough pain. Dressing / Incision Call your doctor if your incision/area has: Continuous Slow Oozing, Sudden Increased Bleeding, Increased Pain/ Swelling, Increased Redness and Foul Smelling Discharge Call your doctor if you observe: Fever of 101 or Higher Suture Line Care: Avoid Pulling/Pushing and Avoid Pinching/Bending Remove Dressing in: 2 days Additional Dressing/Incision Instructions:: Leave operative bandaids on for 2 days. When you remove dressing, leave Steri-Strips on until your follow-up appointment, or until the Steri-Strips fall off on their own. Follow Up Care Please Follow Up With: Juan Pablo Chawla MD When: Please call to schedule 2 week follow up appointment. [phone] Test Results: Test results from this visit will be discussed in further detail at your follow-up appointment, if applicable. Discharge Plan Admission Attending Provider: Juan Pablo Chawla Primary Care Provider: Linda Walden Instructions Print Language: Luxembourgish Discharge Orders/Prescriptions Prescriptions: New oxycodone 5 mg Tablet 5 - 10 mg PO Q4H PRN PRN (Reason: Pain Score 4-10) 5 Days Qty: 15 0RF Discontinued amoxicillin-pot clavulanate 875-125 mg tablet 1 tab PO BID Qty: 14 0RF No Action noreth-ethinyl estradiol-iron 0.8mg-25mcg(24) and 75 mg (4) tablet,chewable 1 tab PO QDAY ondansetron 8 mg tablet,disintegrating 8 mg PO Q8H PRN (Reason: nausea) 3 Days Qty: 10 0RF omeprazole 20 mg capsule,delayed release(DR/EC) 20 mg PO BID Referrals / Follow Up: Linda Walden MD [Primary Care Provider] - Disposition Disposition (needs filled in before D/C Order can be placed): Home, Self Care 12/21/23 1252 Juan Pablo Chawla MD CC: Linda Walden MD Signed [facility] MR/POSTOP.ANEon 12-21-2023 MR/POSTOP.ANE [facility] Medical Records Department [address] [place] [address] Anesthesia Postop Eval I 12/21/23 1302 MR#: [id number] Acct: [id number] Name: LIBBY BEARDEN Rep #: [id number] : 1990 33 From: Mari Higgins PCP: Linda Walden MD Status:REG SDC Y Race: C Location: [place] [address] Anesthesia: Postop Eval I Current Vital Signs Temperature: 97.2 F Pulse Rate: 88 Blood Pressure: 115/75 Respiratory Rate: 18 Pulse Ox: 98 Assessment Airway patent: Yes Spontaneous unlabored respirations: Yes nausea: No Vomiting: No Anesthesia Complication: No Fluid Hydration Crystalloid volume administer (ml): 1,000 Total IV fluid infused: 1,000 Progress Note Anesthesia document: Postop Eval 1 completed: Yes 12/21/23 1303 Date Mari Crook Signature: Date CC: Signed [facility] MR/[id number] 12-21-2023 MR/POSTOPAN2 [facility] Medical Records Department [address] [facility] [place] [address] Anesthesia Postop Eval II 12/21/23 1323 MR#: [id number] Acct: [id number] Name: LIBBY BEARDEN Rep #: [id number] : 1990 33 From: Mina Hernandez MD PCP: Linda Walden MD Status:REG SDC Y Race: C Location: [place] [address] Anesthesia Postop Eval I Sum Postop Eval Completion status Anesthesia document: Postop Eval 1 completed: Yes Anesthesia Postop Eval I Summary Anesthesia Postop Eval I Summary: Anesthesia Postop Eval I: Assessment Summary Airway patent Yes 12/21/23 13:02 CANE FLUME WATCHER.CSIR Spontaneous unlabored Yes 12/21/23 13:02 CANE FLUME WATCHER.CSIR respirations Mental status nausea No 12/21/23 13:02 CANE FLUME WATCHER.CSIR Vomiting No 12/21/23 13:02 CANE FLUME WATCHER.CSIR Anesthesia Postop Eval I: Fluid Summary Crystalloid volume administer 1,000 12/21/23 13:02 CANE FLUME WATCHER.CSIR (ml) Colloids volume administered ( ml) Blood Product volume administered (ml) Total IV fluid infused 1,000 12/21/23 13:02 CANE FLUME WATCHER.CSIR Anesthesia Postop Eval I: Summary Notes Anesthesia Complication No 12/21/23 13:02 CANE FLUME WATCHER.CSIR Anesthesia Complication Comment: Post-operative progress note Anesthesia: Postop Eval II Evaluation Mental status: Awake Pain Level: 0 nausea: No Vomiting: No 12/21/23 1323 Date Mina Hernandez MD Cosigner Signature: Date CC: Signed [facility] Operative Reporton 4 Operative Report [facility] Medical Records Department [address] [place] [address] Operative Report 12/21/23 1249 MR#: [id number] Acct: [id number] Name: LIBBY BEARDEN Rep #: [id number] : 1990 33 From: Juan Pablo Chawla MD PCP: Linda Walden MD Status:[facility] Location: [place] [address] Report of Operation Date of Procedure: 12/21/23 Pre-Operative Diagnosis: Choledocholithiasis Post-Operative Diagnosis: History of choledocholithiasis with acute cholecystitis Surgery/Procedure Performed:: Laparoscopic cholecystectomy with cholangiograms Description of Surgical Findings:: Inflammation of the gallbladder with normal IOC's and stent in normal position Type of Anesthesia: General/Regional Specimen's removed: Gallbladder Estimated Blood Loss (mL): 20 Description of Procedure: After obtaining informed consent patient was brought back to the operating room. General anesthesia was induced. The abdomen was prepped and draped in usual sterile fashion. A small midline incision was made superior to the umbilicus and deepened to the level of fascia. The fascia was elevated and incised. Next the peritoneum was elevated and incised in the same fashion. Finger sweep was performed and the Patrick trocar was placed into the abdomen. The balloon was inflated. The abdomen was inflated to 15 mmHg. Next a camera was introduced into the abdomen and the abdomen was inspected. Next under direct visualization three 5-mm ports were placed one subxiphoid and 2 subcostal. Next the gallbladder was elevated and retracted toward the right shoulder. The peritoneum was stripped from the gallbladder. The infundibulum was located and retracted laterally. Next the triangle of Calot was dissected and the cystic duct and cystic artery were identified. Cholangiograms were performed. The Pond clamp was used to clamp across the infundibulum and the catheter needle was inserted into the gallbladder. Under fluoroscopy contrast was instilled into the gallbladder and the common duct, cystic duct as well as proximal hepatic ducts were identified. There was good filling of the duodenum. There were no filling defects noted in the common bile duct. The clamp was removed as well as the needle and the infundibulum was grasped once more. Three hemolock clips were placed across the cystic duct. The cystic duct was then divided leaving 2 clips on the stump. The cystic artery was clipped and divided in the same fashion. The hook cautery was then used to take the gallbladder off of the gallbladder bed. Hemostasis was obtained. Gallbladder fossa was irrigated and no active bleeding or bile leakage was noted. Next the camera was introduced in the subxiphoid port. An Endopouch bag was placed through the umbilical port and the gallbladder was placed into it. The gallbladder was then removed through the umbilical incision. The camera was then reinserted through the umbilical port. The gallbladder fossa was inspected once more and noted to be hemostatic with no leaking bile. The abdomen was suctioned dry. The 5 mm ports were removed under direct visualization. The umbilical port was then removed and the air was removed from the abdomen. Next using an 0 Vicryl suture the umbilical fascia was closed in a [id number] fashion. The umbilical port site was irrigated local anesthetic was administered to all the incisions. All the incisions were closed with interrupted subcuticular 4-0 Monocryl sutures followed by Steri-Strips and dressings. The patient was awoken and taken to PACU in stable condition. Admit VTE Documentation VTE Mechan Device Prophylaxis: SCD's 12/21/23 1250 Cosigner Signature (if applicable): CC: Dr. Juan Pablo Chawla MD; Lnida Walden MD Signed [facility] ,Urineon 12-21-2023 Beta HCG ( test) Ql (U) Negative Normal [facility] Comment on above: Result Comment: Very dilute urine specimens, as indicated by a low specific gravity, may not contain access representative levels of hCG. If is still suspected, a first morning urine specimen should be collected 48 hours later and tested. Performed By: #### L 400.7600 ####[facility] [id number] [place], [address] Surgery Specimen Level IIIon 12-21-2023 Surgery Specimen Level III Patient Age/Sex Location Account Attending Physician LIBBY BEARDEN 33/ [facility] [id number] Dr. Juan Pablo Chawla MD Specimen: [id number] Received: 12/21/23 Status: NEGAR Kebede Num: [id number] Spec Type: GRACE Estrada Dr: Dr. Juan Pablo Chawla MD HEADER OPERATION: Laparoscopic, cholecystectomy with IOC PRE-OP DIAGNOSIS: Biliary obstruction, cholecystitis TISSUE SUBMITTED: Gallbladder MICROSCOPIC DIAGNOSIS Gallbladder, cholecystectomy: Cholesterolosis, chronic cholecystitis and cholelithiasis. AM. 12/25/2023 MICROSCOPIC DESCRIPTION Slides are reviewed. GROSS DESCRIPTION Received is one container labeled with the patient's name and designated gallbladder. The specimen consists of a gallbladder measuring 6.5 cm in length and up to 3.0 cm in diameter. The external surface is pink-reyes, smooth and glistening for the most part. Focally it is granular, hemorrhagic and contains cautery artifact. The gallbladder contains reyes mucoid bile and multiple yellow mulberry stones measuring in aggregate 2.5 x 1.2 x 0.5 cm and 0.4 to 0.5 cm in greatest dimension. The mucosa is bile-stained and without any mass lesions. The gallbladder wall measures up to 0.5 cm in thickness. Engineering Operations Leader sections from the gallbladder and the cystic duct are submitted in one cassette. / SJ: 12/22/2023 TC:3 CPT: 57630 Patient Age/Sex Location Account Attending Physician LIBBY BEARDEN 33/ [facility] [id number] Dr. Juan Pablo Chawla MD Signed (signature on file) Dr. Jian Hinojosa DO 12/25/23 1401 Normal [facility] Comment on above: Performed By: #### P SUIII ####[facility] [id number] [place], [place], [address] Comprehensive Metabolic Prof il 12-15-2023 Albumin [Mass/Vol] 3.4 g/dL Normal 3.2-5.0 [facility] Comment on above: Performed By: #### L 500.4055 #### [facility] [address] [place], [address] Albumin/Globulin [Mass ratio] 0.9 {ratio} Normal 0.9-2.4 [facility] Comment on above: Performed By: #### L 500.4050 #### [facility] [address] [place], [address] ALK P 204 U/L High 45-117 [facility] Comment on above: Performed By: #### L 500.4050 #### [facility] [address] [place], [address] ALT [Catalytic activity/Vol] 750 U/L High 13-56 [facility] Comment on above: Performed By: #### L 500.4050 #### [facility] [address] [place], [address] AST [Catalytic activity/Vol] 384 U/L High 15-37 [facility] Comment on above: Performed By: #### L 500.4050 #### [facility] [address] [place], [address] Bilirubin [Mass/Vol] 2.30 mg/dL High 0.20-1.00 [facility] Comment on above: Result Comment: For patients on eltrombopag therapy, use of Dimension Carmine TBIL is not recommended. Performed By: #### L 500.4050 #### [facility] [address] [place], [address] BUN/CRE 15.3 RATIO Normal 10-20 [facility] Comment on above: Performed By: #### L 500.4050 #### [facility] [address] [place], [address] CA,Total 9.2 mg/dL Normal 8.5-10.1 [facility] Comment on above: Performed By: #### L 500.4050 #### [facility] [address] [place], [address] Chloride [Moles/Vol] 104 mmol/L Normal 98-107 [facility] Comment on above: Performed By: #### L 500.4050 #### [facility] [address] [place], [address] CO2 [Moles/Vol] 29.0 mmol/L Normal 21.0-32.0 [facility] Comment on above: Performed By: #### L 500.4050 #### [facility] [address] [place], [address] Creatinine [Mass/Vol] 0.78 mg/dL Normal 0.55-1.02 [facility] Comment on above: Result Comment: The validity of the calculated GFR GFRAA in patients over 70 years has not been determined. Clinical correlation is essential. Performed By: #### L 500.4050 #### [facility] [address] [place], [address] EST GFR - AA 108 mL/min Normal >60 [facility] Center Comment on above: Result Comment: Afri can Citizen Of [place] GFR Calc Performed By: #### L 500.4050 #### [facility] [address] [place], [address] GAP 5 Normal 5-15 [facility] Comment on above: Performed By: #### L 500.4050 #### [facility] [address] [place], [address] GFR/1.73 sq M.predicted among non-blacks MDRD (S/P/Bld) [Vol rate/Area] 90 mL/min/{1.73_m2} Normal >60 [facility] Comment on above: Result Comment: Non- GFR Calc Performed By: #### L 500.4050 #### [facility] [address] [place], [address] Globulin (S) [Mass/Vol] 3.9 g/dL Normal 2.2-4.2 [facility] Comment on above: Performed By: #### L 500.4050 #### [facility] [address] [place], [address] Glucose [Mass/Vol] 103 mg/dL Normal 74-106 [facility] Comment on above: Result Comment: Fast ing Glucose result from 100 to 125 mg/dL suggests IMPAIRED HOMEOSTASIS per A.D.A. criteria. Performed By: #### L 500.4050 #### [facility] [address] [place], [address] Potassium [Moles/Vol] 3.6 mmol/L Normal 3.5-5.1 [facility] Comment on above: Performed By: #### L 500.4050 #### [facility] [address] [place], [address] Sodium [Moles/Vol] 138 mmol/L Normal 136-145 [facility] Comment on above: Performed By: #### L 500.4050 #### [facility] [address] [place], [address] T PROT 7.3 g/dL Normal 6.4-8.2 [facility] Comment on above: Performed By: #### L 500.4050 #### [facility] [address] [place], [address] Urea nitrogen [Mass/Vol] 12 mg/dL Normal 7-18 [facility] Comment on above: Performed By: #### L 500.4050 #### [facility] [address] [place], [address] 12 Lead EKGon 12-14-[address] [facility] Cardiovascular Services [address] [place] [address] 12 Lead EKG 12/14/23 1125 MR#: [id number] Acct: [id number] Name: LIBBY BEARDEN Rep #: [id number] : 1990 33 From: Jared Noel MD Attending Dr: Dr. Yang Fink MD Status : DIS IN Ordering Dr: Mina Hernandez MD Date: 12/14/23 Location: MS3 Sex: F C Admitted: 12/13/23 Test Reason : PREOP Blood Pressure : / mmHG Vent. Rate : 080 BPM Atrial Rate : 080 BPM P-R Int : 154 ms QRS Dur : 072 ms QT Int : 360 ms P-R-T Axes : 015 032 033 degrees QTc Int : 415 ms Normal sinus rhythm Normal ECG When compared with ECG of 02-AUG-2023 13:04, No significant change was found Confirmed by Jared Noel ([id number]), book or script editor SLY WAHL ([id number]) on 12/20/2023 2:03:26 PM Referred By: Landen Pelaez Confirmed By:Jared Noel 12/20/23 1403 Date Jared Noel MD CC: Dr. Mina Hernandez MD; Dr. Landen Pelaez MD; Dr. Yang Fink MD; Linda Walden MD Signed Normal [facility] CBC W/Diff, Automatedon 10- 0-2023 Absolute Lymph 1.28 X10 3/uL Normal 0.83-4.51 [facility] Comment on above: Performed By: #### L 100.0100, L500.4050 ####[facility] [address] [place], [address] Absolute Neut 4.3 X10 3/uL Normal 2.0-7.7 [facility] Comment on above: Performed By: #### L 100.0100, L500.4050 ####[facility] [address] [place], [address] Basophils/100 WBC (Bld) 0.5 % Normal 0-1 [facility] Comment on above: Performed By: #### L 100.0100, L500.4050 ####[facility] [address] [place], [address] Eosinophils/100 WBC (Bld) 1.4 % Normal 0-5 [facility] Comment on above: Performed By: #### L 100.0100, L500.4050 ####[facility] [address] [place], [address] Erythrocyte distribution width (RBC) [Ratio] 11.9 % Normal 11.6-14.6 [facility] Comment on above: Performed By: #### L 100.0100, L500.4050 ####[facility] [address] [place], [address] Hematocrit (Bld) [Volume fraction] 35.1 % Low 37-47 [facility] Comment on above: Performed By: #### L 100.0100, L500.4050 ####[facility] [address] [place], [address] Hemoglobin (Bld) [Mass/Vol] 11.8 g/dL Low 12.0-15.0 [facility] Comment on above: Performed By: #### L 100.0100, L500.4050 ####[facility] [address] [place], [address] IG% 0.500 Normal 0.0-0.9 [facility] Comment on above: Result Comment: IG% - Immature Granulocytes (promyelocytes, myelocytes and metamyelocytes) > 1% indicates that a LEFT SHIFT is Present. Performed By: #### L 100.0100, L500.4050 ####[facility] [address] [place], [address] Lymphocytes/100 WBC (Bld) 19.4 % Normal 19-41 [facility] Comment on above: Performed By: #### L 100.0100, L500.4050 ####[facility] [address] [place], [address] MCH (RBC) [Entitic mass] 30.7 pg Normal 27.0-32.0 [facility] Comment on above: Performed By: #### L 100.0100, L500.4050 ####[facility] [address] [place], [address] MCHC (RBC) [Mass/Vol] 33.6 g/dL Normal 32-36 [facility] Comment on above: Performed By: #### L 100.0100, L500.4050 ####[facility] [address] [place], [address] MCV (RBC) [Entitic vol] 91.4 fL Normal 81-99 [facility] Comment on above: Performed By: #### L 100.0100, L500.4050 ####[facility] [address] [place], [address] Monocytes/100 WBC (Bld) 13.3 % High 0-10 [facility] Comment on above: Performed By: #### L 100.0100, L500.4050 ####[facility] [address] [place], [address] Neutrophils/100 WBC (Bld) 64.9 % Normal 47-70 [facility] Comment on above: Performed By: #### L 100.0100, L500.4050 ####[facility] [address] [place], [address] Nucleated RBC (Bld) [#/Vol] 0 10*3/uL Normal 0-5 [facility] Comment on above: Performed By: #### L 100.0100, L500.4050 ####[facility] [address] [place], [address] Platelet mean volume (Bld) [Entitic vol] 10.4 fL Normal 6.2-12.0 [facility] Comment on above: Performed By: #### L 100.0100, L500.4050 ####[facility] [address] [place], [address] Platelets (Bld) [#/Vol] 364 10*3/uL Normal 150-450 [facility] Comment on above: Performed By: #### L 100.0100, L500.4050 ####[facility] [address] [place], [address] RBC (Bld) [#/Vol] 3.84 10*6/uL Low 4.2-5.4 [facility] Comment on above: Performed By: #### L 100.0100, L500.4050 ####[facility] [address] [place], [address] RDW SD 39.8 fl Normal 35.1-43.9 [facility] Comment on above: Performed By: #### L 100.0100, L500.4050 ####[facility] [address] [place], [address] WBC (Bld) [#/Vol] 6.6 10*3/uL Normal 4.4-11.0 [facility] Comment on above: Performed By: #### L 100.0100, L500.4050 ####[facility] [address] [place], [address] [facility] 12-14-2023 Albumin [Mass/Vol] 3.5 g/dL Normal 3.2-5.0 [facility] Comment on above: Performed By: #### L 100.0100, L500.4050 ####[facility] [address] [place], [address] Albumin/Globulin [Mass ratio] 0.9 {ratio} Normal 0.9-2.4 [facility] Comment on above: Performed By: #### L 100.0100, L500.4050 ####[facility] [address] [place], [address] ALK P 235 U/L High 45-117 [facility] Comment on above: Performed By: #### L 100.0100, L500.4050 ####[facility] [address] [place], [address] ALT [Catalytic activity/Vol] 573 U/L High 13-56 [facility] Comment on above: Performed By: #### L 100.0100, L500.4050 ####[facility] [address] [place], [address] AST [Catalytic activity/Vol] 427 U/L High 15-37 [facility] Comment on above: Performed By: #### L 100.0100, L500.4050 ####[facility] [address] [place], [address] Bilirubin [Mass/Vol] 8.30 mg/dL High 0.20-1.00 [facility] Comment on above: Result Comment: For patients on eltrombopag therapy, use of Dimension Carmine TBIL is not recommended. Performed By: #### L 100.0100, L500.4050 ####[facility] [address] [place], [address] BUN/CRE 12.4 RATIO Normal 10-20 [facility] Comment on above: Performed By: #### L 100.0100, L500.4050 ####[facility] [address] [place], [address] CA,Total 9.4 mg/dL Normal 8.5-10.1 [facility] Comment on above: Performed By: #### L 100.0100, L500.4050 ####[facility] [address] [place], [address] Chloride [Moles/Vol] 102 mmol/L Normal 98-107 [facility] Comment on above: Performed By: #### L 100.0100, L500.4050 ####[facility] [address] [place], [address] CO2 [Moles/Vol] 27.0 mmol/L Normal 21.0-32.0 [facility] Comment on above: Performed By: #### L 100.0100, L500.4050 ####[facility] [address] [place], [address] Creatinine [Mass/Vol] 0.64 mg/dL Normal 0.55-1.02 [facility] Comment on above: Result Comment: The validity of the calculated GFR GFRAA in patients over 70 years has not been determined. Clinical correlation is essential. Performed By: #### L 100.0100, L500.4050 ####[facility] [address] [place], [address] ECRCL 106.88 ml/min Normal [facility] Comment on above: Performed By: #### L 100.0100, L500.4050 ####[facility] [address] [place], [address] EST GFR - AA 136 mL/min Normal >60 [facility] Comment on above: Result Comment: Afri can Citizen [place] GFR Calc Performed By: #### L 100.0100, L500.4050 ####[facility] [address] [place], [address] GAP 8 Normal 5-15 [facility] Comment on above: Performed By: #### L 100.0100, L500.4050 ####[facility] [address] [place], [address] GFR/1.73 sq M.predicted among non-blacks MDRD (S/P/Bld) [Vol rate/Area] 113 mL/min/{1.73_m2} Normal >60 [facility] Comment on above: Result Comment: Non- GFR Calc Performed By: #### L 100.0100, L500.4050 ####[facility] [address] [place], [address] Globulin (S) [Mass/Vol] 3.8 g/dL Normal 2.2-4.2 [facility] Comment on above: Performed By: #### L 100.0100, L500.4050 ####[facility] [address] [place], [address] Glucose [Mass/Vol] 97 mg/dL Normal 74-106 [facility] Comment on above: Performed By: #### L 100.0100, L500.4050 ####[facility] [address] [place], [address] Potassium [Moles/Vol] 3.6 mmol/L Normal 3.5-5.1 [facility] Comment on above: Performed By: #### L 100.0100, L500.4050 ####[facility] [address] [place], [address] Sodium [Moles/Vol] 137 mmol/L Normal 136-145 [facility] Comment on above: Performed By: #### L 100.0100, L500.4050 ####[facility] [address] [place], [address] T PROT 7.3 g/dL Normal 6.4-8.2 [facility] Comment on above: Performed By: #### L 100.0100, L500.4050 ####[facility] [address] [place], [address] Urea nitrogen [Mass/Vol] 8 mg/dL Normal 7-18 [facility] Comment on above: Performed By: #### L 100.0100, L500.4050 ####[facility] [address] [place], [address] Consultation - Surgicalon Consultation - Surgical [facility] Medical Records Department [address] [place] [address] Consultation - Surgical 12/14/23 0818 MR#: [id number] Acct: [id number] Name: LIBBY BEARDEN Rep #: [id number] : 1990 33 From: Juan Pablo Chawla MD PCP: Linda Walden MD Status:ADM IN Location: ID3 [id number] Assessment Plan Assessment/Plan (1) Biliary obstruction: PLAN: Patient has biliary obstruction likely due to choledocholithiasis. She is having ERCP today. Dr. Pitt plans on placing a stent. This should preclude any further blockage in the interim and I will plan to remove her gallbladder next week. I discussed the procedure in detail with the patient. I discussed the risks, benefits, and alternatives of the procedure. I discussed the risks including but not limited to bleeding, infection, injury to surrounding organs such as the liver, bile duct, bowels. I did discuss the possibility of having to convert to an open procedure as well as the possibility that if any injuries occurred this may necessitate further surgery at a tertiary care center. Juan Pablo Chawla MD Pager: [facility] [address] [place] [address], [address] [place] [address] Office: HPI Consult Data Date of Consult: 12/14/23 HPI Narrative HPI Narrative: jorge SMITH a 33 F who presents with fever and epigastric pain radiating to the back. Patient was having nausea and vomiting as well. [facility] Medical History Gastric ulcer Medical History no medical history Home Medications ???Medication ???Instructions ???Recorded ???Last Taken ???Type omeprazole 20 mg capsule,delayed 20 mg PO DAILY #30 CAPSULES 08/02/23 12/13/23 Rx release norethin-ethinyl estradiol-iron 1 tab PO QDAY 12/13/23 12/12/23 History 0.8 mg-25 mcg(24)/75 mg(4) chew tablet ondansetron 8 mg disintegrating 8 mg PO Q8H PRN nausea 12/13/23 12/12/23 History tablet Allergy/AdvReac Type Severity Reaction Status Date / Time No Known Allergies Allergy Verified 12/13/23 13:59 Family History Other Hyperlipidemia Hypertension Surgical History no surgical history Social History Smoking Status: Never smoker alcohol intake: current alcohol intake frequency: a few times a week substance use type: does not use frequency: 1-2 times per week ROS Constitutional Constitutional: Reports anorexia and fever(s); Denies chills or fatigue Eyes Eyes: Denies blurry vision ENT HEENT: Denies abnormal hearing or neck pain Cardiovascular Cardiovascular: Denies chest pain Respiratory/Chest Respiratory/Chest: Denies cough or dyspnea Gastrointestinal Gastrointestinal: Reports abdominal pain, nausea and vomiting; Denies diarrhea or dysphagia Genitourinary Genitourinary: Denies change in urinary stream Musculoskeletal Musculoskeletal: Denies abnormal gait Integumentary Integumentary: Denies jaundice Neurologic Neurologic: Denies abnormal gait Psychiatric Psychiatric: Denies anxiety Endocrine Endocrinology: Denies flushing Hematologic/Lymphatic Hematologic/Lymphatic: Denies easy bleeding Physical Exam Const alert and oriented x3 HEENT normocephalic Eyes PERRL Resp normal respiratory effort Cardio Rate: regular rate Rhythm: regular rhythm GI soft to palpation and non-distended Palpation: tender Extremity normal to inspection Lab / Micro Data 12/14/23 06:15 12/14/23 06:15 Labs: Laboratory Results - last 24 hr 12/13/23 14:11: WBC 9.1, RBC 4.19 L, Hgb 13.1, Hct 39.3, MCV 93.8, MCH 31.3, MCHC 33.3, RDW Std Deviation 41.0, RDW Coeff of Remigio 11.9, Plt Count 416, MPV 10.8, Immature Gran % (Auto) 0.400, Neut % (Auto) 73.2 H, Lymph % (Auto) 16.1 L, [place] % (Auto) 9.8, Eos % (Auto) 0.3, Baso % (Auto) 0.2, Absolute Neuts (auto) 6.6, Absolute Lymphs (auto) 1.46, Nucleated RBC % 0, Sodium 135 L, Potassium 3.8, Chloride 98, Carbon Dioxide 26.0, Anion Gap 11, BUN 8, Creatinine 0.71, Estim Creat Clear Calc 97.32, Est GFR (MDRD) Af Amer 122, Est GFR (MDRD) Non-Af 101, BUN/Creatinine Ratio 11.3, Glucose 80, Calcium 10.1, Total Bilirubin 9.70 H, AST 318 H, ALT 445 H, Alkaline Phosphatase 253 H, Total Protein 8.5 H, Albumin 4.1, Globulin 4.4 H, Albumin/Globulin Ratio 0.9, Lipase 70, Serum , Qual NEGATIVE 12/13/23 14:34: Urine Color Yellow, Urine Clarity Sl. Cloudy, Urine pH 6.5, Ur Specific Vaughan 1.015, Urine Protein 30 H, Urine Glucose (UA) Normal, Urine Ketones 150 A*, Urine Occult Blood Negative, Urine Nitrite Positive H, Urine Bilirubin 6 H, Urine Urobilinogen 8 H, Ur Leukocyte Esterase 25 H, Urine RBC 0 SEEN, Urine WBC 0-5 SEEN, Ur (more content not included)... Normal [facility] Discharge Instructionon 12-04 Discharge Instruction [facility] Medical Records Department [address] [place] [address] Instructions for Home/Discharge Instructions 12/14/23 1547 MR#: [id number] Acct: [id number] Name: LIBBY BEARDEN Rep #: [id number] : 1990 33 From: Yang Fink MD PCP: Linda Walden MD Status:ADM IN Discharge Instructions Diet Discharge Diet: No restrictions Activity Discharge Activity: Return to Normal Activity Dressing / Incision Call your doctor if you observe: Fever of 101 or Higher, Shortness of breath, Dizziness, Fainting spells, Swelling in the ankles, Chest pain and Increased palpitations (irregular heartbeat) Follow Up Care Test Results: Test results from this visit will be discussed in further detail at your follow-up appointment, if applicable. Discharge Plan Admission Admit Date/Time: 12/13/23 15:40 Attending Provider: Yang Fink Primary Care Provider: Linda Walden Consulting Providers: Juan Pablo Chawla; Mike Morley Instructions Additional Instructions / Restrictions: Contact your PCP foot to evaluate your liver functions as well as her bilirubin with a CMP in the next couple of days. Discharge Orders/Prescriptions Prescriptions: New amoxicillin-pot clavulanate 875-125 mg tablet 1 tab PO BID Qty: 14 0RF Continued noreth-ethinyl estradiol-iron 0.8mg-25mcg(24) and 75 mg (4) tablet,chewable 1 tab PO QDAY ondansetron 8 mg tablet,disintegrating 8 mg PO Q8H PRN (Reason: nausea) 3 Days Qty: 10 0RF omeprazole 20 mg capsule,delayed release(DR/EC) 20 mg PO DAILY Qty: 30 0RF Referrals / Follow Up: Juan Pablo Chawla MD [Med Staff - Active Staff] - 12/21/23 1:45 pm (For surgery) Linda Walden MD [Primary Care Provider] - Within 1 Week Naman Wilkerson MD [Med Staff - Active Staff] - Pete Pitt DO [Med Staff - Active Staff] - Within 3 Months (6 weeks) Disposition Disposition (needs filled in before D/C Order can be placed): Home, Self Care 12/14/23 6730 Yang Fink MD CC: Dr. Juan Pablo Chawla MD; Dr. Mike Morley MD; Linda Walden MD Signed Normal [facility] ERCP Biliary/Pancreason 12-04 ERCP Biliary/Pancreas [facility] Imaging Services [address] [place] [address] ERCP Biliary/Pancreas MR#: [id number] Acct: [id number] Name: LIBBY BEARDEN Rep #: [id number] : 1990 F 33 From: Cheng Barnett MD PCP: Linda Walden MD Status: ADM IN Study: ERCP Biliary/Pancreas Date of Exam: 12/14/23 Exam# [id number] Ordering Dr: Pete Pitt DO [id number] EXAM: FL FLUOROSCOPY < 1 HOUR CLINICAL INDICATION: ERCP TECHNIQUE: 9 images fluoroscopic spot images were obtained. Fluoroscopic guidance was provided. COMPARISON: Abdominal ultrasound 12/13/2023. FINDINGS: Contrast injected into the biliary tree via cannulation of the common bile duct during ERCP. Balloon catheter utilized for removal of any common bile duct stones. Ultimately endobiliary stent catheter was left in place. See operative note for additional information. Total radiation dose of 14.34 mGy. A total of 111 seconds of fluoroscopy utilized. RAD/ERCP Biliary/Pancreas IMPRESSION: As above. Electronically Signed: Cheng Barnett MD at 14:04 EDT Reading Location ID and State: [facility] / [place] Tel , Service support , CC: Linda Walden MD; Pete Pitt DO Clinic Lpn: Signed Normal [facility] ERCP Reporton 12-14-[address] [facility] Medical Records Department [address] [place] [address] ERCP Report MR#: [id number] Acct: [id number] Name: LIBBY BEARDEN Rep #: [id number] : 1990 33 From: Pete Pitt DO PCP: Linda Walden MD Status:ADM IN Patient Name: Libby Bearden Procedure Date: 12/14/2023 11:26 AM Date of : 1990 Age: 33 Procedure: ERCP Indications: Abdominal pain of suspected biliary origin, Jaundice, Elevated liver enzymes Providers: Pete Pitt DO Referring MD: David Pelaez MD Medicines: Monitored Anesthesia Care Patient Profile: This is a 33 year old female. Refer to note in patient chart for documentation of history and physical. Patient has symptoms of acute abdominal cramping, acute right upper quadrant abdominal pain and acute jaundice. Complications: No immediate complications. Procedure: Pre-Anesthesia Assessment: - Prior to the procedure, a History and Physical was performed, and patient medications and allergies were reviewed. The patient is competent. The risks and benefits of the procedure and the sedation options and risks were discussed with the patient. All questions were answered and informed consent was obtained. Patient identification and proposed procedure were verified by the physician in the pre-procedure area. Mental Status Examination: alert and oriented. Airway Examination: normal oropharyngeal airway and neck mobility. Respiratory Examination: clear to auscultation. CV Examination: normal. Prophylactic Antibiotics: The patient does not require prophylactic antibiotics. Prior Anticoagulants: The patient has taken no anticoagulant or antiplatelet agents except for NSAID medication. ASA Grade Assessment: II - A patient with mild systemic disease. After reviewing the risks and benefits, the patient was deemed in satisfactory condition to undergo the procedure. The anesthesia plan was to use general anesthesia. Immediately prior to administration of medications, the patient was re-assessed for adequacy to receive sedatives. The heart rate, respiratory rate, oxygen saturations, blood pressure, adequacy of pulmonary ventilation, and response to care were monitored throughout the procedure. The physical status of the patient was re-assessed after the procedure. After obtaining informed consent, the scope was passed under direct vision. Throughout the procedure, the patient's blood pressure, pulse, and oxygen saturations were monitored continuously. The Duodenoscope was introduced through the mouth, and advanced to the duodenum and used to inject contrast into the bile duct and ventral pancreatic duct. The ERCP was accomplished without difficulty. The patient tolerated the procedure well. Scope In: 12:29:30 PM Scope Out: 12:46:48 PM Total Procedure Duration Time 0 hours 17 minutes 18 seconds Findings: The senior scrum master film was normal. The esophagus was successfully intubated under direct vision. The scope was advanced to a normal major papilla in the descending duodenum without detailed examination of the pharynx, larynx and associated structures, and upper GI tract. The upper GI tract was grossly normal. A long 0.025 inch Jagwire was passed into the biliary tree. The short-nosed traction sphincterotome was passed over the guidewire and the bile duct was then deeply cannulated. Contrast was injected. I personally interpreted the pancreatic duct images. There was brisk flow of contrast through the ducts. Image quality was adequate. Contrast extended to the pancreatic duct. Opacification of the entire opacified area was successful. The maximum diameter of the ducts was 2 mm. The biliary pancreatic junction contained a single localized stenosis 2 mm in length. A 5 mm ventral pancreatic sphincterotomy was made with a traction (standard) sphincterotome using ERBE electrocautery. There was no post-sphincterotomy bleeding. To find object(s) the ventral pancreatic duct was swept with a 6 mm balloon starting at the pancreatic duct in the body of the pancreas. Nothing was found. A long 0.025 inch Jagwire was passed into the biliary tree. The short-nosed traction sphincterotome was passed over the guidewire and the bile duct was then deeply cannulated. Contrast was injected. The lower third of the main bile duct was completely obstructed by what appeared to be a stone. Opacification of the entire biliary tree was successful. The maximum diameter of the ducts was 9 mm. The lower third of the main bile duct contained one stone, which was 6 mm in diameter. The entire biliary tree was diffusely dilated, with a stone causing an obstruction. The largest diameter was 10 mm. A 5 mm biliary sphincterotomy was made with a monofilament traction (standard) sphincterotome using ERBE electrocautery. There was no post-sphincterotomy ble (more content not included)... Normal [facility] Lipaseon 12-14-2023 Lipase [Catalytic activity/Vol] 89 U/L High 13-75 [facility] Comment on above: Result Comment: Plea se note: LIPASE revised reference range effective 22. New Lipase methodology. Expected to produce lower values than the previous assay method. NEW Reference Range: 13 - 75 U/L Performed By: #### L 501.2450 ####[facility] [id number] [facility] [place], [address] MR/POSTOP.ANEon 12-14-2023 [facility] Medical Records Department [address] [place] [address] Anesthesia Postop Eval I 12/14/23 1304 MR#: [id number] Acct: [id number] Name: LIBBY BEARDEN Rep #: [id number] : 1990 33 From: Sage Pastrana PCP: Linda Walden MD Status:ADM IN Y Race: C Location: [place] [address] Anesthesia: Postop Eval I Current Vital Signs Temperature: 97.3 F Pulse Rate: 104 Blood Pressure: 113/76 Respiratory Rate: 16 Pulse Ox: 99 Oxygen Delivery Method: Room Air Assessment Airway patent: Yes Spontaneous unlabored respirations: Yes Mental status: Awake and Calm nausea: No Vomiting: No Anesthesia Complication: No Fluid Hydration Crystalloid volume administer (ml): 700 Total IV fluid infused: 700 Progress Note Anesthesia document: Postop Eval 1 completed: Yes 12/14/23 1305 Date Sage Guerrerojalilfléix Signature: Date CC: Signed Normal [facility] MR/[id number] 12-14-2023 MR/POSTOPAN2 [facility] Medical Records Department [address] [place] [address] Anesthesia Postop Eval II 12/14/23 1357 MR#: [id number] Acct: [id number] Name: LIBBY BEARDEN Rep #: [id number] : 1990 33 From: Mina Hernandez MD PCP: Linda Walden MD Status:ADM IN Y Race: C Location: [facility] [place] ER746-4 Anesthesia Postop Eval I Sum Postop Eval Completion status Anesthesia document: Postop Eval 1 completed: Yes Anesthesia Postop Eval I Summary Anesthesia Postop Eval I Summary: Anesthesia Postop Eval I: Assessment Summary Airway patent Yes 12/14/23 13:05 [email or web address] Spontaneous unlabored Yes 12/14/23 13:05 [email or web address] respirations Mental status Awake,Calm 12/14/23 13:05 [email or web address] nausea No 12/14/23 13:05 [email or web address] Vomiting No 12/14/23 13:05 [email or web address] Anesthesia Postop Eval I: Fluid Summary Crystalloid volume administer 700 12/14/23 13:05 [email or web address] (ml) Colloids volume administered ( ml) Blood Product volume administered (ml) Total IV fluid infused 700 12/14/23 13:05 [email or web address] Anesthesia Postop Eval I: Summary Notes Anesthesia Complication No 12/14/23 13:05 [email or web address] Anesthesia Complication Comment: Post-operative progress note Anesthesia: Postop Eval II Evaluation Mental status: Awake Pain Level: 0 nausea: No Vomiting: No 12/14/23 1357 Date Mina Hernandez MD Cosigner Signature: Date CC: Signed Normal [facility] Abdomen/Pelvis W IV Cont ONL Yon 12-13-2023 Abdomen/Pelvis W IV Cont ONLY [facility] Imaging Services [address] [place] [address] Abdomen/Pelvis W IV Cont ONLY MR#: [id number] Acct: [id number] Name: SULEIMANLIBBY [place] Rep #: [id number] : 1990 F 33 From: Ryder leblanc MD PCP: Linda Walden MD Status: REG ER Study: Abdomen/Pelvis W IV Cont ONLY Date of Exam: Exam# [id number] Ordering Dr: Landen Pelaez MD [id number] STUDY: CT ABDOMEN AND PELVIS WITH CONTRAST REASON FOR EXAM: Female, 33 years old. Upper abd pain RADIATION DOSAGE (If Supplied By Facility): CTDIvol = ( 15.80 ) mGy, DLP = ( 588.95 ) mGycm TECHNIQUE: Transaxial images were obtained from the dome of the diaphragm to the symphysis pubis without oral contrast. IV 75mL Isovue-370 was administered. Sagittal and coronal images were reconstructed. Individualized dose optimization techniques were used for this CT. COMPARISON: None. FINDINGS: The visualized lung bases are unremarkable. The visualized portions of the heart are within normal limits. Intrahepatic biliary ductal dilatation. The gallbladder is distended. Mild degree of bladder wall thickening. Dilatation of the common bile duct down to the head of the pancreas. No definite choledocholithiasis seen. Endoscopic correlation to rule out possible sphincter of Oddi abnormality recommend Normal spleen. Normal pancreas. Normal bilateral adrenal glands. Normal right kidney. Normal left kidney. Normal visualized stomach. Normal small intestine. Normal colon. The appendix is visualized and appears normal. Normal abdominal aorta. Normal inferior vena cava. Normal retroperitoneum. Normal urinary bladder. Normal abdominal wall. Normal osseous structures. Loss of the normal lumbar lordosis. CT/Abdomen/Pelvis W IV Cont ONLY IMPRESSION: Gallbladder is distended with dilated intrahepatic biliary ducts as well as dilated common bile duct down to the level of the ampulla of Vater. Correlation with ultrasound is recommended for further evaluation. A lesion in the region of the ampulla of Vater should be removed. Electronically Signed: Ryder Diamond MD at 14:54 EDT Reading Location ID and State: [facility] [place] , Service support , CC: Dr. Lanedn Pelaez MD; Linda Walden MD Clinic Lpn: Signed Normal [facility] CBC W/Diff, Automatedon 10-0 Absolute Lymph 1.46 X10 3/uL Normal 0.83-4.51 [facility] Comment on above: Performed By: #### L 100.0100, L700.6800, L501.2450, L500.4050 #### [facility] [address] [place], [place], [address] Absolute Neut 6.6 X10 3/uL Normal 2.0-7.7 [facility] Comment on above: Performed By: #### L 100.0100, L700.6800, L501.2450, L500.4050 #### [facility] [address] [place], [address] Basophils/100 WBC (Bld) 0.2 % Normal 0-1 [facility] Comment on above: Performed By: #### L 100.0100, L700.6800, L501.2450, L500.4050 #### [facility] [address] [place], [address] Eosinophils/100 WBC (Bld) 0.3 % Normal 0-5 [facility] Comment on above: Performed By: #### L 100.0100, L700.6800, L501.2450, L500.4050 #### [facility] [address] [place], [address] Erythrocyte distribution width (RBC) [Ratio] 11.9 % Normal 11.6-14.6 [facility] Comment on above: Performed By: #### L 100.0100, L700.6800, L501.2450, L500.4050 #### [facility] [address] [place], [address] Hematocrit (Bld) [Volume fraction] 39.3 % Normal 37-47 [facility] Comment on above: Performed By: #### L 100.0100, L700.6800, L501.2450, L500.4050 #### [facility] [address] [place], [address] Hemoglobin (Bld) [Mass/Vol] 13.1 g/dL Normal 12.0-15.0 [facility] Comment on above: Performed By: #### L 100.0100, L700.6800, L501.2450, L500.4050 #### [facility] [address] [place], [address] IG% 0.400 Normal 0.0-0.9 [facility] Comment on above: Result Comment: IG% - Immature Granulocytes (promyelocytes, myelocytes and metamyelocytes) > 1% indicates that a LEFT SHIFT is Present. Performed By: #### L 100.0100, L700.6800, L501.2450, L500.4050 #### [facility] [address] [place], [address] Lymphocytes/100 WBC (Bld) 16.1 % Low 19-41 [facility] Comment on above: Performed By: #### L 100.0100, L700.6800, L501.2450, L500.4050 #### [facility] [address] [place], [address] MCH (RBC) [Entitic mass] 31.3 pg Normal 27.0-32.0 [facility] Comment on above: Performed By: #### L 100.0100, L700.6800, L501.2450, L500.4050 #### [facility] [address] [place], [address] MCHC (RBC) [Mass/Vol] 33.3 g/dL Normal 32-36 [facility] Comment on above: Performed By: #### L 100.0100, L700.6800, L501.2450, L500.4050 #### [facility] [address] [place], [address] MCV (RBC) [Entitic vol] 93.8 fL Normal 81-99 [facility] Comment on above: Performed By: #### L 100.0100, L700.6800, L501.2450, L500.4050 #### [facility] [address] [place], [address] Monocytes/100 WBC (Bld) 9.8 % Normal 0-10 [facility] Comment on above: Performed By: #### L 100.0100, L700.6800, L501.2450, L500.4050 #### [facility] [address] [place], [address] Neutrophils/100 WBC (Bld) 73.2 % High 47-70 [facility] Comment on above: Performed By: #### L 100.0100, L700.6800, L501.2450, L500.4050 #### [facility] [address] [place], [address] Nucleated RBC (Bld) [#/Vol] 0 10*3/uL Normal 0-5 [facility] Comment on above: Performed By: #### L 100.0100, L700.6800, L501.2450, L500.4050 #### [facility] [address] [place], [address] Platelet mean volume (Bld) [Entitic vol] 10.8 fL Normal 6.2-12.0 [facility] Comment on above: Performed By: #### L 100.0100, L700.6800, L501.2450, L500.4050 #### [facility] [address] [place], [address] Platelets (Bld) [#/Vol] 416 10*3/uL Normal 150-450 [facility] Comment on above: Performed By: #### L 100.0100, L700.6800, L501.2450, L500.4050 #### [facility] [address] [place], [address] RBC (Bld) [#/Vol] 4.19 10*6/uL Low 4.2-5.4 [facility] Comment on above: Performed By: #### L 100.0100, L700.6800, L501.2450, L500.4050 #### [facility] [address] [place], [address] RDW SD 41.0 fl Normal 35.1-43.9 [facility] Comment on above: Performed By: #### L 100.0100, L700.6800, L501.2450, L500.4050 #### [facility] [address] [place], [address] WBC (Bld) [#/Vol] 9.1 10*3/uL Normal 4.4-11.0 [facility] Comment on above: Performed By: #### L 100.0100, L700.6800, L501.2450, L500.4050 #### [facility] [address] [place], [address] Comprehensive Metabolic Prof wion 12-13-2023 Albumin [Mass/Vol] 4.1 g/dL Normal 3.2-5.0 [facility] Comment on above: Performed By: #### L 100.0100, L700.6800, L501.2450, L500.4050 #### [facility] [address] [place], [address] Albumin/Globulin [Mass ratio] 0.9 {ratio} Normal 0.9-2.4 [facility] Comment on above: Performed By: #### L 100.0100, L700.6800, L501.2450, L500.4050 #### [facility] [address] [place], [address] ALK P 253 U/L High 45-117 [facility] Comment on above: Performed By: #### L 100.0100, L700.6800, L501.2450, L500.4050 #### [facility] [address] [place], [address] ALT [Catalytic activity/Vol] 445 U/L High 13-56 [facility] Comment on above: Performed By: #### L 100.0100, L700.6800, L501.2450, L500.4050 #### [facility] [address] [place], [address] AST [Catalytic activity/Vol] 318 U/L High 15-37 [facility] Comment on above: Performed By: #### L 100.0100, L700.6800, L501.2450, L500.4050 #### [facility] [address] [place], [address] Bilirubin [Mass/Vol] 9.70 mg/dL High 0.20-1.00 [facility] Comment on above: Result Comment: For patients on eltrombopag therapy, use of Dimension Carmine TBIL is not recommended. Performed By: #### L 100.0100, L700.6800, L501.2450, L500.4050 #### [facility] [address] [place], [address] BUN/CRE 11.3 RATIO Normal 10-20 [facility] Comment on above: Performed By: #### L 100.0100, L700.6800, L501.2450, L500.4050 #### [facility] [address] [place], [address] CA,Total 10.1 mg/dL Normal 8.5-10.1 [facility] Comment on above: Performed By: #### L 100.0100, L700.6800, L501.2450, L500.4050 #### [facility] [address] [place], [address] Chloride [Moles/Vol] 98 mmol/L Normal 98-107 [facility] Comment on above: Performed By: #### L 100.0100, L700.6800, L501.2450, L500.4050 #### [facility] [address] [place], [address] CO2 [Moles/Vol] 26.0 mmol/L Normal 21.0-32.0 [facility] Comment on above: Performed By: #### L 100.0100, L700.6800, L501.2450, L500.4050 #### [facility] [address] [place], [address] Creatinine [Mass/Vol] 0.71 mg/dL Normal 0.55-1.02 [facility] Comment on above: Result Comment: The validity of the calculated GFR GFRAA in patients over 70 years has not been determined. Clinical correlation is essential. Performed By: #### L 100.0100, L700.6800, L501.2450, L500.4050 #### [facility] [address] [place], [address] ECRCL 97.32 ml/min Normal [facility] Comment on above: Performed By: #### L 100.0100, L700.6800, L501.2450, L500.4050 #### [facility] [address] [place], [address] EST GFR - AA 122 mL/min Normal >60 [facility] Comment on above: Result Comment: Afri can Citizen Of [place] GFR Calc Performed By: #### L 100.0100, L700.6800, L501.2450, L500.4050 #### [facility] [address] [place], [address] GAP 11 Normal 5-15 [facility] Comment on above: Performed By: #### L 100.0100, L700.6800, L501.2450, L500.4050 #### [facility] [address] [place], [address] GFR/1.73 sq M.predicted among non-blacks MDRD (S/P/Bld) [Vol rate/Area] 101 mL/min/{1.73_m2} Normal >60 [facility] Comment on above: Result Comment: Non- GFR Calc Performed By: #### L 100.0100, L700.6800, L501.2450, L500.4050 #### [facility] [address] [place], [address] Globulin (S) [Mass/Vol] 4.4 g/dL High 2.2-4.2 [facility] Comment on above: Performed By: #### L 100.0100, L700.6800, L501.2450, L500.4050 #### [facility] [address] [place], [address] Glucose [Mass/Vol] 80 mg/dL Normal 74-106 [facility] Comment on above: Performed By: #### L 100.0100, L700.6800, L501.2450, L500.4050 #### [facility] [address] [place], [address] Potassium [Moles/Vol] 3.8 mmol/L Normal 3.5-5.1 [facility] Comment on above: Performed By: #### L 100.0100, L700.6800, L501.2450, L500.4050 #### [facility] [address] [place], [address] Sodium [Moles/Vol] 135 mmol/L Low 136-145 [facility] Comment on above: Performed By: #### L 100.0100, L700.6800, L501.2450, L500.4050 #### [facility] [address] [place], [address] T PROT 8.5 g/dL High 6.4-8.2 [facility] Comment on above: Performed By: #### L 100.0100, L700.6800, L501.2450, L500.4050 #### [facility] [address] [place], [address] Urea nitrogen [Mass/Vol] 8 mg/dL Normal 7-18 [facility] Comment on above: Performed By: #### L 100.0100, L700.6800, L501.2450, L500.4050 #### [facility] [address] [place], [address] Emergency Department Summary on 12-13-2023 Emergency Department Summary [facility] Medical Records Department [address] [place] [address] Emergency Department Summary 12/13/23 MR#: [id number] Acct: [id number] Name: LIBBY BEARDEN Rep #: [id number] : 1990 33 From: Landen Pelaez MD PCP: Linda Walden MD Status:ADM IN Location: [facility] [place] ZB883-5 HPI HPI - GI History of Present Illness Chief Complaint: Chest Pain Detail of Chief Complaint: Epigastric abdominal pain radiating in the chest. Informant: patient Abdominal Pain/Flank Pain Onset: Weeks Context: Gradual Onset Timing: Continuous Quality: Aching and Burning Location: Epigastric and See Diagram (Radiates into chest and back.) Current Severity: Mild Maximum Severity: Moderate Worsened by: Food Relieved by: Nothing Nausea/Vomiting/Emesis GI Symptom: Positive for Nausea and Vomiting Onset: Days Severity: Mild Diarrhea/Melena/Hematochez ia GI Symptom: Negative for Diarrhea, Melena or Hematochezia Associated Symptoms Associated Symptoms: Negative for Dysuria, Frequency, Hematuria or Urgency LMP: 3 weeks ago Narrative Narrative: 33-year-old healthy female no seen past medical history. No seen prior abdominal surgeries. States 2 weeks ago started in epigastric Randy pain radiating her chest and back. Primary care physician's office started her on omeprazole twice a day, Carafate 4 times a day and Zofran. Sincerity she has had nausea vomiting with difficulty keeping anything down. No diarrhea. No dysuria. She has had low-grade fevers of 100 201. Denies any vaginal bleeding or discharge. Last menstrual period was about 3 weeks ago. She has had a recent workup for chest pain and it was negative. Prior similar symptoms: No Recent Illness/Hospitalization: No PFSH PFSH Medical History Gastric ulcer Medical History no medical history no medical history Home Medications ???Medication ???Instructions ???Recorded ???Last Taken ???Type omeprazole 20 mg capsule,delayed 20 mg PO DAILY #30 CAPSULES 08/02/23 12/13/23 Rx release norethin-ethinyl estradiol-iron 1 tab PO QDAY 12/13/23 12/12/23 History 0.8 mg-25 mcg(24)/75 mg(4) chew tablet ondansetron 8 mg disintegrating 8 mg PO Q8H PRN nausea 12/13/23 12/12/23 History tablet Allergy/AdvReac Type Severity Reaction Status Date / Time No Known Allergies Allergy Verified 12/13/23 13:59 Family History Other Hyperlipidemia Hypertension Social History Smoking Status: Never smoker alcohol intake: current alcohol intake frequency: a few times a week substance use type: does not use frequency: 1-2 times per week ROS ROS ED ROS Narrative Epigastric abdominal pain. Nausea and vomiting. Intermittent fever. Constitutional Constitutional ED: Reports chills and fever(s) ENT ENT ED: Denies ear pain Cardiovascular Cardiovascular: Reports chest pain Respiratory/Chest Respiratory/Chest: Denies cough or dyspnea Gastrointestinal Gastrointestinal: Reports abdominal pain, nausea and vomiting; Denies constipation, diarrhea or melena Genitourinary Genitourinary ED: Denies dysuria or hematuria Musculoskeletal Musculoskeletal: Reports back pain; Denies arthralgias Neurologic Neurologic: Denies headache(s) Psychiatric Psychiatric: Denies anxiety Endocrine Endocrinology: Denies polydipsia Hematologic/Lymphatic Hematologic/Lymphatic: Denies easy bleeding Allergic/Immunologic Allergic/Immunologic ED: Denies mouth swelling EXAM Physical Exam Narrative Exam Narrative: 33-year-old female vital signs stable afebrile. Pulse ox 9% on room air no hypoxia. No distress. Sitting upright in bed. Clinically looks well. H EENT exam unremarkable. Mytrex membranes. Neck nontender no lymphadenopathy. Lungs clear to auscultation bilateral. Heart regular rate and rhythm rate about 80 no murmur. Chest wall ribs nontender. Back nontender. No reproducible pain. Abdomen soft nondistended normal bowel sounds no peritoneal signs. Epigastric reproducible pain. Right upper or right lower quadrant unremarkable. No hernia or mass. No distention or obstruction. Soft. Flat abdomen. Moving all 4 extremities. Nontender no edema. She is awake and alert. No focal motor deficits. Const Vital Signs: 12/13/23 13:57 12/13/23 14:39 12/13/23 14:55 Temperature 98.1 F Temperature Source Oral Pulse Rate 81 76 Respiratory Rate 16 16 Respiratory Effort Normal Non-Labored Blood Pressure 141/94 H 131/85 H Blood Pressure Mean 109 100 Pulse Ox 100 97 Oxygen Delivery Method Room Air Room Air 12/13/23 15:34 Temperature 98.2 F Temperature Source Pulse Rate 91 Respiratory Rate 18 Respiratory E (more content not included)... Normal [facility] Gallbladderon 12-13-2023 Gallbladder [facility] Imaging Services [address] [place], [place] [address] Gallbladder MR#: [id number] Acct: [id number] Name: LIBBY BEARDEN Rep #: [id number] : 1990 F 33 From: Dontrell Alcala DO PCP: Linda Walden MD Status: ADM IN Study: Gallbladder Date of Exam: 12/13/23 Exam# [id number] Ordering Dr: Landen Pelaez MD [id number] INDICATION: biliary obstruction and pain EXAMINATION: Ultrasound US Abdomen RUQ (limited) TECHNIQUE: Galan-scale and color Doppler imaging was performed of the abdomen. COMPARISON: FINDINGS: LIVER: There is normal echotexture measuring 17.1 cm. No focal hepatic lesion. No intrahepatic biliary ductal dilatation. There is no free fluid. GALLBLADDER AND BILIARY TREE: Cholelithiasis and sludge. No pericholecystic fluid. Borderline gallbladder wall thickening is demonstrated. The proximal common bile duct measures 9 mm, which is dilated.. SONOGRAPHIC GERMAIN''S SIGN: Positive. PANCREAS: No focal abnormality is demonstrated in the pancreas. No pancreatic ductal dilatation. RIGHT KIDNEY: 11.0 x 5.7 x 5.0 cm. The cortex is 15 mm. There is no hydronephrosis. No shadowing calculus, focal lesion, or perinephric collection is demonstrated. VESSELS: Submitted longitudinal images of the intra-abdominal aorta demonstrate no gross abnormalities and are unremarkable. The IVC is patent. US/Gallbladder IMPRESSION: Cholelithiasis with borderline gallbladder wall thickness. Dilated common bile duct. Positive sonographic Germain''s sign. Electronically Signed: Dontrell Alcala DO at 18:28 EDT Reading Location ID and State: [facility] [place] Tel [phone], Service support , CC: Dr. Landen Pelaez MD; Linda Walden MD Clinic Lpn: Signed Normal [facility] Gastroenterology Visit Repor ton 12-13-2023 Gastroenterology Visit Report [facility] [address] 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 Is patient in pain?: Yes Allergies No Known Allergies Allergy (Verified 12/13/23 13:59) Medications ???Medication ???Instructions ???Recorded ???Confirmed ???Type omeprazole 20 mg capsule,delayed 20 mg PO DAILY #30 CAPSULES 08/02/23 12/13/23 Rx release norethin-ethinyl estradiol-iron 1 tab PO QDAY 12/13/23 12/13/23 History 0.8 mg-25 mcg(24)/75 mg(4) chew tablet Post menopausal: No Have you fallen in the past year?: No Nurse's Note: pain in back and upper chest region 7 out of 10 [facility] Social History (Updated 12/13/23 @ 13:26 by Kristen Villasenor) Smoking Status: Never smoker alcohol intake: current alcohol intake frequency: a few times a week substance use type: does not use frequency: 1-2 times per week HPI HPI Chief Complaint: epigastric pain Details: LIBBY BEARDEN, is a 33 F who presents to the office today for establishment with [facility]. Pt has been having severe epigastric pain for the past couple of days. She has been unable to eat for 3 days due to pain, nausea and vomiting. She has not had her gallbladder removed. She has not eaten so she is unable to vomit but has been dry heaving. She also mentions that she had a formed black stool a couple of days ago. She went to her PCP and was put on Carafate but is no longer taking it. She recalls a similar episode this in July 2023 which prompted her to go to the ED. She had work up for chest pain and was given omeprazole and sent home. She recently noticed her sclera turning yellow. ROS Const Constitutional: Positive for fatigue, fever(s) and weight change Eyes Eyes: No change in vision ENT ENT: No abnormal hearing, difficulty swallowing, mouth lesions, tongue swelling or throat swelling Resp Respiratory: No cough or shortness of breath Cardio Cardiology: No chest pain at rest, chest pain with exertion, shortness of breath or dyspnea on exertion Gastro GI: Positive for abdominal pain, heartburn, nausea/dyspepsia and vomiting; No difficulty swallowing Genitourinary-Female: No difficulty urinating or burning urination Musc Musculoskeletal: Positive for back pain Skin Skin: No hair loss in leg, yellowing of the eye, itchy eyes, rash, skin ulcer or skin swelling Neuro Neurology: No abnormal hearing, abnormal movements, confusion, unsteady gait/balance or memory loss Psych Psychiatric: No anxiety, No confusion and No memory loss Endo Endocrine: Positive for fatigue and weight change Aller/Imm Allergy/Immunologic: No itchy eyes, throat swelling or tongue swelling Laz/Lymp Hematologic/Lymphatic: No easy bleeding, easy bruising or enlarged lymph nodes Exam Const General: cooperative and ill appearing Nutritional Appearance: average body habitus and well nourished HENMT Head: normal to inspection Ears: hearing grossly normal bilaterally Nose: external nose normal Face and sinus: normal facial exam Mouth: oral mucosae normal Throat: posterior oropharynx normal Eyes General: appearance normal, both eyes and all related structures Sclera: sclerae normal and scleral abnormality (scleral icterus ) bilaterally Neck Neck: normal visual inspection Chest Chest palpation inspection: normal inspection of the chest and normal palpation of entire chest wall Resp Effort Inspection: normal respiratory effort GI Inspection: normal to inspection Auscultation: normal bowel sounds Percussion: normal to percussion Palpation: no hepatosplenomegaly Skin General: no rashes or lesions noted and jaundice Neuro General: patient alert Extrem General: normal to inspection Psych Affect: normal affect Assessment and Plan Assessment and Plan (1) Upper abdominal pain: (2) Epigastric abdominal pain: Status: Acute Plan: Pt is a 33 yo female here today for evaluation of acute epigastric pain radiating to her back, black stool, and n/v. She has been unable to eat food since Monday and continues to have nausea and dry heaving. She has not had her gallbladder removed. She had a similar episode in July of 2023 but this eventually resolved. On exam, her skin is visibly jaundice and she has scleral icterus. I have concern for cholecystitis, choledocholithiasis or gallstone pancreatitis. I recommended she go to the ER vs me ordering stat imaging and labs. She is a agreeable to this pl (more content not included)... Normal [facility] H AND P Exam - Hospitaliston 12-13-2023 H&P Exam - Hospitalist [facility] Medical Records Department [address] [place] [address] H P Exam - Hospitalist 12/13/23 1533 MR#: [id number] Acct: [id number] Name: LIBBY BEARDEN Rep #: [id number] : 1990 33 From: Mike Morley MD PCP: Linda Walden MD Status:ADM IN Location: [facility] [place] [id number] HPI - General General Date of Admission: 12/13/23 Date of Service: 12/13/23 Chief Complaint: Epigastric pain HPI Narrative jorge SMITH a 33 F with no significant medical history who presents emergency department with excruciating epigastric pain that radiated to her back. The pain is persistent. She describes the pain as sharp. The pain started about 2 weeks ago. Associated with her symptoms is nausea and vomiting. Also she reports a fever of 101 ???F at home. Patient was started on a PPI and Carafate at home. However his symptoms persisted. As her symptoms progressed she noticed yellowish discoloration of her skin in her eyes. Also her urine has been dark. [facility] Medical History Gastric ulcer Medical History no medical history Home Medications ???Medication ???Instructions ???Recorded ???Last Taken ???Type omeprazole 20 mg capsule,delayed 20 mg PO DAILY #30 CAPSULES 08/02/23 12/13/23 Rx release norethin-ethinyl estradiol-iron 1 tab PO QDAY 12/13/23 12/12/23 History 0.8 mg-25 mcg(24)/75 mg(4) chew tablet ondansetron 8 mg disintegrating 8 mg PO Q8H PRN nausea 12/13/23 12/12/23 History tablet Allergy/AdvReac Type Severity Reaction Status Date / Time No Known Allergies Allergy Verified 12/13/23 13:59 Family History Other Hyperlipidemia Hypertension no surgical history Social History Smoking Status: Never smoker alcohol intake: current alcohol intake frequency: a few times a week substance use type: does not use frequency: 1-2 times per week ROS ROS Narrative Pertinent positives and pertinent negatives as noted in HPI. All other systems were reviewed and are negative Vital Signs Vital Signs Vital Signs: 12/13/23 13:57 12/13/23 14:39 12/13/23 14:55 Temperature 98.1 F Temperature Source Oral Pulse Rate 81 76 Respiratory Rate 16 16 Respiratory Effort Normal Non-Labored Blood Pressure 141/94 H 131/85 H Blood Pressure Mean 109 100 Pulse Ox 100 97 Oxygen Delivery Method Room Air Room Air Weight Weight: 64.864 kg Body Mass Index (BMI) 24.5 Physical Exam Narrative Physical exam: General: Well-nourished, well-developed. Head: Normocephalic, atraumatic, no tenderness Eyes: Scleral icterus. Vision is grossly intact. EOMI ENT, no trauma, moist mucous membranes, no rhinorrhea Neck: Nontender, No thyromegaly. CVS: Regular rate and rhythm. S1-S2 present. No murmur, gallop or rub. Respiratory : clear to auscultation bilaterally, chest wall nontender Abdomen: Soft, nondistended, normal bowel sounds, no masses : Deferred Back: Nontender, no CVA tenderness, no midline spinal tenderness, deformities, step-offs Extremities: Nontender full range of motion, no trauma Skin: Jaundice, no trauma, abrasions Neuro: Alert, oriented, cranial nerves II through XII grossly intact. Psychiatry: Normal mood. Normal affect. Not depressed. Not anxious. Results Lab / Micro Data 12/13/23 14:11 12/13/23 14:11 Labs: Laboratory Results - last 24 hr 12/13/23 14:11: WBC 9.1, RBC 4.19 L, Hgb 13.1, Hct 39.3, MCV 93.8, MCH 31.3, MCHC 33.3, RDW Std Deviation 41.0, RDW Coeff of Remigio 11.9, Plt Count 416, MPV 10.8, Immature Gran % (Auto) 0.400, Neut % (Auto) 73.2 H, Lymph % (Auto) 16.1 L, [place] % (Auto) 9.8, Eos % (Auto) 0.3, Baso % (Auto) 0.2, Absolute Neuts (auto) 6.6, Absolute Lymphs (auto) 1.46, Nucleated RBC % 0, Sodium 135 L, Potassium 3.8, Chloride 98, Carbon Dioxide 26.0, Anion Gap 11, BUN 8, Creatinine 0.71, Estim Creat Clear Calc 97.32, Est GFR (MDRD) Af Amer 122, Est GFR (MDRD) Non-Af 101, BUN/Creatinine Ratio 11.3, Glucose 80, Calcium 10.1, Total Bilirubin 9.70 H, AST 318 H, ALT 445 H, Alkaline Phosphatase 253 H, Total Protein 8.5 H, Albumin 4.1, Globulin 4.4 H, Albumin/Globulin Ratio 0.9, Lipase 70, Serum , Qual NEGATIVE 12/13/23 14:34: Urine Color Yellow, Urine Clarity Sl. Cloudy, Urine pH 6.5, Ur Specific Vaughan 1.015, Urine Protein 30 H, Urine Glucose (UA) Normal, Urine Ketones 150 A*, Urine Occult Blood Negative, Urine Nitrite Positive H, Urine Bilirubin 6 H, Urine Urobilinogen 8 H, Ur Leukocyte Esterase 25 H, Urine RBC 0 SEEN, Urine WBC 0-5 SEEN, Ur Squamous Epith Cells 0-5 SEEN, Urine Bacteria 1+, Urine Mucus 0 SEEN Imaging Radiology Impression Abdomen/Pelvis CT 12/13/23 14:13 IMPRESSION: Gallbl (more content not included)... Normal [facility] Lipaseon 12-13-2023 Lipase [Catalytic activity/Vol] 70 U/L Normal 13-75 [facility] Comment on above: Result Comment: Mak doyle note: LIPASE revised reference range effective 22. New Lipase methodology. Expected to produce lower values than the previous assay method. NEW Reference Range: 13 - 75 U/L Performed By: #### L 100.0100, L700.6800, L501.2450, L500.4050 #### [facility] [address] [place], [address] MR/CON.PCM.GIon 12-13-2023 MR/CON.PCM.GI [facility] Medical Records Department [address] [place] [address] Consultation - GI 12/13/23 1829 MR#: [id number] Acct: [id number] Name: LIBBY BEARDEN Rep #: [id number] : 1990 33 From: Pete Friend DO PCP: Linda Walden MD Status:DIS IN Location: [facility] [place] [id number] HPI Consult Data Date of Consult: 12/13/23 HPI Narrative Reason for Consultation: Jaundice, fever and hepatitis HPI Narrative: jorge SMITH as33 F with no significant medical history who presents emergency department with excruciating epigastric pain that radiated to her back. The pain is persistent. She describes the pain as sharp. The pain started about 2 weeks ago. Associated with her symptoms is nausea and vomiting. Also she reports a fever of 101 ???F at home. Patient was started on a PPI and Carafate at home. However his symptoms persisted. As her symptoms progressed she noticed yellowish discoloration of her skin in her eyes. Also her urine has been dark. She was seen in the gastrology clinic today and was told to come over to the ED. She was afebrile in the ED and normotensive with a blood pressure of 138/97 and a pulse of 86, respiratory rate of 18, temperature 98.2 and satting 98% on room air. Labs in the ED : WBC 9.1, RBC 4.19 L, Hgb 13.1, Hct 39.3, MCV 93.8, MCH 31.3, MCHC 33.3, RDW Std Deviation 41.0, RDW Coeff of Remigio 11.9, Plt Count 416 Sodium 135 L, Potassium 3.8, Chloride 98, Carbon Dioxide 26.0, Anion Gap 11, BUN 8, Creatinine 0.71, Glucose 80, Calcium 10.1, Total Bilirubin 9.70 H, AST 318 H, ALT 445 H, Alkaline Phosphatase 253 H, Total Protein 8.5 H, Albumin 4.1, Globulin 4.4 H, Urine Color Yellow, Urine Clarity Sl. Cloudy, Urine pH 6.5, Ur Specific Vaughan 1.015, Urine Protein 30 H, Urine Glucose (UA) Normal, Urine Ketones 150 A*, Urine Occult Blood Negative, Urine Nitrite Positive H, Urine Bilirubin 6 H, Urine Urobilinogen 8 H, Ur Leukocyte Esterase 25 H, Urine RBC 0 SEEN, Urine WBC 0-5 SEEN, Ur Squamous Epith Cells 0-5 SEEN, Urine Bacteria 1+, Urine Mucus 0 SEEN Ultrasound in the emergency room FINDINGS: LIVER: There is normal echotexture measuring 17.1 cm. No focal hepatic lesion. No intrahepatic biliary ductal dilatation. There is no free fluid. GALLBLADDER AND BILIARY TREE: Cholelithiasis and sludge. No pericholecystic fluid. Borderline gallbladder wall thickening is demonstrated. The proximal common bile duct measures 9 mm, which is dilated.. SONOGRAPHIC GERMAIN''S SIGN: Positive. PANCREAS: No focal abnormality is demonstrated in the pancreas. No pancreatic ductal dilatation. RIGHT KIDNEY: 11.0 x 5.7 x 5.0 cm. The cortex is 15 mm. There is no hydronephrosis. No shadowing calculus, focal lesion, or perinephric collection is demonstrated. VESSELS: Submitted longitudinal images of the intra-abdominal aorta demonstrate no gross abnormalities and are unremarkable. The IVC is patent. US/Gallbladder IMPRESSION: Cholelithiasis with borderline gallbladder wall thickness. Dilated common bile duct. Positive sonographic Germain''s sign. CT scan abdomen pelvis in the ED: FINDINGS: The visualized lung bases are unremarkable. The visualized portions of the heart are within normal limits. Intrahepatic biliary ductal dilatation. The gallbladder is distended. Mild degree of bladder wall thickening. Dilatation of the common bile duct down to the head of the pancreas. No definite choledocholithiasis seen. Endoscopic correlation to rule out possible sphincter of Oddi abnormality recommend Normal spleen. Normal pancreas. Normal bilateral adrenal glands. Normal right kidney. Normal left kidney. Normal visualized stomach. Normal small intestine. Normal colon. The appendix is visualized and appears normal. Normal abdominal aorta. Normal inferior vena cava. Normal retroperitoneum. Normal urinary bladder. Normal abdominal wall. Normal osseous structures. Loss of the normal lumbar lordosis. CT/Abdomen/Pelvis W IV Cont ONLY IMPRESSION: Gallbladder is distended with dilated intrahepatic biliary ducts as well as dilated common bile duct down to the level of the ampulla of Vater. Correlation with ultrasound is recommended for further evaluation. A lesion in the region of the ampulla of Vater should be removed. [facility] Medical History Gastric ulcer Medical History no medical history Home Medications ???Medication ???Instructions ???Recorded ???Last Taken ???Type omeprazole 20 mg capsule,delayed 20 mg PO DAILY #30 CAPSULES 08/02/23 12/13/23 Rx release norethin-ethinyl estradiol-iron 1 tab PO QDAY 12/13/23 12/12/23 History 0.8 mg-25 mcg(24)/75 mg(4) chew tablet ondansetron 8 mg disintegrating 8 mg PO Q8H PRN nausea 12/12 (more content not included)... Normal [facility] ,Serum,hCG Quali.on 12-13-2023 HCG, SERUM QUAL Negative Normal [facility] Comment on above: Performed By: #### L 100.0100, L700.6540, L501.0980, L500.4050 #### [facility] [address] [place], [address] Urinalysis, Completeon 12-12 BACTERIA 1+ /hpf Normal None Seen [facility] Comment on above: Order Comment: CLEAN CATCH Performed By: #### L 400.0001 #### [facility] [address] [place], [address] WBC 0-5 SEEN Normal 0-5 [facility] Comment on above: Order Comment: CLEAN CATCH Performed By: #### L 400.0001 #### [facility] [address] [place], [address] EPI,SQUAMOUS 0-5 SEEN Normal 5-10 [facility] Comment on above: Order Comment: CLEAN CATCH Performed By: #### L 400.0001 #### [facility] [address] [place], [address] Mucus Ql (Urine sed) 0 SEEN Normal [facility] Comment on above: Order Comment: CLEAN CATCH Performed By: #### L 400.0001 #### [facility] [address] [place], [address] RBC 0 SEEN Normal 0-5 [facility] Comment on above: Order Comment: CLEAN CATCH Performed By: #### L 400.0001 #### [facility] [address] [place], [address] CNOVon 10-31-2017 [facility] LIBBY MUÑIZ ([id number]) 1990 FDate Time Provider Department10/31/17 11:15 AM [facility] During your visit today, we recorded the following information about you: Temperature Pulse Respiration Blood pressure 98.5 degrees 68/minute 16/minute 106/82 Weight 66.2 kgYaz ShawnCLAUDIA forrest 10/31/2017 11:55 AM SignedSubjectiveThe history is provided by the patient. No speech and language specialist was used.ELIEZER Muñiz is a 27 year old female who presents today for CC ofcongestion. She is also having sinus headacheOnset/Duration: 4 days agoAlleviating/Treatment: Tylenol and mucinex, with little reliefAggravating: Lying down.Risk factors: Family members illBP 106/82 Pulse 68 Temp 36.9 ?C (98.5 ?F) (Tympanic) Resp 16 Wt66.2 kg (146 lb)ALLERGIESNo Known AllergiesThere is no problem list on file for this patient.No family history on file.Social History Marital status: Spouse name: Years of education: Number of children:Social History Main Topics Smoking status: Never Smoker Smokeless tobacco: Never UsedNo past medical history on file.Review of SystemsConstitutional: Negative. Negative for chills, fever and malaise/fatigue.HENT: Positive for congestion, ear pain (pressure), sinus pain and sore throat(scrathcy).Respirato ry: Positive for cough (mild occasional). Negative for sputumproduction, shortness of breath and wheezing.Cardiovascular: Negative for chest pain.Musculoskeletal: Negative for myalgias.Skin: Negative for rash.Neurological: Negative for headaches (sinus maxillary).ObjectivePhysic al ExamConstitutional: She is well-developed, well-nourished, and in no distress.HENT:Head: Normocephalic and atraumatic.Right Ear: External ear and ear canal normal. Tympanic membrane is bulging.Tympanic membrane is not injected, not erythematous and not retracted. A middleear effusion (serous) is present.Left Ear: External ear and ear canal normal. Tympanic membrane is bulging.Tympanic membrane is not injected, not erythematous and not retracted. A middleear effusion (serous) is present.Nose: Mucosal edema and rhinorrhea present. Right sinus exhibits maxillarysinus tenderness. Right sinus exhibits no frontal sinus tenderness. Left sinusexhibits maxillary sinus tenderness. Left sinus exhibits no frontal sinustenderness.Mouth/Thro at: Uvula is midline and mucous membranes are normal. Posteriororopharyngeal erythema (mild) present. No oropharyngeal exudate, posteriororopharyngeal edema or tonsillar abscesses.Eyes: Pupils are equal, round, and reactive to light. Conjunctivae and EOM arenormal.Neck: Normal range of motion.Cardiovascular: Normal rate, regular rhythm and normal heart sounds.Pulmonary/Chest: Effort normal and breath sounds normal. No respiratorydistress. She has no decreased breath sounds. She has no wheezes. She has norhonchi. She has no rales.Lymphadenopathy: Head (right side): No submental, no submandibular, no tonsillar, nopreauricular and no posterior auricular adenopathy present. Head (left side): No submental, no submandibular, no tonsillar, nopreauricular and no posterior auricular adenopathy present. She has no cervical adenopathy. Right cervical: No posterior cervical adenopathy present. Left cervical: No posterior cervical adenopathy present. Right: No supraclavicular adenopathy present. Left: No supraclavicular adenopathy present.Skin: Skin is warm and dry.Psychiatric: Affect normal.Nursing note and vitals reviewed. ASSESSMENT/PLAN:1. Acute URI - ICD9: 465.9, ICD10: J06.9- Discussed viral etiology and rationale for treatment.You need to rest as much as possible.Salt water gargles, chloraseptic spray or lozenges as needed for sore throat.Nasal saline irrigation at least 2 x day.Drink at least 8 glasses of fluids per day that aren't caffeinated.Eat a nutritious diet.Use a humidifier in your room at night.Zyrtec 10 mg By mouth daily at bedtimeFlonase or Nasonex 1 spray each nostril two times a day.Tylenol (generic acetaminophen) 500 mg-2 tabs every 8 hrs. as needed for feverand achesIbuprofen 600 mg (3-200mg tablets) every 6 hours-Sudafed (generic is fine), behind the counter, 2x30 mg tabs every 6-12 hoursas needed for congestion-http://www.[email or web address]/patient-res ources/antibiotics/. This link sharesinformation about when antibiotics may help and when they may not.* Seek medical care immediately, call 911, go to ER if you have chest pain,difficulty breathing, shortness of breath, inability to swallow.Diagnosis and treatment plan were discussed and questions were answered to thepatient's satisfaction. Pt acknowledged understanding of concepts and follow upplan.Specific signs and symptoms that would indicate the need for higher level ofcare were discussed in detail warranting prompt ER evaluation.Yaz Andrade APRN.Davida Andrade APRN.CNP 10/31/2017 11:36 AM SignedASSESSMENT/PLAN:1. Acute URI - ICD9: 465.9, ICD10: J06.9- Discussed viral etiology and rationale for treatment.You need to rest as much as possible.Salt water gargles, chloraseptic spray or lozenges as needed for sore throat.Nasal saline irrigation at least 2 x day.Drink at least 8 glasses of fluids per day that aren't caffeinated.Eat a nutritious diet.Use a humidifier in your room at night.Zyrtec 10 mg By mouth daily at bedtimeFlonase or Nasonex 1 spray each nostril two times a day.Tylenol (generic acetaminophen) 500 mg-2 tabs every 8 hrs. as needed for feverand achesIbuprofen 600 mg (3-200mg tablets) every 6 hours-Sudafed (generic is fine), behind the counter, 2x30 mg tabs every 6-12 hoursas needed for congestion-http://www.[facility].org/patient-res [facility] [place]antibiotics/. This link sharesinformation about when antibiotics may help and when they may not.* Seek medical care immediately, call 911, go to ER if you have chest pain,difficulty breathing, shortness of breath, inability to swallow.Referring Provider: SELF [200]Allergies As of Date: 10/31/2017(No Known Allergies)Date Reviewed: 10/31/2017Reviewed by: Yaz Andrade - Fully AssessedReason for Visit: Sinus Problem [99] Cmt: pressure AND drainage, headache X 4days.Primary Visit Diagnosis:Acute URI [J06.9]Prescriptions as of 10/31/2017 Sig: GENERESS FE ORAL Take by mouth.Problem List As Of Date: 10/31/2017(None) Other instructions from your clinician: ASSESSMENT/PLAN: 1. Acute URI - ICD9: 465.9, ICD10: J06.9 - Discussed viral etiology and rationale for treatment. You need to rest as much as possible. Salt water gargles, chloraseptic spray or lozenges as needed for sore throat. Nasal saline irrigation at least 2 x day. Drink at least 8 glasses of fluids per day that aren't caffeinated. Eat a nutritious diet. Use a humidifier in your room at night. Zyrtec 10 mg By mouth daily at bedtime Flonase or Nasonex 1 spray each nostril two times a day. Tylenol (generic acetaminophen) 500 mg-2 tabs every 8 hrs. as needed for fever and aches Ibuprofen 600 mg (3-200mg tablets) every 6 hours -Sudafed (generic is fine), behind the counter, 2x30 mg tabs every 6-12 hours as needed for congestion -http://www.[facility] .org/patient-resources/ant ibiotics/. This link shares information about when antibiotics may help and when they may not. * Seek medical care immediately, call 911, go to ER if you have chest pain, difficulty breathing, shortness of breath, inability to swallow. Status:Closed by YAZ ANDRADE CNP on 10/31/17 Normal [facility] PROGRESSon 10-31-2017 Protein mass conc HNO ID: [id number] thor: Yaz Rivera) Ninfaervice: (none)Author Type: Nurse PractitionerType: Progress NotesFiled: 10/31/2017 11:55 AMNote Text:SubjectiveThe history is provided by the patient. No speech and language specialist was used.HPI Libby Muñiz is a 27 year old female who presents today for CC ofcongestion. She is also having sinus headacheOnset/Duration: 4 days agoAlleviating/Treatment: Tylenol and mucinex, with little reliefAggravating: Lying down.Risk factors: Family members illBP 106/82 Pulse 68 Temp 36.9 ?C (98.5 ?F) (Tympanic) Resp 16 Wt 66.2 kg (146 lb)ALLERGIESNo Known AllergiesThere is no problem list on file for this patient.No family history on file.Social History Marital status: Spouse name: Years of education: Number of children:Social History Main Topics Smoking status: Never Smoker Smokeless tobacco: Never UsedNo past medical history on file.Review of SystemsConstitutional: Negative. Negative for chills, fever and malaise/fatigue.HENT: Positive for congestion, ear pain (pressure), sinus pain and sorethroat (scrathcy).Respiratory: Positive for cough (mild occasional). Negative for sputumproduction, shortness of breath and wheezing.Cardiovascular: Negative for chest pain.Musculoskeletal: Negative for myalgias.Skin: Negative for rash.Neurological: Negative for headaches (sinus maxillary).ObjectivePhysic al ExamConstitutional: She is well-developed, well-nourished, and in no distress.HENT:Head: Normocephalic and atraumatic.Right Ear: External ear and ear canal normal. Tympanic membrane isbulging. Tympanic membrane is not injected, not erythematous and notretracted. A middle ear effusion (serous) is present.Left Ear: External ear and ear canal normal. Tympanic membrane is bulging.Tympanic membrane is not injected, not erythematous and not retracted. Amiddle ear effusion (serous) is present.Nose: Mucosal edema and rhinorrhea present. Right sinus exhibits maxillarysinus tenderness. Right sinus exhibits no frontal sinus tenderness. Leftsinus exhibits maxillary sinus tenderness. Left sinus exhibits no frontalsinus tenderness.Mouth/Throat: Uvula is midline and mucous membranes are normal. Posteriororopharyngeal erythema (mild) present. No oropharyngeal exudate, posteriororopharyngeal edema or tonsillar abscesses.Eyes: Pupils are equal, round, and reactive to light. Conjunctivae and EOMare normal.Neck: Normal range of motion.Cardiovascular: Normal rate, regular rhythm and normal heart sounds.Pulmonary/Chest: Effort normal and breath sounds normal. No respiratorydistress. She has no decreased breath sounds. She has no wheezes. She hasno rhonchi. She has no rales.Lymphadenopathy: Head (right side): No submental, no submandibular, no tonsillar, nopreauricular and no posterior auricular adenopathy present. Head (left side): No submental, no submandibular, no tonsillar, nopreauricular and no posterior auricular adenopathy present. She has no cervical adenopathy. Right cervical: No posterior cervical adenopathy present. Left cervical: No posterior cervical adenopathy present. Right: No supraclavicular adenopathy present. Left: No supraclavicular adenopathy present.Skin: Skin is warm and dry.Psychiatric: Affect normal.Nursing note and vitals reviewed. ASSESSMENT/PLAN:1. Acute URI - ICD9: 465.9, ICD10: J06.9- Discussed viral etiology and rationale for treatment.You need to rest as much as possible.Salt water gargles, chloraseptic spray or lozenges as needed for sorethroat.Nasal saline irrigation at least 2 x day.Drink at least 8 glasses of fluids per day that aren't caffeinated.Eat a nutritious diet.Use a humidifier in your room at night.Zyrtec 10 mg By mouth daily at bedtimeFlonase or Nasonex 1 spray each nostril two times a day.Tylenol (generic acetaminophen) 500 mg-2 tabs every 8 hrs. as needed forfever and achesIbuprofen 600 mg (3-200mg tablets) every 6 hours-Sudafed (generic is fine), behind the counter, 2x30 mg tabs every 6-12hours as needed for congestion-http://www.[email or web address]/patient-res ources/antibiotics/. This linkshares information about when antibiotics may help and when they may not.* Seek medical care immediately, call 911, go to ER if you have chestpain, difficulty breathing, shortness of breath, inability to swallow.Diagnosis and treatment plan were discussed and questions were answered tothe patient's satisfaction. Pt acknowledged understanding of concepts andfollow up plan.Specific signs and symptoms that would indicate the need for higher levelof care were discussed in detail warranting prompt ER evaluation.Yaz Andrade APRN.[employer]MENT REPAIRER Normal [facility] Encounters Encounter Date Encounter Type Care Provider Facility Start: 10-03-2024 End: 10-03-2024 Patient encounter procedure Tsering OLIVER -[facility] Work Phone: Start: 10-03-2024 End: 10-03-2024 ambulatory Tsering Castorena Facility:[facility] Start: 03-25-2024 Encounter for other preprocedural examination Pete Pitt [facility] Start: 02-27-2024 End: 02-27-2024 ambulatory Pete Pitt Facility:[facility] Start: 02-22-2024 End: 02-22-2024 ambulatory Pete Pitt Facility:[facility] Start: 01-03-2024 End: 01-03-2024 ambulatory Linda Walden Facility:[facility] Start: 12-21-2023 End: 12-21-2023 ambulatory Juan Pablo Chawla Facility:[facility] Start: 12-14-2023 End: 12-15-2023 ambulatory Linda Walden Facility:[facility] Start: 12-13-2023 ambulatory Mike Byrne y:[facility] Start: 12-13-2023 End: 12-14-2023 Evaluation and management of inpatient Mike Morley Facility:[facility] Start: 12-13-2023 End: 12-13-2023 ambulatory Tsering Castorena Facility:[facility] Start: 10-31-2017 End: 11-01-2017 Patient encounter [facility] Procedures Date Procedure Procedure Detail Performing Clinician History of cholecystectomy S/P cholecyste ctomy Linda Walden MD Work Phone: Plan of Treatment Date Care Activity Detail Author CBC W Auto Differential panel - Blood [facility] Clostridioides diffi cile DNA [Presence] in Unspecified specimen by WILLIE with probe detection [facility] Comprehensive metabo lic 2000 panel - Serum or Plasma [facility] Giardia lamblia Ag [ Presence] in Stool by Immunoassay [facility] Nucleic acid assay [facility] Ova OR parasites identification [facility] Protein measurement [facility] Triacylglycerol lipase measurement [facility] US Abdomen limited [facility] Payers Date Payer Category Payer Self-pay 2023 Unknown [id number] Unknown [id number] 2.16.8 [id number] Unknown [id number] 2.16.8 [id number] Unknown [id number] 2.16.8 40.1.276383.3.579.2.462 Unknown [id number] 2.16.8 40.1.567647.3.579.2.462 Unknown [id number] 2.16.8 40.1.739246.3.579.2.462 Unknown [id number] 2.16.8 40.1.621490.3.579.2.462 Unknown [id number] 2.16.8 40.1.206085.3.579.2.462 Unknown [id number] 2.16.8 40.1.296608.3.579.2.462 Unknown [id number] 2.16.8 40.1.554140.3.579.2.462 Unknown [id number] 2.16.8 40.1.996790.3.579.2.462 Unknown [id number] 2.16.8 40.1.769228.3.579.2.462 Unknown [id number] 2.16.8 40.1.942935.3.579.2.462 Unknown [id number] 2.16.8 40.1.060977.3.579.2.462 Unknown [id number] 2.16.8 40.1.011944.3.579.2.462 Unknown [id number] 2.16.8 40.1.632532.3.579.2.462 Unknown [id number] 2.16.8 40.1.133244.3.579.2.462 Unknown [id number] 2.16.8 40.1.180818.3.579.2.462 Unknown [id number] 2.16.8 40.1.205774.3.579.2.462 Social History Date Type Detail Facility [facility]: [facility]24 [facility] Start: 1990 Sex Assigned At Female W [facility] Medical Equipment Procedure Code Equipment Code Equipment Original Text Equipment Identifier Dates Total cholecystectomy with exploration of common bile duct CLIP,PENG ALLISON FDA Start: 12-21-2023 Total cholecystectomy with exploration of common bile duct CLIP,PENG ALLISON FDA Start: 12-21-2023 ERCP (endoscopic retrograde cholangiopancreatograph y) ([id number]) Polymeric biliary stent, non-bioabsorbable [id number] FDA Start: 12-14-2023 Progress note 10-03-2024 Note Date & Type Note Facility 10-03-2024 Progress note [facility] Progress note 06-04-2024 Note Date & Type Note Facility 06-04-2024 Progress note Note Date/Time October 03, 2024 8:01am [facility] [address] [place] [address] OFFICE VISIT Date of Service: 10/03/24 MR#: [id number] Acct: [id number] Name: LIBBY BEARDEN Rep #: [id number] : 1990 Provider: BENITO Alfaro Age/Sex: 34/F Location[facility] Status: Signed Intake Vital Signs 02/22/24 10:28 Height 5 ft 4 in Intake Visit Reasons: Vomiting/Nausea/Loss of Appetite Chief Complaint: abd pain Allergies No Known Allergies Allergy (Verified 02/22/24 10:26) Medications ?Medication ?Instructions ?Recorded ?Confirmed ?Type norethin-ethinyl estradiol-iron 1 tab PO QDAY 12/13/23 02/21/24 History 0.8 mg-25 mcg(24)/75 mg(4) chew tablet omeprazole 20 mg capsule,delayed 40 mg PO BID 10/03/24 10/03/24 History release ondansetron 8 mg disintegrating 8 mg PO TID 10/03/24 0 10/03/24 History tablet sucralfate 1 gram tablet 1 g PO BID #30 tabs 10/03/24 10/03/24 Rx Nurse's Note: OV 10/03/24 Pt here for a f/u and reports nausea, vomiting, gas, bloating, diarrhea, abdominal pain, and constipation. Pt reports she had diarrhea for a week and after taking the zofran and increasing omeprazole, she is now experiencing constipation. Pt also reports abdominal pain all the time and epigastric discomfort. Pt is taking omeprazole daily and ondansetron as needed. [facility] Medical History Wears contact lenses Non-smoker Gastric ulcer Surgical History S/P cholecystectomy Hx of tonsillectomy S/P ERCP Family History Other Hyperlipidemia Hypertension Social History Smoking Status: Never smoker alcohol intake: current alcohol intake frequency: a few times a week substance use type: does not use frequency: 1-2 times per week HPI HPI Chief Complaint: abd pain Details: JUNE SULEIMAN, is a 34 F who presents to the office today for f/u. [facility] established 12.13.23 with epigastric pain x3 days. Unable to eat due to pain and n/v. Pt had similar episoe in the past and presented to the ED. Given omeprazole and discharged home. Advised pt present to the ED due to symptoms andpain. On exam pt was visibly jaundice with scerlal icterus. [facility] ED 12.13.23 work up in the ED showing bilirubin 9.7, AST 318, ALT 445 and GSA101. ABD/pelvis gallbladder distention with dilated intrahepatic biliary ducts as well as well as dilated cbd down to the level of the ampulla of Vater. Correlation with US recommend. A lesion in the region of the ampullla of Vater should be removed. Admitted for ERCP and cholecystectomy ERCP 12.14.23 - A single localized biliary stricture was found. The stricture was inflammatory. The entire biliary tree was dilated, with a stone causing an obstruction. Choledocholithiasis with an obstruction was found. Complete removal was accomplished by biliary sphincterotomy and balloon extraction. A pancreatic sphincterotomy was performed. The ventral pancreatic duct was swept and nothing was found. A biliary sphincterotomy was performed. The biliary tree was swept. One temporary stent was placed into the common bile duct. Cholecystectomy 12.20.24 ERCP Stent removal 02.21.25 OV 10.03.24 patient here today for epigastric pain, nausea, vomiting and diarrheaover the past week. Pain is worse with oral intake. She is unable to categorize her pain. She denies heartburn. Patient's primary care provider increased her omeprazole to 40 mg daily. She is also taking Zofran 8 mg once a day. Since starting these medications she has had constipation without a bowel movement in a few days. She endorses 2 instances of subjective fever over the past week and a half. ROS Const Constitutional: Positive for fever(s) and weight change; No fatigue ENT ENT: No difficulty swallowing Gastro GI: Positive for abdominal pain, bloating, change in bowel habits, constipation,heartburn, nausea/dyspepsia and vomiting; No belching, change in stool character, coffee ground emesis, cramping, diarrhea, difficulty swallowing, feeling full early, excessive flatus, incontinent of stools, Vomiting blood/hematemesis, Blood in stool, loose stools, Black,tarry stools, pain with swallowing or other Musc Musculoskeletal: Positive for back pain; No joint pain Skin Skin: No yellowing of the eye or itchy eyes Psych Psychiatric: No anxiety and No depression Endo Endocrine: Positive for weight change; No fatigue Aller/Imm Allergy/Immunologic: No itchy eyes Laz/Lymp Hematologic/Lymphatic: No easy bleeding or easy bruising Exam Const General: cooperative, healthy appearing and comfortable Orientation: alert [facility] Head: normal to inspection Eyes General: appearance normal, both eyes and all related structures Neck Neck: normal visual inspection Chest Chest palpation & inspection: normal inspection of the chest Resp Effort & Inspection: normal respiratory effort Cardio Rate: regular rate Rhythm: regular rhythm GI Inspection: normal to inspection Auscultation: normal bowel sounds Palpation: soft and nontender Assessment and Plan Assessment and Plan (1) Elevated liver enzymes: Status: Acute (2) Cholelithiasis: Status: Acute (3) Abdominal pain: Status: Acute Qualifiers: Abdominal location: epigastric Qualified Code(s): R10.13 - Epigastric pain Plan: Libby is a 34-year-old female patient here today for evaluation of epigastric pain, nausea vomiting, diarrhea over the past week and a half. Patient initially established with clinic in December 2024 for right upper quadrant pain and jaundice. Following this visit she was advised to present to the ED where she had workup. She was found to have an elevated bilirubin and LFTs. Imaging showing a distended gallbladder and dilated common bile duct. She underwent ERCP with stent placement and stone removal. She was discharged and scheduled for cholecystectomy. She did undergo repeat ERCP for stent removal. Patient now having epigastric pain worse with eating. Also with complaints of diarrhea and nausea and vomiting. Due to patient's past medical history out of concern for stone in the common bile duct. She will undergo right upper quadrant ultrasound. I have also ordered CBC and CMP. She is no longer having diarrhea due to taking Zofran once a day however will order stool testing to rule out infection or inflammation. She will be scheduled for an EGD. If her symptoms resolve prior to EGD she may cancel. Patient was also advised to continue omeprazole 40 mg twice daily and prescription for sucralfate 1 g twice daily sent to pharmacy. - Right upper quadrant ultrasound - CBC and CMP - Stool testing - EGD - Continue omeprazole 40 mg twice daily -Sucralfate 1 g twice daily Orders: Orders CBC W/Diff, Automated Today K80.20 - Calculus of gallbladder without cholecystitis without obstruction, R10.13 - Epigastric pain, R74.8 - Abnormal levels of other serum enzymes Comprehensive Metabolic Profil Today K80.20 - Calculus of gallbladder without cholecystitis without obstruction, R10.13 - Epigastric pain, R74.8 - Abnormal levels of other serum enzymes Lipase Today K80.20 - Calculus of gallbladder without cholecystitis without obstruction, R10.13 - Epigastric pain, R74.8 - Abnormal levels of other serum enzymes ENTERIC PATHOGEN PANEL STOOL Today K58.9 - Irritable bowel syndrome, unspecified, K80.20 - Calculus of gallbladder without cholecystitis without obstruction, R10.13 - Epigastric pain Giardia Lamblia, Stool EIA Today K80.20 - Calculus of gallbladder without cholecystitis without obstruction, R10.13 - Epigastric pain Ova and Parasites 8623 Today K58.9 - Irritable bowel syndrome, unspecified, K80.20 - Calculus of gallbladder without cholecystitis without obstruction, R10.13 - Epigastric pain Calprotectin, Stool Today K80.20 - Calculus of gallbladder without cholecystitis without obstruction, R10.13 - Epigastric pain CDIFF (PCR) Today K80.20 - Calculus of gallbladder without cholecystitis without obstruction, R10.13 - Epigastric pain Abdomen Limited Today K80.20 - Calculus of gallbladder without cholecystitis without obstruction, R10.13 - Epigastric pain, R74.8 - Abnormal levels of other serum enzymes Medications: New sucralfate 1 g PO BID 30 tabs 2RF Coding Level of Care Code Off vis,est,level 4 Diagnoses Elevated liver enzymes R74.8 Cholelithiasis K80.20 Epigastric pain R10.13 Abdominal location: epigastric 10/03/24 0801 <Electronically signed by Tsering OLIVER> Date _ Tsering OLIVER Cosigner Signature: Date (if applicable) CC: ~ [facility] [employer] [facility] Work Phone: Clinical Note 02-22-2024 Note Date & Type Note Facility 02-22-2024 Note [facility] Medical Records Department [address] [place] [id number] History Physical Exam 02/22/24 1101 MR#: [id number] Acct: [id number] Name: LIBBY BEARDEN Rep #: [id number] : 1990 33 From: Pete Friend DO PCP: Linda Walden MD Status:[facility] Location: [place] [address] HPI - General General Date of Admission: 02/22/24 Date of Service: 02/22/24 Chief Complaint: Stent removal HPI Narrative LIBBY SULEIMAN, is a 33 y/o F I am following s/p laparoscopic cholecystectomy with intraoperative cholangiogram by Dr. Chawla on 12/21/23. Patient also had an ERCP with stent placement and stone removal on 12/14/23. Patient tolerated the procedure well. Patient denies any abdominal pain/discomfort. She denies any nausea, vomiting, fever. She notes appetite has returned to normal. She notes bowel habits have returned to normal. She continues to duct stent removal. [facility] Medical History Wears contact lenses Non-smoker Gastric ulcer Home Medications ???Medication ???Instructions ???Recorded ???Last Taken ???Type norethin-ethinyl estradiol-iron 1 tab PO QDAY 12/13/23 12/12/23 History 0.8 mg-25 mcg(24)/75 mg(4) chew tablet omeprazole 20 mg capsule,delayed 20 mg PO BID 12/20/23 Unknown History release Allergy/AdvReac Type Severity Reaction Status Date / Time No Known Allergies Allergy Verified 02/22/24 10:26 Family History Other Hyperlipidemia Hypertension Surgical History S/P cholecystectomy Hx of tonsillectomy S/P ERCP Social History Smoking Status: Never smoker alcohol intake: current alcohol intake frequency: a few times a week substance use type: does not use frequency: 1-2 times per week ROS Constitutional Constitutional: Reports anorexia and fever(s); Denies chills or fatigue Eyes Eyes: Denies blurry vision ENT HEENT: Denies abnormal hearing or neck pain Cardiovascular Cardiovascular: Denies chest pain Respiratory/Chest Respiratory/Chest: Denies cough or dyspnea Gastrointestinal Gastrointestinal: Reports abdominal pain, nausea and vomiting; Denies diarrhea or dysphagia Genitourinary Genitourinary: Denies change in urinary stream Musculoskeletal Musculoskeletal: Denies abnormal gait Integumentary Integumentary: Denies jaundice Neurologic Neurologic: Denies abnormal gait Psychiatric Psychiatric: Denies anxiety Endocrine Endocrinology: Denies flushing Hematologic/Lymphatic Hematologic/Lymphatic: Denies easy bleeding Vital Signs Vital Signs Vital Signs: 02/22/24 10:28 02/22/24 10:30 Temperature 99 F Temperature Source Temporal Pulse Rate 80 Respiratory Rate 16 Respiratory Pattern Normal Blood Pressure 123/78 H Blood Pressure Mean 93 Blood Pressure Source Monitor Blood Pressure Position Semi-Fowlers Blood Pressure Location Right Arm Pulse Ox 99 Oxygen Delivery Method Room Air Weight Weight: 155 lb 3.287 oz Body Mass Index (BMI) 26.6 Physical Exam Narrative General: Alert, Oriented x3, Cooperative, No apparent distress HEENT: Atraumatic, PERRLA, EOMI, Normocephalic, mild scleral icterus Oral: Moist Mucosa Neck: Supple, No JVD Lungs: Clear to auscultation, Normal air movement, No rhonchi, No wheeze, No rales Cardiovascular: Regular rate, Regular Rhythm, Normal S1, Normal S2, No murmurs Abdomen: Soft, minimally tender, Non-Distended, No Hepato-splenomegaly Extremities: No edema, Capillary Refill Less than 3 Seconds Skin: No rashes, No breakdown, jaundice Musculoskeletal: No Tenderness to Palpation of Joints or Extremities Neurological: No focal neurological deficits, Motor Exam 5/5 strength throughout, Sensory exam intact to light touch and pain Psych/Mental Status: Normal Affect, Appropriate Results Lab / Micro Data Labs: Laboratory Results - last 24 hr 02/22/24 10:20: Urine Test Negative Assessment Plan Assessment/Plan (1) S/P ERCP: (2) S/P cholecystectomy: (3) Cholelithiasis: (4) Elevated liver enzymes: (5) Biliary obstruction: PLAN: Plan 33-year-old presenting with right upper quadrant pain and discovered to have cholestatic hepatitis with jaundice secondary to biliary obstruction. Continue with cholecystectomy and ERCP with stone removal and stent placement. She comes in today for stent removal or replacement. She was explained alternatives, risk, benefits, understanding bleeding, infection, sepsis, perforation, need for return to . She will have an ASA of 3 02/22/24 1103 Cosigner Signature (if applicable): CC: Linda Walden MD; Pete Friend, (more content not included)... [facility] Clinical Note 12-21-2023 Note Date & Type Note Facility 12-21-2023 Note [facility] Medical Records Department [address] [place] [address] History Physical Exam 12/21/23 1105 MR#: [id number] Acct: [id number] Name: LIBBY BEARDEN Rep #: [id number] : 1990 33 From: Juan Pablo Chawla MD PCP: Linda Walden MD Status:[facility] Location: [facility] History and Physical Date of Admission: 12/21/23 Assessment Plan Assessment/Plan (1) Biliary obstruction: PLAN: Patient has biliary obstruction likely due to choledocholithiasis. She is having ERCP today. Dr. Pitt plans on placing a stent. This should preclude any further blockage in the interim and I will plan to remove her gallbladder next week. I discussed the procedure in detail with the patient. I discussed the risks, benefits, and alternatives of the procedure. I discussed the risks including but not limited to bleeding, infection, injury to surrounding organs such as the liver, bile duct, bowels. I did discuss the possibility of having to convert to an open procedure as well as the possibility that if any injuries occurred this may necessitate further surgery at a tertiary care center. Juan Pablo Chawla MD Pager: [facility] [address] [place] [address], [address] [place] [address] Office: HPI Consult Data Date of Consult: 12/14/23 HPI Narrative HPI Narrative: LIBBY BEARDEN, jorge a 33 F who presents with fever and epigastric pain radiating to the back. Patient was having nausea and vomiting as well. [facility] Medical History Gastric ulcer Medical History no medical history Home Medications ???Medication ???Instructions ???Recorded ???Last Taken ???Type omeprazole 20 mg capsule,delayed 20 mg PO DAILY #30 CAPSULES 08/02/23 12/13/23 Rx release norethin-ethinyl estradiol-iron 1 tab PO QDAY 12/13/23 12/12/23 History 0.8 mg-25 mcg(24)/75 mg(4) chew tablet ondansetron 8 mg disintegrating 8 mg PO Q8H PRN nausea 12/13/23 12/12/23 History tablet Allergy/AdvReac Type Severity Reaction Status Date / Time No Known Allergies Allergy Verified 12/13/23 13:59 Family History Other Hyperlipidemia Hypertension Surgical History no surgical history Social History Smoking Status: Never smoker alcohol intake: current alcohol intake frequency: a few times a week substance use type: does not use frequency: 1-2 times per week ROS Constitutional Constitutional: Reports anorexia and fever(s); Denies chills or fatigue Eyes Eyes: Denies blurry vision ENT HEENT: Denies abnormal hearing or neck pain Cardiovascular Cardiovascular: Denies chest pain Respiratory/Chest Respiratory/Chest: Denies cough or dyspnea Gastrointestinal Gastrointestinal: Reports abdominal pain, nausea and vomiting; Denies diarrhea or dysphagia Genitourinary Genitourinary: Denies change in urinary stream Musculoskeletal Musculoskeletal: Denies abnormal gait Integumentary Integumentary: Denies jaundice Neurologic Neurologic: Denies abnormal gait Psychiatric Psychiatric: Denies anxiety Endocrine Endocrinology: Denies flushing Hematologic/Lymphatic Hematologic/Lymphatic: Denies easy bleeding Physical Exam Const alert and oriented x3 HEENT normocephalic Eyes PERRL Resp normal respiratory effort Cardio Rate: regular rate Rhythm: regular rhythm GI soft to palpation and non-distended Palpation: tender Extremity normal to inspection Lab / Micro Data 12/14/23 06:15 12/14/23 06:15 Labs: Laboratory Results - last 24 hr 12/13/23 14:11: WBC 9.1, RBC 4.19 L, Hgb 13.1, Hct 39.3, MCV 93.8, MCH 31.3, MCHC 33.3, RDW Std Deviation 41.0, RDW Coeff of Remigio 11.9, Plt Count 416, MPV 10.8, Immature Gran % (Auto) 0.400, Neut % (Auto) 73.2 H, Lymph % (Auto) 16.1 L, [place] % (Auto) 9.8, Eos % (Auto) 0.3, Baso % (Auto) 0.2, Absolute Neuts (auto) 6.6, Absolute Lymphs (auto) 1.46, Nucleated RBC % 0, Sodium 135 L, Potassium 3.8, Chloride 98, Carbon Dioxide 26.0, Anion Gap 11, BUN 8, Creatinine 0.71, Estim Creat Clear Calc 97.32, Est GFR (MDRD) Af Amer 122, Est GFR (MDRD) Non-Af 101, BUN/Creatinine Ratio 11.3, Glucose 80, Calcium 10.1, Total Bilirubin 9.70 H, AST 318 H, ALT 445 H, Alkaline Phosphatase 253 H, Total Protein 8.5 H, Albumin 4.1, Globulin 4.4 H, Albumin/Globulin Ratio 0.9, Lipase 70, Serum , Qual NEGATIVE 12/13/23 14:34: Urine Color Yellow, Urine Clarity Sl. Cloudy, Urine pH 6.5, Ur Specific Vaughan 1.015, Urine Protein 30 H, Urine Glucose (UA) Normal, Urine Ketones 150 A*, Urine Occult Blood Negative, Urine Nitrite Positive H, Urine Bilirubin 6 H, Urine Urobilinogen 8 H, Ur Leukocyte Esterase 25 H, U (more content not included)... [facility] Discharge summary note 12-14-2023 Note Date & Type Note Facility 12-14-2023 Note [facility] Medical Records Department [address] [facility] [place] [address] Discharge Summary 12/14/23 1556 MR#: [id number] Acct: [id number] Name: LIBBY BEARDEN Rep #: [id number] : 1990 33 From: Yang Fink MD PCP: Linda Walden MD Status:ADM IN Location: [place] [address] Providers Date of Admission: 12/13/23 Primary Care Physician: Linda Walden MD Consultations 12/13/23 17:19 Consult: Gastroenterology Routine Consulting Provider: [facility] Reason for Consult: Choledocholithiasis EMERGENT Consult: No Notified: Yes Date Notified: 12/13/23 Time Notified: 15:47 Method of Notification: ED Physician Initiated Consult: General Surgery Routine Consulting Provider: Juan Pablo Chawla Reason for Consult: Choledocholithiasis EMERGENT Consult: No Notified: Yes Date Notified: 12/13/23 Time Notified: 15:47 Method of Notification: ED Physician Initiated Reason For Visit: CHOLEDOCHOLITHIASIS Diagnosis Discharge Diagnosis (1) Elevated liver enzymes: Status: Acute Code(s): R74.8 - Abnormal levels of other serum enzymes (2) Biliary obstruction: Status: Acute Code(s): K83.1 - Obstruction of bile duct (3) Abdominal pain: Status: Acute Code(s): R10.9 - Unspecified abdominal pain Qualifiers: Abdominal location: epigastric Qualified Code(s): R10.13 - Epigastric pain Medications at Discharge Home Medications omeprazole 20 mg capsule,delayed release 20 mg PO DAILY #30 CAPSULES 08/02/23 norethin-ethinyl estradiol-iron 0.8 mg-25 mcg(24)/75 mg(4) chew tablet 1 tab PO QDAY 12/13/23 amoxicillin 875 mg-potassium clavulanate 125 mg tablet 1 tab PO BID #14 tabs 12/14/23 ondansetron 8 mg disintegrating tablet 8 mg PO Q8H PRN nausea 3 days #10 tabs 12/14/23 Hospital Course Operations ERCP Procedures None Summary of Care Provided Minutes Spent on Discharge: 33 Hospital Course: Per HPI: LIBBY BEARDEN, is a 33 F with no significant medical history who presents emergency department with excruciating epigastric pain that radiated to her back. The pain is persistent. She describes the pain as sharp. The pain started about 2 weeks ago. Associated with her symptoms is nausea and vomiting. Also she reports a fever of 101 ???F at home. Patient was started on a PPI and Carafate at home. However his symptoms persisted. As her symptoms progressed she noticed yellowish discoloration of her skin in her eyes. Also her urine has been dark. Hospital Course: 1. Choledocholithiasis with cholelithiasis and borderline gallbladder with hyperbilirubinemia/GERD??? 33-year-old female presented to the hospital with several months of epigastric abdominal pain. Initially thought that it was GERD she was started on a PPI however she had some spiral icterus and jaundice and her bilirubin was elevated on evaluation in the ER here. She was found to have biliary dilatation on imaging and she had an ERCP today that demonstrated choledocholithiasis with inflammatory stricture. The ducts were swept and a stent was placed and she is feeling significantly better this afternoon. I discussed the case with gastroenterology who felt that she would be safe for discharge today, I discussed with her the plan for possible discharge today she expressed understanding of the risks and benefits to going home and would like to go home today. She will be given 7 days of Augmentin and she will follow-up on , 12/21/2023 for cholecystectomy. In the meantime I recommended she follow-up with her PCP in 3 to 5 days and obtain a CMP to monitor her bilirubin and her liver function test. Will provide her with some Zofran as well and I recommend probiotic on discharge given the antibiotics that she will be prescribed. Weight / BMI Weight Weight: 148 lb Body Mass Index (BMI) 28.9 ABG / Lab / Microbiology Data 12/14/23 06:15 12/14/23 06:15 Laboratory: Laboratory Results - last 24 hr 12/14/23 06:15: WBC 6.6, RBC 3.84 L, Hgb 11.8 L, Hct 35.1 L, MCV 91.4, MCH 30.7, MCHC 33.6, RDW Std Deviation 39.8, RDW Coeff of Remigio 11.9, Plt Count 364, MPV 10.4, Immature Gran % (Auto) 0.500, Neut % (Auto) 64.9, Lymph % (Auto) 19.4, [place] % (Auto) 13.3 H, Eos % (Auto) 1.4, Baso % (Auto) 0.5, Absolute Neuts (auto) 4.3, Absolute Lymphs (auto) 1.28, Nucleated RBC % 0, Sodium 137, Potassium 3.6, Chloride 102, Carbon Dioxide 27.0, Anion Gap 8, BUN 8, Creatinine 0.64, Estim Creat Clear Calc 106.88, Est GFR (MDRD) Af Amer 136, Est GFR (MDRD) Non-Af 113, BUN/Creatinine Ratio 12.4, Glucose 97, Calcium 9.4, Total Bilirubin 8.30 H, AST 427 H, ALT 573 H, Alkaline Phosphatase 235 H, Total Protein 7.3, Albumin 3.5, Globulin 3.8, Albumin/Globulin Ratio 0.9, Lipase 89 H Radiography Diagnostic Testing: Radiology Impression Gallbladder Ultrasound 12/13/23 15:42 IMPRESSION: Cholelithiasis with (more content not included)... [facility] Evaluation note Note Date & Type Note Facility Evaluation note Diagnosis Onset Date Resolution Abdominal pain acute October 03, 2024 7:33am Cholelithiasis acute October 03, 2024 7:33am Elevated liver enzymes acute Ju ly 2024 7:33am [facility] Work Phone: Reason for referral (narrative) Note Date & Type Note Facility Reason for referral (narrative) No reason for referral information available [facility] Work Phone: Summary Purpose Family History Relationship Condition Age at Onset Recorded Date/T blank Not Specified Hyperlipidemia Unknown Hypertension Unknown Advance Directives No Advanced Directives Records FoundNo Advanced Directives Records Found Chief Complaint and Reason for Visit Chief Complaint Admit Date Vomiting/Nausea/Loss of Appetite October 032024 7:33am Reason for Visit Admit Date Abdominal pain October 03, 2024 7:33 am Cholelithiasis October 03, 2024 7:33 am Elevated liver enzymes October 03, 2024 7 :33am Additional Source Comments INFORMATION SOURCE (unrecogn ized section and content) DATE CREATED AUTHOR 11/04/2017 [facility] DATE CREATED AUTHOR AUTHOR'S ORGANIZ ATION 09/29/2024 [facility] Care Teams (unrecognized sec tion and content) Team Status: Active Member Role/Relationship Status Dates Dr. Naman Wilkerson MD Family Provider Active Linda Walden MD Primary Care Provider Active Team Status: Inactive Member Role/Relationship Status Dates Linda Walden MD Primary Care Provider Active S tart: October 03, 2024 End: October 03, 2024 Linda Walden MD Referring Provider Active Star t: October 03, 2024 End: October 03, 2024 BENITO Alfaro Attending Provider Active Start: October 03, 2024 End: October 03, 2024 Goals (unrecognized section and content) Goals may be documented in a n alternate section FOR RECORDS PERTAINING TO PATIENTS WHO ARE OR HAVE BEEN ENROLLED IN A CHEMICAL DEPENDENCY/SUBSTANCEABUSE PROGRAM, SOME INFORMATION MAY BE OMITTED. This clinical summary was aggregated from multiple sources. Caution should be exercised in using it in the provision of clinical care. This summary normalizes information from multiple sources, and as a consequence, information in this document may materially change the coding, format and clinical context of patient data. In addition, data may be omitted in some cases. CLINICAL DECISIONS SHOULD BE BASED ON THE PRIMARY CLINICAL RECORDS. [employer] provides no warranty or guarantee of the accuracy or completeness of information in this document.
[2024-10-03 09:00] LABS: Hematocrit 36.6 % (37-47); Hemoglobin 12.7 g/dL (12.0-15.0); Immature Granulocytes Count 0.020 X10^3/uL (0.0-0.0); Mean Corp Hgb Conc 34.7 g/dL (32-36); Mean Corpuscular Volume 91.7 fL (81-99); Mean Platelet Vol. 11.3 fl (6.2-12.0); NRBC Flagged by Analyzer 0 % (0-5); Platelet Count 334 K/mm3 (150-450); RBC Distribution Width CV 11.8 % (11.6-14.6); RBC Distribution Width SD 39.4 fl (35.1-43.9); Red Blood Count 3.99 M/mm3 (4.2-5.4); White Blood Count 6.4 K/mm3 (4.4-11.0)
[2024-10-03 09:43] LABS: AST(SGOT) 20 U/L (<=31); Alanine Aminotransfer ALT/SGPT 21 U/L (<=34); Albumin, Serum 4.7 g/dL (3.5-5.0); Alkaline Phosphatase 56 U/L (35-104); Anion Gap 12 (5-15); BUN 10 mg/dL (4-19); BUN/Creat Ratio 13.9 RATIO (10-20); Calcium,Total 9.6 mg/dL (7.6-11.0); Carbon Dioxide 23.2 mmol/L (21.0-32.0); Chloride 104 mmol/L (98-108); Globulin 2.8 g/dL (2.2-4.2); Glucose 86 mg/dL (70-99); Lipase 82 U/L (13-75); Potassium 4.0 mmol/L (3.3-5.1)
== END | disposition home or self-care (01) ==
LOC: LAB 08:06
PROVIDERS: PCP Family Medicine; Referring Provider Student in an Organized Health Care Education/Training Program; Visit Provider Student in an Organized Health Care Education/Training Program
DX: R74.8 Abnormal levels of other serum enzymes (principal); K80.20 Calculus of gallbladder without cholecystitis without obstruction
CPT/HCPCS: 36415; 80053; 83690; 85025